=== PATIENT | male | born 1960 | race Caucasian/White ===

== ENCOUNTER 2023-09-07 22:01 | Inpatient (IN) | payer OTHER, MEDICARE, SELFPAY ==
[2023-09-07] VITALS (16 sets, daily range): BP systolic 100–133; BP diastolic 75–98; BMI 29.3; BMI 29.2
[2023-09-07 18:25] LABS: % Basophils 0.3 % (0-2); % Immature Granulocytes 0.5 % (0-0.5); % Lymphocytes 10.4 % (20.5-51.1); % Monocytes 11.2 % (1.7-9.3); % Neutrophils 77.6 % (42.2-75.2); Absolute Basophils 0.1 10^3/uL (0-0.2); Absolute Immature Granulocytes 0.1 10^3/uL (0-0.05); Absolute Lymphocytes 1.7 10^3/uL (1.2-3.4); Absolute Monocytes 1.8 10^3/uL (0.1-0.6); Absolute Neutrophils 12.7 10^3/uL (1.4-6.5); Hematocrit 51.3 % (39.0-52.0); Hemoglobin 18.3 g/dL (13.0-18.0); Mean Corp Hgb Conc. 35.7 g/dL (33.0-37.0); Mean Corpuscular Hgb 31.1 pg (27.0-31.0); Mean Corpuscular Volume 87.2 fL (80.0-94.0); Mean Platelet Volume 12.9 fL (7.4-10.4); Nucleated Red Blood Cells % 0 % (-); Platelet Count 112 10^3/uL (130-400); Red Blood Cell Count 5.88 10^6/uL (4.70-6.10); Red Cell Dist. Width 12.3 % (11.5-14.5); White Blood Cell Count 16.4 10^3/uL (4.8-10.8)
[2023-09-07 18:36] LABS: Lactic Acid 1.5 mmol/L (0.7-2.0)
[2023-09-07 18:39] LABS: ALT (SGPT) 35 U/L (0-50); AST (SGOT) 38 U/L (17-59); Albumin 4.1 g/dl (3.5-5.0); Alkaline Phosphatase 67 U/L (38-126); Blood Urea Nitrogen 29 mg/dl (9-20); Calcium 10.3 mg/dl (8.4-10.2); Carbon Dioxide 29 mmol/L (22-30); Chloride 96 mmol/L (98-107); Glucose 116 mg/dl (70-99); Lipase 98 U/L (23-300); Potassium 4.3 mmol/L (3.5-5.1); Sodium 135 mmol/L (135-145); Total Bilirubin 2.1 mg/dl (0.2-1.3); Total Protein 7.4 g/dl (6.3-8.2); eGFR 51.35
[2023-09-07 18:49] LABS: NT-proBNP 7690 pg/ml; Troponin I 0.021 ng/ml
--- NOTE | 2023-09-07 18:54 | ED.GENMED ---
History of Present Illness
General
Chief Complaint: Heart Rate Problem
Source: patient
Exam Limitations: none
Time Seen by Provider: 09/07/23 18:40
Travel History
Have you had any contact with someone who has COVID-19?: No
Do you have any symptoms of coronavirus? Fever > 100 degrees, chills, cough, shortness of breath, sore throat, loss of taste or smell, muscle aches, or headache?: No
History of Present Illness
History of Present Illness:
This is a 63 year old male that comes in with multiple complaints. States that he started on Thursday with severe abd pain. States that this continued into Thursday and he was unable to sleep last night. States that he also started with chest pain
last night. States that he went to and was told to come to the ER. States that he has never seen a client retention specialist and does not have a family doctor. States that he has had some SOB with the chest pain, Nausea, headache, lightheaded when he gets up.
Denies any fever, chills, vomiting, diarrhea, urinary burning.
Past History
Past History
ED Past Medical History: None and Cancer (Skin CA)
ED Past Surgical History: Orthopedic (Left ACL replacement, Meniscus repair, Left shoulder surgery. Left hip fracture repair) and Other (Hernia, Skin graft)
Social History
Tobacco: Non-smoker
Alcohol: None
Drug: None
Personal:
Living: with family
Review of Systems
Review of Systems
All Other Systems: ROS reviewed and negative except as documented in HPI and ROS
Constitutional: Reports no symptoms; Denies fever or chills
EENT: Reports no symptoms
Respiratory: Reports trouble breathing; Denies cough
Cardiac: Reports chest pain
ABD/GI: Reports abdominal pain and nausea; Denies vomiting or diarrhea
: Reports no symptoms; Denies dysuria, frequency or urgency
Musculoskeletal: Reports no symptoms
Skin: Reports no symptoms
Neurological: Reports dizzy (when getting up) and headache
Psychiatric: Reports no symptoms
Phy Exam
General Physical Exam
General Presentation: no apparent distress
General age: appears stated age
General Skin: warm and dry
General Habitus: normal
General Mental: alert
General Hydration: dry mucous membranes
ENT Exam
ENT Exam: TM's normal, pharynx normal and neck supple
Eye Exam
Eye Exam: EOMI
Cardiovascular Exam
Cardiovascular Exam: no edema, normal peripheral pulses, irregularly irregular and tachycardia
Pulmonary Exam
Pulmonary Exam: lungs clear, no respiratory distress, no rales, chest non tender, no crackles, no rhonchi, no wheezing and no cough
Gastrointestinal Exam
Gastrointestinal Exam: normal bowel sounds, soft, no organomegaly, no pulsatile mass, non distended and tender (Left lower abd tenderness with palpation)
Musculoskeletal Exam
Musculoskeletal Exam: full ROM and no edema
Skin Exam
Skin Exam: normal color, warm/dry, no rash and no petechia
Psychiatric Exam
Psychiatric Exam: normal mood/affect
Course
Orders/Labs/Results
Orders:
Orders
09/07/23 Breakfast
Regular
At Your Request: Full Participation
09/07/23 18:00
Electrocardiogram (*1) Urgent
Reason for Study: Chest Pain
CR Chest - 2 Views Urgent
Comment:
Reason For Exam: SOB
09/07/23 18:01
EKG- Treatment ONCE
09/07/23 18:13
Complete Blood Count/With Diff Urgent
Comprehensive Metabolic Panel Urgent
Lactic Acid Urgent
Lipase Urgent
NT-proBNP Urgent
Troponin I Urgent
09/07/23 18:53
0.9% Sodium Chloride 1000 ml [Nss] 1,000 ml IV BOLUS
Diltiazem 125 mg/125 ml Nss [Cardizem] 125 mg in 125 ml IV NOW
Initial dose in mg/hr, then titrate:: 5
Titrate to keep:: Heart rate 80-100 bpm
Titrate by mg/hr:: 5 mg/hr
Frequency of titrations (minutes):: 15
Maximum dose in mg/hr:: 15
Diltiazem HCl [Cardizem] 10 mg IV NOW STA
09/07/23 18:54
CT Abd/pelvis W Iv Cont Urgent
Comment:
Reason For Exam: left sided abd pain
09/07/23 18:58
Add On- LAB Urgent
Tests Added?: TSH with reflex free T4
09/07/23 19:01
TSH Reflex To Free T4 Urgent
09/07/23 21:03
CefTRIAXone [Rocephin] 1,000 mg IV NOW STA
09/07/23 21:09
Urinalysis Reflex To Culture Urgent
Date Specimen was Collected: 09/07/23
Time Specimen was Collected: 21:07
Urine Microscopic Reflex Cult Urgent
09/07/23 21:12
Sterile Water [Sterile Water For Injection] 10 ml .ROUTE .[facility]
09/07/23 21:50
Admit/Transfer Patient As Directed
Co-Sign Provider:
Level of Care: Inpatient admission
Assign to:: IVU
Physician / Group: George
Diagnosis: A-fib with RVR
Reason for Hospitalization: Cardizem drip
Expected length of stay greater than two midnights?: Yes
ELOS- Estimated Length of Stay in days: 3
I certify the patient meets the requirements for IP care: Yes
09/07/23 21:51
Code Status As Directed
Resuscitation Status: Full Code
09/07/23 23:36
Acetaminophen [Tylenol] 650 mg PO Q4HPRN PRN
Diltiazem 125 mg/125 ml Nss [Cardizem] 125 mg in 125 ml IV PER PROTOCOL
Currently infusing. Continue current dose and titrate:: Yes
Titrate to keep:: Heart rate 80-100 bpm
Titrate by mg/hr:: 5 mg/hr
Frequency of titrations (minutes):: 15
Maximum dose in mg/hr:: 15
09/07/23 23:36
Echo 2D MMode Color/Doppler Routine
Reason for Study: new a-fib
Cardiology Consult: Arsh Van
Activity As Directed
Activity Level: Out of Bed-Early Mobility
With Assistance
Bladder Scan As Directed
Follow Bladder Retention/Intermittent Cath Algorithm?: Yes
PRN if no void in __ hours: 6
Frequency: Per Retention Algorithm
If Bladder Scan Result >: 400
then:: Straight cath
I&O [Intake/ Output] As Directed
Frequency: q12h
Pneumatic Compression Sleeves As Directed
Type: Knee high
Straight Cath As Directed
Frequency: Per Retention Algorithm
Additional Instructions: straight cath as needed per acute urinary retention algorithm for 24 hrs
Additional Instructions: for bladder scan greater than 400 mL
Vital Signs As Directed
Frequency: Per unit guidelines
Weight As Directed
Frequency: Daily
DX Deep Vein Thrombosis Video Routine
09/08/23 00:00
Heparin 5,000 units SC Q8
09/08/23 06:00
Basic Metabolic Panel IN AM
Complete Blood Count/No Diff IN AM
Magnesium IN AM
Abnormal Lab Results
09/07/23 09/07/23
18:13 21:09
WBC 16.4 H 10^3/uL
(4.8-10.8)
Hgb 18.3 H g/dL
(13.0-18.0)
MCH 31.1 H pg
(27.0-31.0)
Plt Count 112 L 10^3/uL
(130-400)
MPV 12.9 H fL
(7.4-10.4)
Abs Immat Gran (auto) 0.1 H 10^3/uL
(0-0.05)
Absolute Neuts (auto) 12.7 H 10^3/uL
(1.4-6.5)
Absolute Monos (auto) 1.8 H 10^3/uL
(0.1-0.6)
Neutrophils % 77.6 H %
(42.2-75.2)
Lymphocytes % 10.4 L %
(20.5-51.1)
Monocytes % 11.2 H %
(1.7-9.3)
Chloride 96 L mmol/L
(98-107)
BUN 29 H mg/dl
(9-20)
Creatinine 1.5 H mg/dL
(0.7-1.3)
Glucose 116 H mg/dl
(70-99)
Calcium 10.3 H mg/dl
(8.4-10.2)
Total Bilirubin 2.1 H mg/dl
(0.2-1.3)
Urine Ketones 1+ A
(Negative)
Ur Occult Blood Reflex 2+ A
(Negative)
Urine RBC 3-6 A /HPF
(0-2)
09/07/23 18:13
09/07/23 18:13
Leukocytosis. Hgb elevated. Plt low. Chloride slightly low. Dehydration. Glucose nonfasting. Total anyi elevation. Lactic acid normal at 1.5, Lipase normal at 98 Troponin 0.021, Pro-BNP 7690
Urine negative for infection.
Vital Signs
Initial and Last Documented VS:
Initial Vital Signs
Temp Pulse Resp BP Pulse Ox
98.3 F 71 20 112/78 96
09/07/23 17:55 09/07/23 17:55 09/07/23 17:55 09/07/23 17:55 09/07/23 17:55
Last Documented Vital Signs
Temp Pulse Resp BP Pulse Ox
97.8 F 115 22 121/88 94
09/07/23 23:41 09/07/23 23:42 09/07/23 23:42 09/07/23 23:42 09/07/23 23:42
MDM/Problems Addressed
Differential Diagnosis Includes:
Atrial fib , Diverticulitis, Dehydration
MDM/Problems Addressed:
This is a 63 year old male that comes in with multiple complaints. States that he started on Thursday night with severe abd pain. This continued into Thursday and last night he started with chest pain and was unable to sleep.
Will check labs, Start IV Cardizem and get CT of abd/pelvis.
Back into see patient. Explianed again that he would be admitted due to the New onset Atrial fib. On His CT scan there is also 2 masses noted on the left kidney and cyst on the right. This could be infection but will need further evaluation. Will
start IV antibiotics and admit patient. Hospitalist notified.
Chronic conditions affecting care:
NA
Acute Exacerbation and/or Progression of Chronic Illness:
NA
*Radiology
Radiology exam reviewed: radiology read reviewed (CT- findings suggesting 2 left renal masses concernng for malignancy or infection. Not the typical appearance of pyelonephritis but not excluded. Clinical and laboratory correlation recommended.
Simple right renal cyst. Moderate fecal material throughout the colon. Mild diffuse bladder wall ) and other (CT cont- wall thickening concerning for cystitis versus bladder outlet obstruction. New. Mild prostate hypertrophy. Progressed. Chest- no
acute cardiopulmonary process. )
*Pulse Oximetry
Patient hypoxic: no
*EKG
Heart Rate: 155
Rate: tachycardiac
Rhythm: a-fib
[place]: left axis deviation
QRS Pattern: normal QRS
Ischemia: no ischemia
*Aircraft Communicator Interpretation
Rate: tachycardiac
Interpretation: abnormal
Heart Rate: 185
Rhythm: a-fib
*Critical Care Note
Total Time (30-74mins, 75-104mins- exclusive of procedures): Not Applicable
ED Attending Note
-
Portions of this chart may have been created with voice recognition software.� Occasional wrong word or��sound alike� substitutions may have occurred due to the inherent limitations of voice recognition software.
Discharge Plan
Departure
Patient Disposition: Admit
Date of Disposition: 09/07/23
Time of Disposition: 21:12
Admit to: Telemetry
Presentation/result/management discussed w/ accepting MD/DO: Hospitalist
Patient with high blood pressure during this ER visit?: No
Condition: Good
Covid-19: Not Applicable
Discharge Problem:
Atrial fibrillation, new onset, Left kidney mass
Interventions
Interventions:
*General Assessment Last Done: 09/07/23 17:55
*Neglect/Abuse Screening Last Done: 09/07/23 18:46
ED- Fall Risk Assessment Last Done: 09/07/23 23:42
*Nursing Disposition Last Done: 09/07/23 23:42
ED- Cardiac Assessment Last Done: 09/07/23 18:44
ED- Pulmonary Assessment Last Done: 09/07/23 18:44
Discharge Date and Time
Discharge Date/Time: 09/07/23 23:45
[2023-09-07] MEDS: CARDIZEM 10 MG IV (19:03)
[2023-09-07] MEDS: CARDIZEM 125 IV (19:03)
[2023-09-07] MEDS: NSS 1000 IV ×2 (19:04→23:58)
[2023-09-07 20:04] LABS: TSH Reflex To Free T4 1.37 uIU/ml (0.47-4.68)
[2023-09-07] MEDS: ROCEPHIN 1000 MG IV (21:14)
[2023-09-07 21:18] LABS: Urine Albumin Trace (Neg - Trace); Urine Bilirubin Negative (Negative); Urine Character Clear (Clear); Urine Color Yellow; Urine Glucose Negative (Negative); Urine Ketone 1+ (Negative); Urine Leukocyte Negative (Negative); Urine Nitrite Negative (Negative); Urine Occult Blood 2+ (Negative); Urine Specific Gravity 1.015 (<1.030); Urine Urobilinogen 1+ (Neg - 1+)
[2023-09-07 21:26] LABS: Urine Squamous Cell 0-2 /LPF (Few); Urine White Cell 0-2 /HPF (0-5)
[2023-09-07 21:27] LABS: Urine Hyaline Cast 0-2 /LPF (0-2); Urine White Cell Cast 0-2 /LPF
--- NOTE | 2023-09-07 21:57 | HPS.HSE ---
Addendum entered and electronically signed by Micha Vazquez DO 09/07/23 23:40:
Patient seen and examined independently. Agree with findings an plan as set forth by Rosanna Jansen PA-C.
Patient is a 63y M with no significant PMH who presents to ED for evaluation of rapid A-Fib. Patient states that he has been experiencing L chest discomfort - mostly if lying on his L side at night. This has been ongoing for a few months.
Thursday evening, patient developed sharp LLQ pain after eating. His symptoms resolved, but then recurred sometime later - also after eating. He had some nausea but no emesis. No diarrhea. No fevers / chills. Patient states that he has had
nothing to eat or drink since Thursday evening. Today he presented to an Urgent Care for evaluation of his symptoms and he was noted there to be in rapid A-Fib. He has no palpitations or SOB.
Ass:
Atrial Fibrillation with Rapid Ventricular Response - Unknown Duration
LLQ Abdominal Pain
Left Renal Mass Lesion
Leukocytosis
Polycythemia
ELVER
Plan:
Admit to monitored bed for further evaluation and treatment.
IV Cardizem and titrate as needed for rate control.
Cardiology evaluation.
Hold on oral anticoagulation for now pending further work-up of renal lesion, etc.
Urology evaluation for L renal mass - ? incidental.
No clear etiology of his LLQ discomfort / nausea.
Monitor for any new / recurrent symptoms.
IVF support for apparent hypovolemia / hemoconcentration.
Follow for improvement in renal function / labs.
UA is not suggestive of infection.
Observe off of abx for now.
Original Note:
Family Physician
-
Family Physician: * NONE
Chief Complaint
-
Chest and Abdominal Pain
History of Present Illness
Patient is a 63 y/o male without significant past medical history who presents with chest and abdominal pain. Patient reports he has been experiencing left sided chest discomfort intermittently for a while. He reports pain seems to be worse when
he lays on his left. Over the weekend he developed lower abdominal pain. He reports associated nausea, and constipation. He reports waking up frequently the past two nights and admits to urinary frequency. He denies fevers, sweats or chills.
Medical History
Past Medical History
Past Medical History: Reports None
Past Surgical History: Reports Other
Additional Past Surgical History:
Left ACL Repair/Replacement
Meniscus Repair
Left Shoulder Surgery
Left Hip Fracture Repair
Hernia Repair
Social History
Tobacco: Non-smoker
Alcohol: None
Family History
Family History: Not pertinent
Allergies / Home Medications
Allergies reflects when Allergies were last updated in [employer].
Home Medications with original date entered in [employer]
Allergy/Medication List:
Allergies
Allergy/AdvReac Type Severity Reaction Status Date / Time
No Known Allergies Allergy Verified 09/07/23 17:54
Home Medications
No Meds [No Current Medications] 09/07/23
Review of Systems
-
A 12 point ROS was completed and negative except as noted: Yes
Constitutional: Denies Fever or Chills
Respiratory: Denies Cough
Cardiac: Reports See HPI
Abdomen/GI: Reports See HPI
Physical Exam
Vital Signs
Vital Signs
Temp Pulse Resp BP Pulse Ox
98.3 F 133 18 131/78 95
09/07/23 17:55 09/07/23 21:32 09/07/23 21:32 09/07/23 21:15 09/07/23 21:32
Physical Exam
General: Comfortable and Conversant
HEENT: Anicteric and Moist mucous membranes
Respiratory: Clear and Non Labored Respirations
Cardiac: S1/S2, Irregular Rhythm and Tachycardia
GI: Soft, Non Tender and Other (Slightly hypoactive bowel sounds)
Rectal: Deferred by Provider
Musculoskeletal: No Clubbing, No Cyanosis and No Edema
Skin: Warm and Dry
Neuro: Awake, Alert, Oriented and Nonfocal/grossly intact
Laboratory Results
-
09/07/23 18:13
09/07/23 18:13
Laboratory Results
Lactic Acid 1.5 mmol/L (0.7-2.0) 09/07/23 18:
Total Bilirubin 2.1 mg/dl (0.2-1.3) H 09/07/23 18:13
AST 38 U/L (17-59) 09/07/23 18:
ALT 35 U/L (0-50) 09/07/23 18:13
Alkaline Phosphatase 67 U/L (38-126) 09/07/23 18:13
Troponin I 0.021 ng/ml 09/07/23 18:13
Lipase 98 U/L (23-300) 09/07/23 18:13
Data Reviewed
-
CT Scan: Report Reviewed by me
Lab Data: Labs Reviewed by me
Impression/Plan
-
Atrial Fibrillation with Rapid Ventricular Response, unknown duration
-Consult Cardiology
-Continue Cardizem drip
-Check Echocardiogram
Elevated Creatinine, suspect ELVER due to poor oral intake
-Continue IVFs
-Repeat creatinine in AM
Left Renal Masses, unclear etiology
-Consider biopsy
DVT proph: SC Heparin
Code Status: Full Code
[2023-09-08] VITALS (7 sets, daily range): BP systolic 104–119; BP diastolic 64–87; BMI 29.3
[2023-09-08] MEDS: HEPARIN 5000 UNITS SC ×2 (00:07→07:57)
[2023-09-08] MEDS: CARDIZEM 125 IV ×4 (00:08→21:36)
--- NOTE | 2023-09-08 00:27 | PTCARENOTE ---
received patient from the ED. AAox3. ambulated to the BR, independently. denies any lightheadedness/dizziness. denies any cp/sob. HR Afib 100s-130s. increased rate with ambulation. bp 117/92. patient denies any palpitations. cardizem gtt infusing at
15 ml/hr. IVF started per order. reviewed plan of care with patient and verbalize understanding. Afib booklet given/reviewed. educated patient to inform RN with any changes. call burgos within reach.
[2023-09-08 05:30] LABS: Hematocrit 42.5 % (39.0-52.0); Mean Corp Hgb Conc. 35.3 g/dL (33.0-37.0); Mean Corpuscular Volume 87.8 fL (80.0-94.0); Red Blood Cell Count 4.84 10^6/uL (4.70-6.10); Red Cell Dist. Width 12.3 % (11.5-14.5); White Blood Cell Count 12.7 10^3/uL (4.8-10.8)
[2023-09-08 05:52] LABS: Blood Urea Nitrogen 25 mg/dl (9-20); Calcium 8.4 mg/dl (8.4-10.2); Carbon Dioxide 24 mmol/L (22-30); Chloride 102 mmol/L (98-107); Estimated Creatinine Clearance 98 ml/min; Glucose 92 mg/dl (70-99); Magnesium 1.7 mg/dl (1.6-2.3); Potassium 3.6 mmol/L (3.5-5.1); Sodium 136 mmol/L (135-145); eGFR > 60.00
[2023-09-08 06:38] LABS: Hepatitis C Antibody Negative (Negative)
[2023-09-08 07:15] LABS: Mean Platelet Volume 12.5 fL (7.4-10.4)
[2023-09-08 07:16] LABS: Platelet Count 94 10^3/uL (130-400)
--- NOTE | 2023-09-08 07:21 | CON.MD ---
Consultation - Medical
-
see dictated note
pt without regular medical care
last admit for hernia repair
denies prior gu hx
on thursday developed sig LLQ/groin pain with nausea- persisted
no voiding sx's/dysuria/fevers/hematuria
went to urgent care primarily for pain- found to be in rapid afib- sent to ER
no real pain since admit
no fevers
wbc mildly elevated/lower this am/ ua negative
had CT- unusual hypodensities in left kidney- no obstruction- radiology with ? tumor vs pyelo
pt comfortable this am
plan
i see no evid of gu etiology for pain unless pt passed stone OR- possible appearance of kidney in setting of afib is of renal infarct (will review with radiology today)
would rec supportive medical care and outpt f/u for MRI after discharge
will follow
[2023-09-08] MEDS: MIRALAX 17 GRAMS PO (07:58)
[2023-09-08] MEDS: TYLENOL 650 MG PO (08:02)
--- NOTE | 2023-09-08 08:37 | CON.CAR ---
Addendum entered and electronically signed by Akira Perkins MD 09/08/23 10:41:
I saw and examined the patient.
The PHYSICIAN'S AIDE's note was reviewed and I agree with the note.
63-year-old male who presented with abdominal pain left lower quadrant which started 3 days ago. Patient incidentally noted to have A-fib with RVR with of unknown duration. Patient denied having palpitations heart racing or feeling short of breath
although the day he went to the ER his daughter thought he was breathing more heavily. Abdominal CT showed 2 left renal masses mass versus infection. Urology raising question of renal infarct. On exam patient appears comfortable in no distress.
A-fib is rate controlled on IV Cardizem. Temp 100.5. Patient has no prior cardiac history. He has had some chest wall discomfort if he rolls on his left-hand side he has noticed this over the past week but no chest discomfort with other
activities.
New onset atrial fibrillation
-Unknown duration
-CHADSVASC 1 but would consider higher if patient truly has renal infarct.
-Continue IV Cardizem for rate control. Consider transition to oral Cardizem tomorrow if able to take p.o. With plan for continued rate control and anticoagulation for now. Will assess whether additional procedures may be required in the future.
Also if patient does have evidence of renal infarct/embolic event we would prefer him to be on anticoagulation a longer period of time before considering MARY/cardioversion.
-Anticoagulation with IV heparin for A-fib and possible renal infarct. Reviewed with urology. No contraindication from urologic standpoint.
-Echo
-Fever. Low-grade. Exact etiology unclear. Question of infection as possible cause for kidney abnormality on CT. Low-grade temp could also be caused by renal infarct. Blood cultures being drawn. Antibiotics to be directed by primary team
Original Note:
Consultation
Consultation Request
Date/Time Consultation Requested: 09/07/23 23:00
Date/Time Consultation Performed: 09/08/26 08:35
Requesting Provider: Rosanna Jansen PA-C
Performing Provider: RG Light for Dr. Perkins
Reason for Consultation: Atrial fibrillation with rapid ventricular response
Medical History
-
Chief Complaint: Abdominal pain, chest pain
History of Present Illness:
Rene Nance is a 63-year-old male without significant past medical history other than orthopedic surgeries presents with abdominal pain and chest pain. He reports his abdominal pain started 3 days ago. It is worst on his left lower side. It
disrupted his sleep and he had associated nausea. He did not have any diarrhea. Last evening he had chest pain with shortness of breath. It was left-sided and anterior. It did not radiate. It did not get worse with exertional activities.
Laying on his side made it worse. His chest pain would come and go but did not last more than 5 minutes. He was found to be in atrial fibrillation with rapid ventricular response.
Past Medical History
Past Surgical History: Orthopedic
Social History
Tobacco: Non-Smoker
Alcohol: None
Employment: Employed
Family History
Family History: Early CAD (Father with CABG in 40s and in 50s.)
Allergies / Home Medications
Allergy/AdvReac Type Severity Reaction Status Date / Time
No Known Allergies Allergy Verified 09/07/23 17:54
Medication Instructions Recorded Confirmed Type
No Meds [No Current Medications] 09/07/23 09/07/23 History
Review of Systems
-
History Source: Patient
All other systems: Negative unless noted
Constitutional: Fatigue
Cardiac: Chest Pain
Abdomen/GI: Abdominal Pain and Nausea
Physical Exam
Vital Signs
Temp Pulse Resp BP Pulse Ox
100.5 F H 88 16 116/87 94
09/08/23 07:37 09/08/23 07:45 09/08/23 07:37 09/08/23 07:39 09/08/23 07:37
Lab Results
09/08/23 05:04
09/08/23 05:04
Troponin I 0.021 ng/ml 09/07/23 18:13
Dmp-L-Wxzhsokhlem Pept 7690 pg/ml 09/07/23 18:13
Physical Exam
General: Well Developed, Well Nourished, No Apparent Distress and Comfortable
HEENT: Normocephalic, Anicteric and Moist Mucous Membranes
Respiratory: Clear and Non Labored Respirations
Cardiac: S1/S2 and Irregular Rhythm; Negative Peripheral Edema
Breast: Deferred by me
GI: Soft, Non Tender, Non Distended and Normal Bowel Sounds
Rectal: Deferred by Provider
Genito-urinary: No Costovertebral Tender
Musculoskeletal: No Clubbing, No Cyanosis and No Edema
Skin: Warm and Dry
Neuro: AO x 3
Hematologic/Lymphatic: No Lymphadenopathy
Psych: Calm
Impression / Plan
-
Left-sided abdominal pain
-Leukocytosis & febrile, blood cultures pending, per primary
Chest pain
-Currently CP free
-Troponin 0.021, trend
Atrial fibrillation with right ventricular response
-Rates improved on diltiazem 15 mg/hour
-Oral Anticoagulation: None prior to arrival, start heparin gtt
-[id number]: score 1 (age 65-74)
-TSH 1.37
-Echocardiogram today
-Admits to snoring and waking with fatigue in am along with falling asleep in the afternoon, outpatient ELIJAH evaluation
Left renal masses, etiology unclear, Urology believes infarction, heparin gtt as above
ELVER, resolved with intravenous fluids
Data Reviewed
-
EKG: Report Reviewed by me (Atrial fibrillation with right ventricular response, PVCs, nonspecific ST abnormality, rate 155)
--- NOTE | 2023-09-08 08:38 | PTCARENOTE ---
Assumed care of pt from night RN. Pt received awake and alert, Ox3. VSs, CM shows AF 80-100's Cardizem drip infusing through R wrist at 15 mg/hr, POX 94% on RA. Pt denies any pain or discomfort at this time. Tylenol 650 mg given for fever of
100.3 as per SEP, two sets of BC sent to lab. Will continue to monitor closely.
[2023-09-08] MEDS: NSS 1000 IV (09:44)
[2023-09-08 10:30] LABS: APTT 31.7 Sec (23.4-35.0)
--- NOTE | 2023-09-08 10:33 | CM ---
Reviewed chart. Met with Mr. Nance to review discharge plans. He states prior to admission he resides with is son in a two story home without any steps to enter. He states he has to go up a full flight of steps to get to bedroom/full bathroom. He
states he has a powder room on the first floor. He states prior to admission he was independent with ambulation and adls. He states he does not have any DME in the home. He states he has a prescription plan and uses [facility]. Medical work-up
in progress. The discharge plan is to return home with his son when medically stable.
[2023-09-08 10:46] LABS: Troponin I < 0.012 ng/ml
[2023-09-08] MEDS: HEPARIN 25000 UNITS/250 ML IV (11:08)
--- NOTE | 2023-09-08 11:13 | W.PN.HOSP.TC ---
Today's Communication/Plan
-
see A/P
Assessment / Plan
Assessment / Plan
63 y/o male without significant past medical history who presented with chest and abdominal pain.�Patient reported he has been experiencing left sided chest discomfort intermittently for a while.� Pain seemed to be worse when he lays on his left.�
Over the weekend he developed lower abdominal pain. He reports associated nausea, and constipation. He reports waking up frequently the past two nights and admits to urinary frequency.� He denies fevers, sweats or chills.
A/P:
# New diagnosis of Atrial Fibrillation with resolved Rapid Ventricular Response, unknown duration of Afib
Continue IV Cardizem for rate control.� Consider transition to oral Cardizem per card.
Anticoagulation with IV heparin for A-fib and possible renal infarct.�
Plan for continued rate control and anticoagulation for now.�
Check Echo
Cardiology on board
# Low-grade fever, etiology unclear.�
? infection vs renal infarct.�
UA is neg for UTI
Follow Blood cultures
Start empiric Zosyn for now
# resolved prerenal ELVER
SCr 1.5 -> 0.9
Observe off further IVF
# Left Renal Masses, felt likely renal infarct in setting of A Fib
Uro on board , recc treatment of A fib. Pt can follow up outpt for MRI after discharge
DVT proph: SC Heparin
Code Status: Full Code
DW Uro
DW RN
Anticipated Discharge: > 48 hours
Subjective/Interval History
-
Date of Service: September 08, 2023
Objective Data
-
Labs:
Laboratory Results
09/08/23 09/08/23
05:04 10:10
WBC 12.7 H
Hgb 15.0
Hct 42.5
Plt Count 94 L
APTT 31.7
Sodium 136
Potassium 3.6
Chloride 102
Carbon Dioxide 24
BUN 25 H
Creatinine 0.9
Glucose 92
Calcium 8.4 D
Vital Signs:
Vital Signs
Temp Pulse Resp BP Pulse Ox
38.1 C H 88 16 116/87 94
09/08/23 07:37 09/08/23 07:45 09/08/23 07:37 09/08/23 07:39 09/08/23 08:34
I&O
09/07/23 09/08/23 09/09/23
06:59 06:59 06:59
Intake Total 950 / 950
Output Total 350 / 350
Balance 600 / 600
Review of Systems
-
All other systems: Reviewed and negative
Physical Exam
-
General: Well Developed, Well Nourished, No Apparent Distress, Comfortable and Conversant; Negative Respiratory Distress
HEENT: Normocephalic, Atraumatic, Nose Appears Normal and Ears Appear Normal; Negative Oxygen
Respiratory: Clear to Auscultation and Non Labored Respirations; Negative Accessory Resp Muscle Use
Cardiac: Regular Rhythm and S1/S2
GI: Soft, Nontender, Nondistended and Normal Bowel Sounds
Skin: Warm and Dry
Neuro: Awake, Alert, Oriented and AO x 3
Psych: Calm and Intact Judgement/Insight
Data Reviewed
-
CT Scan: Report Reviewed by me
Labs: Labs Reviewed by me
--- NOTE | 2023-09-08 11:35 | PTCARENOTE ---
Heparin drip started at 1,000 u/hr as ordered, infusing through R[facility], first PTT due at 1730.
[2023-09-08] MEDS: ZOSYN 50 IV ×2 (12:36→17:21)
[2023-09-08 18:53] LABS: APTT 33.9 Sec (23.4-35.0)
--- NOTE | 2023-09-08 22:04 | PTCARENOTE ---
Pt rec'd at change of shift awake,alert flat affect. lungs clear, afib rates in 80-90's on telemetry. Pt called nursing to room at this time c/o increased pain on left side when lying on right with deep breathing. pain minimal when lying on left
side; feels best when lying supine. nauseated at beginning of shift after eating eggs subsided without medication. heparin and Cardizem gtts continued.
[2023-09-09] VITALS (8 sets, daily range): BP systolic 107–131; BP diastolic 72–115
[2023-09-09] MEDS: ZOSYN 50 IV ×5 (00:30→23:16)
[2023-09-09 01:04] LABS: APTT 58.8 Sec (23.4-35.0)
[2023-09-09] MEDS: HEPARIN 25000 UNITS/250 ML IV (06:27)
[2023-09-09] MEDS: CARDIZEM 125 IV (07:38)
[2023-09-09 07:41] LABS: Hemoglobin 14.9 g/dL (13.0-18.0); Mean Corp Hgb Conc. 35.5 g/dL (33.0-37.0); Mean Corpuscular Hgb 31.2 pg (27.0-31.0); Mean Corpuscular Volume 88.1 fL (80.0-94.0); Mean Platelet Volume 12.7 fL (7.4-10.4); Platelet Count 79 10^3/uL (130-400); Red Blood Cell Count 4.77 10^6/uL (4.70-6.10); Red Cell Dist. Width 11.9 % (11.5-14.5); White Blood Cell Count 9.9 10^3/uL (4.8-10.8)
--- NOTE | 2023-09-09 07:43 | W.PN.URO.CBU ---
Today's Communication / Plan
-
supportive medical care
Assessment / Plan
-
afib
suspected renal infarct
left groin pain
i did review ct with radiology yesterday and appearance in clinical setting c/w left renal infarct- there is no urologic intervention indicated
his pain continues- but is not in the region of the kidney- is positional and has no palpable abnl- do not believe this is gu related- possibly musculoskeletal
no fevers- awaiting blood cx's and labs today
urologic plana t this point is outpt f/u to schedule MRi in 8 weeks
Diagnosis
-
Date of Service: September 09, 2023
-
Patient Diagnosis:
AFIB
ABNL CT SCAN- SUSPECT INFARCT
LEFT GROIN PAIN
Subjective
-
pt generally rate controlled
no urinary sx's/hematuria or flank pain
still with positional pain in left groin/pubic bone and hip
no palpable abd pain or cva tenderness
Objective
-
Vital Signs
Temp Pulse Resp BP Pulse Ox
98.4 F 86 16 104/83 96
09/09/23 07:26 09/09/23 07:26 09/09/23 07:26 09/08/23 22:12 09/09/23 07:26
Intake and Output
09/08/23 09/09/23 09/10/23
06:59 06:59 06:59
Intake Total 950 / 950 1036 / 1036
Output Total 350 / 350 600 / 600
Balance 600 / 600 436 / 436
Intake:
Oral fluids 450 / 450
IV fluids (Total) 500 / 500 786 / 786
Heparin 156 / 156
cardizem 130 / 130
normal saline 500 / 500 500 / 500
IV piggybacks 250 / 250
Output:
Urine, Voided 350 / 350 600 / 600
Other:
Number of approximated MODERATE 1
amounts of urine
Review of Systems
-
Constitutional: Fatigue
Respiratory: No Symptoms
Cardiac: No Symptoms
Abdomen/GI: Nausea
: No Symptoms
Physical Exam
-
General- NAD
Abdomen - soft, non-tender
Genitalia - normal
Skin - warm & dry with no rash
Neuro - AOx3, no motor deficits
Extremities - no clubbing, no cyanosis, no edema
[2023-09-09 07:55] LABS: APTT 64.3 Sec (23.4-35.0)
[2023-09-09] MEDS: MIRALAX 17 GRAMS PO (08:36)
--- NOTE | 2023-09-09 09:23 | W.PN.CD ---
Today's Communication / Plan
-
Stop IV dilt
Begin HF BB
Move to Eliquis when OK with urology and medicine
? likely stop heparin, defer evaluation of thrombocytopenia to medicine
No plans for cardioversion this admission
Impression / Plan
-
Progressive thrombocytopenia
- Plt 118 in 04/2012
- plt 112 on admit
- plt now 79
- Pt on IV heaprin. Will ask hospitalist if heparin should be stopped and thrombocytopenia be further evaluated
New Afib, duration unknown, pattern unknown
- Rate: better on IV dilt
- Rhythm: still in AFib. No plans for early cardioversion, likely after 4 weeks of OAT +/- with MARY at that time
- Anticoagulation: currently on IV heparin. Urology OK with OAT if H/H stable for 24 hours
- [id number] is at least 1 (age1) and likely at least 3 (urology suspects renal infarct, that could change based on MRI planned for 8 weeks from now
Chest pain
- Several months of positional but not exertional very brief chest pain
- Does not seem ischemic
Structural heart disease:
- Echo 09/08/2023: LVEF 45-50%, RV enlarged, mod LAE, AoV sclerosis
- EKG 10/2021 with LAD and LAE
- CXR this admit with cardiomegaly
- pBNP elevated but no HF on CXR or by symptoms. Elevated pBNP can be seen in AFib but this is higher than just AFib I suspect
- Can treat for a tachy-myopathy and see if CXR and echo improve
Left renal masses
- etiology unclear, Urology believes infarction. MRI in 8 weeks planned
LLQ pain, unknown etiology
ELVER, resolved with intravenous fluids
Physical Exam
Vital Signs/Labs
Vital Signs
Temp Pulse Resp BP Pulse Ox
98.4 F 78 16 121/83 96
09/09/23 07:26 09/09/23 08:30 09/09/23 07:26 09/09/23 07:27 09/09/23 07:27
09/08/23 09/09/23 09/10/23
06:59 06:59 06:59
Actual Weight 106 kg 106.3 kg
09/09/23 07:34
APTT 64.3 Sec (23.4-35.0) H 09/09/23 07:34
Magnesium 1.7 mg/dl (1.6-2.3) 09/08/23 05:04
09/07/23
18:13
Ohu-B-Nnfllzxglnc Pept 7690
LAB Results
09/07/23 09/08/23
18:13 10:10
Troponin I 0.021 < 0.012
Physical Exam
Constitutional: No acute distress
Cardiovascular: Systolic murmur absent, S1S2 is normal and Murmur/rub/gallop absent
Respiratory: Respiratory effort normal, Lungs clear to auscul. and Crackles Absent
GI: Soft, Distention absent, Flat, Non tender and Normal bowel sounds
Neuro/Psych: AO x 3
55 min spent: review all records, discuss with his nurse, communicate with hospitalist and urology, prepare this document
Data Reviewed
-
Date of Service: September 09, 2023
[2023-09-09 09:53] LABS: Blood Urea Nitrogen 19 mg/dl (9-20); Calcium 8.6 mg/dl (8.4-10.2); Carbon Dioxide 23 mmol/L (22-30); Chloride 103 mmol/L (98-107); Estimated Creatinine Clearance 98 ml/min; Glucose 84 mg/dl (70-99); Potassium 3.7 mmol/L (3.5-5.1); Sodium 132 mmol/L (135-145); eGFR > 60.00
[2023-09-09] MEDS: COLACE PO ×2 (10:20→19:44)
[2023-09-09] MEDS: TOPROL XL 50 MG PO ×2 (10:20→19:40)
--- NOTE | 2023-09-09 10:37 | CON.ONC ---
Impression
Impression
Thrombocytopenia
Atrial Fibrillation with Rapid Ventricular Response
Left Renal Mass c/w infarction (following w urology)
Plan
Plan
Was on IV heparin for A. Fib x just 2 days. Currently HELD with drop in PLT count but unlikely HIT. 4T score suggests < 5% likelihood of HIT. HIT ESTELLE ordered.
Would transition to PO Eliquis especially as no surgery planned. This should be effective for secondary CVA prophylaxis.
Monitor PLT count with F/U CBC in 2-4 weeks on Eliquis.
Patient History
History of Present Illness
CC: LLQ pain, New onset A. Fib. Heme eval for thrombocytopenia
HPI:63y M with no significant PMH and no PCP who presented from urgent care to ED for evaluation of rapid A-Fib. He developed sharp LLQ pain after eating over the weekend. His symptoms resolved, but then recurred sometime later - also after
eating. When he presented to an Urgent Care for evaluation of his symptoms and he was noted there to be in rapid A-Fib. Found to have a left renal mass c/w renal infarct. Started on IV heparin and PLT dropped from 112 to 79. Previous PLT count
in 2011 = 118 suggesting some chronicity to his thrombocytopenia. Some mild easy bruising when doing yard work last summer. No CP or SOB. No leg swelling.
Past-Medical/Surgical History
PMH: None
PSH: Left ACL Repair/Replacement, Meniscus Repair, Left Shoulder Surgery, Left Hip Fracture Repair, Hernia Repair
SH:
Tobacco: Non-smoker
Alcohol: None
FH:: Not pertinent
Patient Medication
Medication Instructions Recorded Confirmed Last Taken Type
No Meds [No Current Medications] 09/07/23 09/07/23 Unknown History
Active Medications
Generic Name Dose Route Start Last Admin
Trade Name Freq PRN Reason Stop Dose Admin
Acetaminophen 650 mg 09/08/23 07:43 09/08/23 08:02
Acetaminophen 325 Mg Tablet PO 10/06/23 07:42 650 mg
Q6HPRN PRN Administration
mild pain/ fever>100.5F
Docusate Sodium 100 mg 09/09/23 09:00 09/09/23 10:20
Docusate Sodium 100 Mg Capsule PO 10/07/23 08:59 Not Given
BID ZOE
Heparin Sodium 25,000 units in 250 mls @ 0 mls/hr 09/08/23 10:00 09/09/23 06:27
Heparin 19698 Units/250 Ml IV 250 mls
PER PROTOCOL ZOE Administration
Protocol
Per Protocol
Piperacillin Sod/Tazobactam Sod 3.375 gram in 50 mls @ 100 mls/hr 09/08/23 12:00 09/09/23 06:01
Zosyn IV 50 mls
Q6H ZOE Administration
Metoprolol Succinate 50 mg 09/09/23 10:00 09/09/23 10:20
Metoprolol 50 Mg Extended Release Tablet PO 10/07/23 09:59 50 mg
BID ZOE Administration
Polyethylene Glycol 17 grams 09/08/23 08:00 09/09/23 08:36
Polyethylene Glycol Powder 17 Grams Packet PO 10/06/23 07:59 17 grams
DAILY ZOE Administration
Sodium Chloride 0 flush 09/07/23 23:00
Sodium Chloride 0.9% (Flush) Syringe IV 10/05/23 22:59
PER PROTOCOL ZOE
Physical Exam
-
General: Well Developed, Well Nourished and No Apparent Distress
Cardiology: S1, S2 and Irregular Rate/Rhythm
Pulmonary: Clear
GI: Soft
Musculoskeletal: No Edema
Extremities: No C/C/E
Neurology: Non Focal
Skin: Warm
Hematologic / Lymphatic: No Lymphadenopathy
Psych: Calm
Labs
Lab Results
WBC 9.9 10^3/uL (4.8-10.8) 09/09/23 07:34
RBC 4.77 10^6/uL (4.70-6.10) 09/09/23 07:34
Hgb 14.9 g/dL (13.0-18.0) 09/09/23 07:34
Hct 42.0 % (39.0-52.0) 09/09/23 07:34
MCV 88.1 fL (80.0-94.0) 09/09/23 07:34
MCH 31.2 pg (27.0-31.0) H 09/09/23 07:34
MCHC 35.5 g/dL (33.0-37.0) 09/09/23 07:34
RDW 11.9 % (11.5-14.5) 09/09/23 07:34
Plt Count 79 10^3/uL (130-400) L 09/09/23 07:34
MPV 12.7 fL (7.4-10.4) H 09/09/23 07:34
Abs Immat Gran (auto) 0.1 10^3/uL (0-0.05) H 09/07/23 18:13
Absolute Neuts (auto) 12.7 10^3/uL (1.4-6.5) H 09/07/23 18:13
Absolute Lymphs (auto) 1.7 10^3/uL (1.2-3.4) 09/07/23 18:13
Absolute Monos (auto) 1.8 10^3/uL (0.1-0.6) H 09/07/23 18:13
Absolute Eos (auto) 0.0 10^3/uL (0-0.7) 09/07/23 18:13
Absolute Basos (auto) 0.1 10^3/uL (0-0.2) 09/07/23 18:13
Immature Gran % 0.5 % (0-0.5) 09/07/23 18:13
Neutrophils % 77.6 % (42.2-75.2) H 09/07/23 18:13
Lymphocytes % 10.4 % (20.5-51.1) L 09/07/23 18:13
Monocytes % 11.2 % (1.7-9.3) H 09/07/23 18:13
Eosinophils % 0.0 % (0-6) 09/07/23 18:13
Basophils % 0.3 % (0-2) 09/07/23 18:13
Creatinine 0.9 mg/dL (0.7-1.3) 09/09/23 07:34
Vital Signs
Vital Signs
Temp Pulse Resp BP Pulse Ox
98.4 F 78 16 121/83 96
09/09/23 07:26 09/09/23 08:30 09/09/23 07:26 09/09/23 07:27 09/09/23 07:27
--- NOTE | 2023-09-09 13:35 | W.PN.HOSP.TC ---
Today's Communication/Plan
-
Monitor vital signs and see plan
Start Eliquis
Continue with metoprolol
Monitor platelets
follow fever curve
Assessment / Plan
Assessment / Plan
63 y/o male without significant past medical history who presented with chest and abdominal pain.�Patient reported he has been experiencing left sided chest discomfort intermittently for a while.� Pain seemed to be worse when he lays on his left.�
Over the weekend he developed lower abdominal pain. He reports associated nausea, and constipation. He reports waking up frequently the past two nights and admits to urinary frequency.� He denies fevers, sweats or chills.
A/P:
# New diagnosis of Atrial Fibrillation with resolved Rapid Ventricular Response, unknown duration of Afib
Was on IV Cardizem, now transition to p.o. metoprolol
Anticoagulation for A-fib and possible renal infarct.� Initially IV heparin was held due to thrombocytopenia however now been evaluated by hematology who is okay with Eliquis. No plans for any intervention by cardiology so started Eliquis 5 mg
twice daily
Echo 09/08 with EF 45 to 50%
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 No plans for cardioversion per cardiology
# Low-grade fever, etiology unclear.�
? infection vs renal infarct.�
UA is neg for UTI
cw empiric Zosyn for now
Hyponatremia
monitor
Thrombocytopenia
Platelet now 79, was 112 on admission on 09/07.
Per previous record in 2011 platelets were 118 suspect some chronicity
Hematology evaluated. Does not think this is related to heparin. HIT panel pending. hematology rec ok for eliquis
# Suspect renal insufficiency
Now improved
Observe off further IVF
# Left Renal Masses, felt likely renal infarct in setting of A Fib
Uro on board , recc treatment of A fib. Pt can follow up outpt for MRI after discharge
DVT proph:eliquis
Code Status: Full Code
General: Well Developed, Well Nourished, No Apparent Distress
HEENT: Normocephalic, Atraumatic
Respiratory: Clear to Auscultation and Non Labored Respirations
Cardiac: irregular Rhythm and S1/S2
GI: Soft, LLQ mild tender, Nondistended
Neuro: Awake, Alert, Oriented and AO x 3
Psych: Calm and Intact Judgement/Insight
Anticipated Discharge: 24 - 48 hours
Subjective/Interval History
-
Date of Service: September 09, 2023
denies chest pain
Objective Data
-
Labs:
Laboratory Results
09/09/23 09/09/23
07:34 14:15
WBC 9.9
Hgb 14.9
Hct 42.0
Plt Count 79 L
APTT 64.3 H Pending
Sodium 132 L
Potassium 3.7
Chloride 103
Carbon Dioxide 23
BUN 19
Creatinine 0.9
Glucose 84
Calcium 8.6
Vital Signs:
Vital Signs
Temp Pulse Resp BP Pulse Ox
97.8 F 106 18 130/82 95
09/09/23 11:46 09/09/23 12:45 09/09/23 11:46 09/09/23 11:46 09/09/23 11:46
I&O
09/08/23 09/09/23 09/10/23
06:59 06:59 06:59
Intake Total 950 / 950 1036 / 1036
Output Total 350 / 350 600 / 600 400 / 400
Balance 600 / 600 436 / 436 -400 / -400
[2023-09-09] MEDS: ELIQUIS 5 MG PO ×2 (14:10→23:15)
--- NOTE | 2023-09-09 14:10 | CM ---
Addendum entered by Chioma Young 09/09/23 14:35:
Reviewed co-pay with Mr. Nance. He is agreeable to the $10.00 co-pay.
Original Note:
Aaked to check co-pay on Eliquis 5 mg po bid. Telephone call to [facility], ([phone]) to check on co-pay. His co-pay would be $50.00 a month. He has commercial insurance so he can use the $10.00 a month co-pay card. Placed the co-pay card in
his red discharge folder. Prior to admission he resides with his son in a two story without any steps to enter. He has a full flight of steps to get to bedroom/full bathroom. He has a powder room on the first floor. Prior to admission he was
independent with ambulation and adls. He does not have any DME in the home. Medical work-up in progress. The discharge plan is to return home with his son when medically stable.
--- NOTE | 2023-09-09 18:10 | PTCARENOTE ---
Pt afebrile, c/o left lower quadrant discomfort but only when he moves in particular ways. Pt had a formed bowel movement then later reported one watery bowel movement, aware, will send a stool for cdiff if watery stools persist. Pt ate 2
meals today.
Heparin discontinued secondary to low platelet count, HIT panel sent, eliquis started. Diltiazem infusion stopped, pt given toprol. He remains in uncontrolled atrial fib at a rate of 110 at best, up to 150 briefly with minimal activity.
--- NOTE | 2023-09-09 23:38 | PTCARENOTE ---
Pt rec'd at change of shift awake,alert c/o 'stretching sensation from left side,intermittent. no nausea, tolerating po fluids. Afib on telemetry with rates 120-150. b/p elevated. checked left vs right arm and right arm found to be lower. PM Eliquis
given late after first dose started late.
[2023-09-10] VITALS (8 sets, daily range): BP systolic 112–148; BP diastolic 64–132; BMI 29.0
[2023-09-10 03:55] LABS: % Basophils 0.4 % (0-2); % Eosinophils 0.6 % (0-6); % Immature Granulocytes 0.3 % (0-0.5); % Lymphocytes 22.5 % (20.5-51.1); % Monocytes 11.4 % (1.7-9.3); % Neutrophils 64.8 % (42.2-75.2); Absolute Eosinophils 0.1 10^3/uL (0-0.7); Absolute Lymphocytes 1.8 10^3/uL (1.2-3.4); Absolute Monocytes 0.9 10^3/uL (0.1-0.6); Absolute Neutrophils 5.1 10^3/uL (1.4-6.5); Hematocrit 42.8 % (39.0-52.0); Hemoglobin 15.5 g/dL (13.0-18.0); Mean Corp Hgb Conc. 36.2 g/dL (33.0-37.0); Mean Corpuscular Hgb 31.1 pg (27.0-31.0); Mean Corpuscular Volume 85.9 fL (80.0-94.0); Mean Platelet Volume 12.9 fL (7.4-10.4); Nucleated Red Blood Cells % 0 % (-); Platelet Count 106 10^3/uL (130-400); Red Blood Cell Count 4.98 10^6/uL (4.70-6.10); Red Cell Dist. Width 11.9 % (11.5-14.5); White Blood Cell Count 7.9 10^3/uL (4.8-10.8)
[2023-09-10 04:18] LABS: Blood Urea Nitrogen 19 mg/dl (9-20); Carbon Dioxide 24 mmol/L (22-30); Chloride 101 mmol/L (98-107); Estimated Creatinine Clearance 98 ml/min; Glucose 94 mg/dl (70-99); Potassium 3.6 mmol/L (3.5-5.1); Sodium 136 mmol/L (135-145); eGFR > 60.00
[2023-09-10] MEDS: ZOSYN 50 IV (06:52)
[2023-09-10] MEDS: COLACE PO ×2 (08:23→19:41)
[2023-09-10] MEDS: ELIQUIS 5 MG PO ×2 (08:23→19:40)
[2023-09-10] MEDS: TOPROL XL 50 MG PO ×2 (08:23→09:30)
[2023-09-10] MEDS: MIRALAX PO (08:23)
--- NOTE | 2023-09-10 08:32 | W.PN.CD ---
Today's Communication / Plan
-
increase Toprol XL to 100mg bid
continue eliquis 5mg bid
Impression / Plan
-
New Afib, duration unknown, pattern unknown
- Rate: still elevated. Increase Toprol XL to 100mg bid
- Rhythm: still in AFib. No plans for early cardioversion, likely after 4 weeks of OAT with MARY at that time given suspected renal infarct
- Anticoagulation: eliquis 5mg bid
- [id number] is at least 1 (age1) and likely at least 3 (urology suspects renal infarct, that could change based on MRI planned for 8 weeks from now
Thrombocytopenia
- Plt 118 in 04/2012
- plt 112 on admit, then down to 79
-heparin stopped, and plt up to 106
-hematology has been consulted: HIT panel sent, but low suspicion for HIT
-OK for eliquis
Chest pain
- Several months of positional but not exertional very brief chest pain
- Does not seem ischemic/ACS
-eventual stress test as outpatient
Structural heart disease: mild cardiomyopathy
- Echo 09/08/2023: LVEF 45-50%, RV enlarged, mod LAE, AoV sclerosis
- EKG 10/2021 with LAD and LAE
- CXR this admit with cardiomegaly
- pBNP elevated but no HF on CXR or by symptoms. Elevated pBNP can be seen in AFib but this is higher than just AFib I suspect
- Can treat for a tachy-myopathy and see if CXR and echo improve: currently on Toprol XL
Left renal masses
- etiology unclear, Urology believes infarction. MRI in 8 weeks planned
LLQ pain, unknown etiology: ? renal infarct
ELVER, resolved with intravenous fluids
Physical Exam
Vital Signs/Labs
Vital Signs
Temp Pulse Resp BP Pulse Ox
98.7 F 122 20 115/72 99
09/10/23 07:40 09/10/23 07:45 09/10/23 07:40 09/10/23 07:42 09/10/23 08:22
09/09/23 09/10/23 09/11/23
06:59 06:59 06:59
Actual Weight 106.3 kg 105.1 kg
09/10/23 03:39
09/10/23 03:39
APTT Cancelled 09/09/23 14:15
Magnesium 2.0 mg/dl (1.6-2.3) 09/09/23 07:34
09/07/23
18:13
Biy-M-Gvgqkvttida Pept 7690
LAB Results
09/07/23 09/08/23
18:13 10:10
Troponin I 0.021 < 0.012
Physical Exam
Constitutional: No acute distress and Comfortable
EENT: Moist mucous membranes
Cardiovascular: Pedal edema is absent, JVD pressure is normal, Systolic murmur absent and Rhythm/rate is irregular
Respiratory: Respiratory effort normal and Lungs clear to auscul.
GI: Soft, Distention absent and Flat
Neuro/Psych: AO x 3
Data Reviewed
-
Date of Service: September 10, 2023
EKG: Other (Tele: A fib 130s)
Echo: Report Reviewed by me
Labs: Labs Reviewed by me
--- NOTE | 2023-09-10 09:46 | W.PN.URO.CBU ---
Today's Communication / Plan
-
at time of discharge- have pt call to schedule appointment with dr browning
Assessment / Plan
-
afib
suspected renal infarct
left groin pain
i did review ct with radiology and appearance in clinical setting c/w left renal infarct- there is no urologic intervention indicated
his pain continues- but is not in the region of the kidney- is positional and has no palpable abnl- do not believe this is gu related- possibly musculoskeletal
no fevers- wbc normalized and cx's negative
urologic plan at this point is outpt f/u to schedule MRi in 8 weeks
please call with any further questions
Diagnosis
-
Date of Service: September 10, 2023
-
Patient Diagnosis:
AFIB
ABNL CT SCAN- SUSPECT INFARCT
LEFT GROIN PAIN
Subjective
-
pt still with elevated heart rate
no hematuria
hgb stable- plts coming up
no wbc- cx's negative
still with some positional LLQ pain
Objective
-
Vital Signs
Temp Pulse Resp BP Pulse Ox
98.7 F 139 20 112/95 99
09/10/23 07:40 09/10/23 09:30 09/10/23 07:40 09/10/23 09:30 09/10/23 08:22
Intake and Output
09/09/23 09/10/23 09/11/23
06:59 06:59 06:59
Intake Total 1036 / 1036 870 / 870
Output Total 600 / 600 1350 / 1350
Balance 436 / 436 -480 / -480
Intake:
Oral fluids 720 / 720
IV fluids (Total) 786 / 786
Heparin 156 / 156
cardizem 130 / 130
normal saline 500 / 500
IV piggybacks 250 / 250 150 / 150
Output:
Urine, Voided 600 / 600 1350 / 1350
Laboratory Results
09/10/23 03:39
09/10/23 03:39
Physical Exam
-
General - well developed, well nourished, no acute distress
Abdomen - soft, non-tender,
Genitalia - normal
--- NOTE | 2023-09-10 10:00 | W.PN.ONC ---
Today's Communication / Plan
-
Patient transition to [facility]
Platelet count improved today
Await HIT 4T score predicts low probability
Impression
Impression
Thrombocytopenia
Atrial Fibrillation with Rapid Ventricular Response
Left Renal Mass c/w infarction (following w urology)
Subjective/Objective
Subjective/Objective
Patient without new complaints. No active bleeding. Continues to have left abdominal discomfort exacerbated by twisting the torso suggesting musculoskeletal or neuropathic etiology.
Vital Signs:
Vital Signs
Temp Pulse Resp BP Pulse Ox
98.7 F 139 20 112/95 99
09/10/23 07:40 09/10/23 09:30 09/10/23 07:40 09/10/23 09:30 09/10/23 08:22
Physical Exam
Constitutional: No acute distress and Comfortable
EENT: Moist mucous membranes
Cardiovascular: Pedal edema is absent, JVD pressure is normal
Respiratory: Respiratory effort normal and Lungs clear
GI: Soft, Distention absent and Flat no palpable organomegaly
Neuro/Psych: AO x 3
Lab Results:
Laboratory Data
WBC 7.9 10^3/uL (4.8-10.8) 09/10/23 03:39
Hgb 15.5 g/dL (13.0-18.0) 09/10/23 03:39
Plt Count 106 10^3/uL (130-400) L D 09/10/23 03:39
APTT Cancelled 09/09/23 14:15
eGFR > 60.00 09/10/23 03:39
--- NOTE | 2023-09-10 13:01 | W.PN.HOSP.TC ---
Today's Communication/Plan
-
Monitor vital signs and see plan
Continue with Eliquis
Metoprolol increased to 100 mg twice daily
Hopeful discharge tomorrow once heart rate improves
Monitor platelets
Assessment / Plan
Assessment / Plan
63 y/o male without significant past medical history who presented with chest and abdominal pain.�Patient reported he has been experiencing left sided chest discomfort intermittently for a while.� Pain seemed to be worse when he lays on his left.�
Over the weekend he developed lower abdominal pain. He reports associated nausea, and constipation. He reports waking up frequently the past two nights and admits to urinary frequency.� He denies fevers, sweats or chills.
A/P:
# New diagnosis of Atrial Fibrillation with resolved Rapid Ventricular Response, unknown duration of Afib
Was on IV Cardizem, now transition to p.o. metoprolol,increased to 100 mg twice daily
Anticoagulation for A-fib and possible renal infarct.� Initially IV heparin was held due to thrombocytopenia however now been evaluated by hematology who is okay with Eliquis. No plans for any intervention by cardiology so started Eliquis 5 mg
twice daily
Echo 09/08 with EF 45 to 50%
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 No plans for cardioversion per cardiology
# Low-grade fever
likely 2/2 Renal infarct
UA is neg for UTI
DC further eval
Hyponatremia
resolved
Thrombocytopenia
Platelet now improving, was 112 on admission on 09/07.
Per previous record in 2011 platelets were 118 suspect some chronicity
Hematology evaluated. Does not think this is related to heparin. HIT panel pending. hematology rec ok for eliquis
# Suspect renal insufficiency
Now improved
Observe off further IVF
# Left Renal Masses, felt likely renal infarct in setting of A Fib
Uro on board , recc treatment of A fib. Pt can follow up outpt for MRI after discharge
DVT proph:eliquis
Code Status: Full Code
General: Well Developed, Well Nourished, No Apparent Distress
HEENT: Normocephalic, Atraumatic
Respiratory: Clear to Auscultation and Non Labored Respirations
Cardiac: irregular Rhythm and S1/S2
GI: Soft, LLQ mild tender, Nondistended
Neuro: Awake, Alert, Oriented and AO x 3
Psych: Calm and Intact Judgement/Insight
Anticipated Discharge: Within 24 hours
Subjective/Interval History
-
Date of Service: September 10, 2023
denies pain
Objective Data
-
Labs:
Laboratory Results
09/10/23
03:39
WBC 7.9
Hgb 15.5
Hct 42.8
Plt Count 106 L D
Sodium 136
Potassium 3.6
Chloride 101
Carbon Dioxide 24
BUN 19
Creatinine 0.9
Glucose 94
Calcium 9.0
Vital Signs:
Vital Signs
Temp Pulse Resp BP Pulse Ox
97.5 F 132 20 112/95 96
09/10/23 11:55 09/10/23 10:45 09/10/23 11:55 09/10/23 09:30 09/10/23 11:55
I&O
09/09/23 09/10/23 09/11/23
06:59 06:59 06:59
Intake Total 1036 / 1036 870 / 870
Output Total 600 / 600 1350 / 1350
Balance 436 / 436 -480 / -480
[2023-09-10] MEDS: ZOSYN IV (15:45)
--- NOTE | 2023-09-10 19:16 | PTCARENOTE ---
Toprol increased today as ordered. Pt remains in uncontrolled atrial fib at a low rate of 110 but mainly 130-140 with frequent bursts to 170. Pt asymptomatic. Dr. Watkins aware. Pt with a better appetite today, one liquid brown stool which was
negative for CDiff. Antibiotics discontinued.
[2023-09-10] MEDS: TOPROL XL 100 MG PO (19:40)
--- NOTE | 2023-09-10 21:40 | PTCARENOTE ---
Pt rec'd at change of shift lying in bed. Heart rate 120-150's afib. Dr Watkins made aware via dayshift RN at change of shift. PM dose of metoprolol 100 mg given.
[2023-09-11] VITALS (7 sets, daily range): BP systolic 109–128; BP diastolic 84–109; BMI 29.0
[2023-09-11 06:35] LABS: % Basophils 0.7 % (0-2); % Eosinophils 0.5 % (0-6); % Immature Granulocytes 0.4 % (0-0.5); % Lymphocytes 23.5 % (20.5-51.1); % Neutrophils 63.9 % (42.2-75.2); Absolute Basophils 0.1 10^3/uL (0-0.2); Absolute Lymphocytes 1.7 10^3/uL (1.2-3.4); Absolute Monocytes 0.8 10^3/uL (0.1-0.6); Absolute Neutrophils 4.7 10^3/uL (1.4-6.5); Hematocrit 45.3 % (39.0-52.0); Hemoglobin 16.1 g/dL (13.0-18.0); Mean Corp Hgb Conc. 35.5 g/dL (33.0-37.0); Mean Corpuscular Hgb 30.8 pg (27.0-31.0); Mean Corpuscular Volume 86.6 fL (80.0-94.0); Mean Platelet Volume 12.4 fL (7.4-10.4); Nucleated Red Blood Cells % 0 % (-); Platelet Count 110 10^3/uL (130-400); Red Blood Cell Count 5.23 10^6/uL (4.70-6.10); Red Cell Dist. Width 11.9 % (11.5-14.5); White Blood Cell Count 7.4 10^3/uL (4.8-10.8)
[2023-09-11 06:58] LABS: Blood Urea Nitrogen 26 mg/dl (9-20); Calcium 8.7 mg/dl (8.4-10.2); Carbon Dioxide 28 mmol/L (22-30); Chloride 104 mmol/L (98-107); Estimated Creatinine Clearance 98 ml/min; Glucose 102 mg/dl (70-99); Potassium 4.2 mmol/L (3.5-5.1); Sodium 136 mmol/L (135-145); eGFR > 60.00
[2023-09-11] MEDS: COLACE PO (09:06)
[2023-09-11] MEDS: ELIQUIS 5 MG PO ×2 (09:06→20:01)
[2023-09-11] MEDS: MIRALAX PO (09:06)
[2023-09-11] MEDS: TOPROL XL 100 MG PO ×2 (09:07→20:03)
--- NOTE | 2023-09-11 11:57 | CM ---
Reviewed chart. Met with Mr. Nance to review discharge plans. He states he feels bout the same. Prior to admission he resides with his son in a two story home without any steps to enter. He has a full flight of syeps to get to bedroom/full
bathroom. He has a powder room on the first floor. Prior to admission he was independent with ambulation and adls. He does not have any DME in the home. Will need to see his current functional level to see if he will have any skilled care needs.
He has a prescription plan and uses [email or web address]. His co-pay for Eliquis 5 mg po bid is $50.00 a month. He has commercial insurance and can use the $10.00 co-pay card. He is agreeable to the co-pay. Medical work-up in progress. The discharge
plan is to retrun home with his son when medically stable.
--- NOTE | 2023-09-11 13:18 | W.PN.HOSP.TC ---
Today's Communication/Plan
-
Monitor vital signs
see plan
EP to see today
Continue with metoprolol
Continue Eliquis
Assessment / Plan
Assessment / Plan
63 y/o male without significant past medical history who presented with chest and abdominal pain.�Patient reported he has been experiencing left sided chest discomfort intermittently for a while.� Pain seemed to be worse when he lays on his left.�
Over the weekend he developed lower abdominal pain. He reports associated nausea, and constipation. He reports waking up frequently the past two nights and admits to urinary frequency.� He denies fevers, sweats or chills.
A/P:
# New diagnosis of Atrial Fibrillation with resolved Rapid Ventricular Response, unknown duration of Afib
Was on IV Cardizem, now transition to p.o. metoprolol,increased to 100 mg twice daily. still HR uncontrolled. Plan to be seen by EP today
Anticoagulation for A-fib and possible renal infarct.� Initially IV heparin was held due to thrombocytopenia however now been evaluated by hematology who is okay with Eliquis. No plans for any intervention by cardiology so started Eliquis 5 mg
twice daily
Echo 09/08 with EF 45 to 50%
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 No plans for cardioversion per cardiology
# Low-grade fever
likely 2/2 Renal infarct
UA is neg for UTI
DC further abx
lidocaine patch
Hyponatremia
resolved
Thrombocytopenia
Platelet now improving, was 112 on admission on 09/07.
Per previous record in 2011 platelets were 118 suspect some chronicity
Hematology evaluated. Does not think this is related to heparin. HIT panel pending. hematology rec ok for eliquis
# Suspect renal insufficiency
Now improved
Observe off further IVF
# Left Renal Masses, felt likely renal infarct in setting of A Fib
Uro on board , recc treatment of A fib. Pt can follow up outpt for MRI after discharge
DVT proph:eliquis
Code Status: Full Code
General: Well Developed, Well Nourished, No Apparent Distress
HEENT: Normocephalic, Atraumatic
Respiratory: Clear to Auscultation and Non Labored Respirations
Cardiac: irregular Rhythm and S1/S2
GI: Soft, LLQ mild tender, Nondistended
Neuro: Awake, Alert, Oriented and AO x 3
Psych: Calm and Intact Judgement/Insight
Anticipated Discharge: Within 24 hours
Subjective/Interval History
-
Date of Service: September 11, 2023
denies nausea
Objective Data
-
Labs:
Laboratory Results
09/11/23
06:20
WBC 7.4
Hgb 16.1
Hct 45.3
Plt Count 110 L
Sodium 136
Potassium 4.2
Chloride 104
Carbon Dioxide 28
BUN 26 H
Creatinine 0.9
Glucose 102 H
Calcium 8.7
Vital Signs:
Vital Signs
Temp Pulse Resp BP Pulse Ox
98.3 F 148 20 109/96 97
09/11/23 11:30 09/11/23 11:37 09/11/23 11:30 09/11/23 11:37 09/11/23 11:30
I&O
09/10/23 09/11/23 09/12/23
06:59 06:59 06:59
Intake Total 870 / 870 640 / 640 120 / 120
Output Total 1350 / 1350
Balance -480 / -480 640 / 640 120 / 120
[2023-09-11] MEDS: LIDOCAINE 4% PATCH 1 PATCH TOPICAL (14:27)
--- NOTE | 2023-09-11 14:39 | W.PN.CD ---
Today's Communication / Plan
-
Continue metoprolol ER 100 bid
rate so fast still => add Dilt 60 q6 (convert to Cardizem CD at discharge)
Continue Eliquis
Since we plan MARY/DCCV in 4 weeks we dont need perfect rate control
He knows high risk of AFib recurrence and he knows about ablation for AFib (relative had tachy-myopathy and successful AFib ablation)
Impression / Plan
-
New Afib, duration unknown, pattern unknown
- Rate: still elevated. Increase Toprol XL to 100mg bid. Rate stil fast => add DILTiazem
- Rhythm: still in AFib. No plans for early cardioversion, likely after 4 weeks of OAT with MARY at that time given suspected renal infarct
- Anticoagulation: eliquis 5mg bid
- [id number] is at least 1 (age1) and likely at least 3 (urology suspects renal infarct, that could change based on MRI planned for 8 weeks from now
Thrombocytopenia
- Plt 118 in 04/2012
- plt 112 on admit, then down to 79
- heparin stopped, and plt up to 106 and now 110
- hematology has been consulted: HIT panel sent, but low suspicion for HIT
- OK for eliquis
Chest pain
- Several months of positional but not exertional very brief chest pain
- Does not seem ischemic/ACS
-eventual stress test as outpatient
Structural heart disease: mild cardiomyopathy
- Echo 09/08/2023: LVEF 45-50%, RV enlarged, mod LAE, AoV sclerosis
- EKG 10/2021 with LAD and LAE
- CXR this admit with cardiomegaly
- pBNP elevated but no HF on CXR or by symptoms. Elevated pBNP can be seen in AFib but this is higher than just AFib I suspect
- Can treat for a tachy-myopathy and see if CXR and echo improve: currently on Toprol XL
Left renal masses
- etiology unclear, Urology believes infarction. MRI in 8 weeks planned
LLQ pain, unknown etiology: ? renal infarct
ELVER, resolved with intravenous fluids
Physical Exam
Vital Signs/Labs
Vital Signs
Temp Pulse Resp BP Pulse Ox
98.3 F 148 20 109/96 97
09/11/23 11:30 09/11/23 11:37 09/11/23 11:30 09/11/23 11:37 09/11/23 11:30
09/10/23 09/11/23 09/12/23
06:59 06:59 06:59
Actual Weight 105.1 kg 105.3 kg
09/11/23 06:20
09/11/23 06:20
APTT Cancelled 09/09/23 14:15
Magnesium 2.0 mg/dl (1.6-2.3) 09/09/23 07:34
09/07/23
18:13
[id number] Pept 7690
Physical Exam
Constitutional: No acute distress
EENT: Anicteric
Cardiovascular: Rhythm/rate is irregular and S1S2 is normal
Respiratory: Respiratory effort normal and Lungs clear to auscul.
GI: Soft and Distention absent
Neuro/Psych: AO x 3
Data Reviewed
-
Date of Service: September 11, 2023
[2023-09-11] MEDS: CARDIZEM 30 MG PO ×2 (15:19→22:53)
[2023-09-11] MEDS: CARDIZEM 60 MG PO (17:44)
--- NOTE | 2023-09-11 19:23 | PTCARENOTE ---
Pt in uncontrolled atrial fib up to 170's today. Pt seen by , diltiazem given in afternoon, heart rate to 80-100 by early evening. notified, per pt may need reduced dose, will watch closely.
[2023-09-11] MEDS: COLACE 100 MG PO (20:01)
[2023-09-11] MEDS: CARDIZEM PO (22:35)
--- NOTE | 2023-09-11 23:10 | PTCARENOTE ---
Pt received start of shift, HR A-fib/flutter 70s-110s. Pt educated on purpose of cardizem and metoprolol for rate control. Pt states no questions at this time. Pt states they have been feeling 'so tired' since onset of afib, expresses hope that rate
control may help with energy. Pt denies any abdominal pain, CP, or SOB at this time. Pt informed to notify RN if any changes, call burgos within reach.
At change of shift, Dr. Dumont [facility] about possibility of lowering Cardizem 60mg PO QID to 30mg PO QID if rate control gets better. Pt HR 70s-100s without activity. TT CBC bone grinder Dr. Van, telephone order to decrease Cardizem to
30mg PO QID starting at 2200 dose. Pt informed why dose was lowered, pt states understanding.
[2023-09-12] VITALS (7 sets, daily range): BP systolic 97–135; BP diastolic 54–98; BMI 29.1
[2023-09-12 04:03] LABS: % Basophils 0.5 % (0-2); % Eosinophils 0.5 % (0-6); % Immature Granulocytes 0.4 % (0-0.5); % Lymphocytes 28.2 % (20.5-51.1); % Neutrophils 58.4 % (42.2-75.2); Absolute Lymphocytes 2.1 10^3/uL (1.2-3.4); Absolute Monocytes 0.9 10^3/uL (0.1-0.6); Absolute Neutrophils 4.3 10^3/uL (1.4-6.5); Hematocrit 44.8 % (39.0-52.0); Hemoglobin 16.2 g/dL (13.0-18.0); Mean Corp Hgb Conc. 36.2 g/dL (33.0-37.0); Mean Corpuscular Hgb 31.5 pg (27.0-31.0); Nucleated Red Blood Cells % 0 % (-); Platelet Count 116 10^3/uL (130-400); Red Blood Cell Count 5.15 10^6/uL (4.70-6.10); Red Cell Dist. Width 11.9 % (11.5-14.5); White Blood Cell Count 7.4 10^3/uL (4.8-10.8)
[2023-09-12 04:30] LABS: Blood Urea Nitrogen 21 mg/dl (9-20); Calcium 8.8 mg/dl (8.4-10.2); Carbon Dioxide 23 mmol/L (22-30); Chloride 105 mmol/L (98-107); Estimated Creatinine Clearance 110 ml/min; Glucose 101 mg/dl (70-99); Sodium 135 mmol/L (135-145); eGFR > 60.00
--- NOTE | 2023-09-12 08:33 | W.PN.CD ---
Today's Communication / Plan
-
- dilt 60 q6 today
- hopefuly to switch to 240 mg tomorrow for hopeful d/c
Impression / Plan
-
New Afib, duration unknown, pattern unknown
- Rate: still elevated. Increase Toprol XL to 100mg bid. Rate stil fast => add DILTiazem
- Rhythm: still in AFib. No plans for early cardioversion, likely after 4 weeks of OAT with MARY at that time given suspected renal infarct
- Anticoagulation: eliquis 5mg bid
- [id number] is at least 1 (age1) and likely at least 3 (urology suspects renal infarct, that could change based on MRI planned for 8 weeks from now
- continue dilt 60 q6 today, plan on increasing if HRs remain elevated, hopeful d/c tomorrow on 240 mg ER
Thrombocytopenia
- Plt 118 in 04/2012
- plt 112 on admit, then down to 79
- heparin stopped, and plt up to 106 and now 110
- hematology has been consulted: HIT panel sent, but low suspicion for HIT
- OK for eliquis
Chest pain
- Several months of positional but not exertional very brief chest pain
- Does not seem ischemic/ACS
-eventual stress test as outpatient
Structural heart disease: mild cardiomyopathy
- Echo 09/08/2023: LVEF 45-50%, RV enlarged, mod LAE, AoV sclerosis
- EKG 10/2021 with LAD and LAE
- CXR this admit with cardiomegaly
- pBNP elevated but no HF on CXR or by symptoms. Elevated pBNP can be seen in AFib but this is higher than just AFib I suspect
- Can treat for a tachy-myopathy and see if CXR and echo improve: currently on Toprol XL
Left renal masses
- etiology unclear, Urology believes infarction. MRI in 8 weeks planned
LLQ pain, unknown etiology: ? renal infarct
ELVER, resolved with intravenous fluids
Subjective: he is anxious about HRs
Physical Exam
Vital Signs/Labs
Vital Signs
Temp Pulse Resp BP Pulse Ox
97.8 F 103 18 135/98 95
09/12/23 07:42 09/12/23 05:00 09/12/23 07:42 09/12/23 02:47 09/12/23 07:42
09/11/23 09/12/23 09/13/23
06:59 06:59 06:59
Actual Weight 232 lb 2.348 oz 232 lb 9.403 oz
09/12/23 03:40
09/12/23 03:40
APTT Cancelled 09/09/23 14:15
Magnesium 2.0 mg/dl (1.6-2.3) 09/09/23 07:34
09/07/23
18:13
[id number]-[id number] Pept 7690
Physical Exam
Constitutional: No acute distress
EENT: Anicteric
Cardiovascular: Rhythm/rate is irregular and S1S2 is normal
Respiratory: Respiratory effort normal and Lungs clear to auscul.
GI: Soft
Neuro/Psych: AO x 3
Data Reviewed
-
Date of Service: September 12, 2023
EKG: Tracing Personally Visualized and interpreted
Labs: Labs Reviewed by me
[2023-09-12] MEDS: MIRALAX PO (08:57)
[2023-09-12] MEDS: COLACE PO ×2 (08:57→21:05)
[2023-09-12] MEDS: CARDIZEM 60 MG PO ×4 (09:02→22:45)
[2023-09-12] MEDS: ELIQUIS 5 MG PO ×2 (09:03→19:39)
[2023-09-12] MEDS: TOPROL XL 100 MG PO ×2 (09:03→19:40)
[2023-09-12] MEDS: LIDOCAINE 4% PATCH 1 PATCH TOPICAL (09:03)
--- NOTE | 2023-09-12 09:30 | PTCARENOTE ---
Pt states he is feeling tired today. He says his energy level has been low since he came to the hospital. HR 120's in A-fib. Bp 133/91.
--- NOTE | 2023-09-12 12:56 | W.PN.HOSP.TC ---
Today's Communication/Plan
-
Monitor vitals
see Plan
Continue with metoprolol, diltiazem
Hopeful DC tomorrow once heart rate improves
Assessment / Plan
Assessment / Plan
63 y/o male without significant past medical history who presented with chest and abdominal pain.�Patient reported he has been experiencing left sided chest discomfort intermittently for a while.� Pain seemed to be worse when he lays on his left.�
Over the weekend he developed lower abdominal pain. He reports associated nausea, and constipation. He reports waking up frequently the past two nights and admits to urinary frequency.� He denies fevers, sweats or chills.
A/P:
# New diagnosis of Atrial Fibrillation with resolved Rapid Ventricular Response, unknown duration of Afib
Was on IV Cardizem, now transition to p.o. metoprolol,increased to 100 mg twice daily. still HR uncontrolled. Started on 60 mg every 6hr diltiazem
Anticoagulation for A-fib and possible renal infarct.� Initially IV heparin was held due to thrombocytopenia however now been evaluated by hematology who is okay with Eliquis. No plans for any intervention by cardiology so started Eliquis 5 mg
twice daily
Echo 09/08 with EF 45 to 50%
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 No plans for cardioversion per cardiology
# Low-grade fever
likely 2/2 Renal infarct
UA is neg for UTI
DC further abx
lidocaine patch
Hyponatremia
resolved
Thrombocytopenia
Platelet now improving, was 112 on admission on 09/07.
Per previous record in 2011 platelets were 118 suspect some chronicity
Hematology evaluated. Does not think this is related to heparin. HIT panel pending. hematology rec ok for eliquis
# Suspect renal insufficiency
Now improved
Observe off further IVF
# Left Renal Masses, felt likely renal infarct in setting of A Fib
Uro on board , recc treatment of A fib. Pt can follow up outpt for MRI after discharge
DVT proph:eliquis
Code Status: Full Code
General: Well Developed, Well Nourished, No Apparent Distress
HEENT: Normocephalic, Atraumatic
Respiratory: Clear to Auscultation and Non Labored Respirations
Cardiac: irregular Rhythm and S1/S2
GI: Soft, LLQ mild tender, Nondistended
Neuro: Awake, Alert, Oriented and AO x 3
Psych: Calm and Intact Judgement/Insight
Anticipated Discharge: Within 24 hours
Subjective/Interval History
-
Date of Service: September 12, 2023
Denies nausea
Objective Data
-
Labs:
Laboratory Results
09/12/23
03:40
WBC 7.4
Hgb 16.2
Hct 44.8
Plt Count 116 L
Sodium 135
Potassium 4.0
Chloride 105
Carbon Dioxide 23
BUN 21 H
Creatinine 0.8
Glucose 101 H
Calcium 8.8
Vital Signs:
Vital Signs
Temp Pulse Resp BP Pulse Ox
97.7 F 105 16 112/81 95
09/12/23 12:49 09/12/23 12:30 09/12/23 12:49 09/12/23 11:33 09/12/23 07:42
I&O
09/11/23 09/12/23 09/13/23
06:59 06:59 06:59
Intake Total 640 / 640 840 / 840
Balance 640 / 640 840 / 840
--- NOTE | 2023-09-12 16:58 | W.PN.UPDATE ---
Update Note
Progress Note Update
Platelet count continues to improve.
HIT ESTELLE negative.
No evidence of HIT.
Eliquis as planned.
--- NOTE | 2023-09-12 23:22 | PTCARENOTE ---
Pt received at start of shift, HR A-flutter/fib 60s-120. Pt in bed. Pt states no questions regarding plan of care at this time. Pt denies any CP, lightheadedness/dizziness, or SOB at this time. Informed to notify RN if any changes, call burgos within
reach.
[2023-09-13 02:10] VITALS: BP 116/80
[2023-09-13] MEDS: ANESTHETIC LOZENGE 1 LOZENGE PO (02:36)
[2023-09-13] MEDS: BENADRYL 25 MG PO (02:36)
[2023-09-13 03:22] LABS: % Basophils 0.6 % (0-2); % Eosinophils 1.1 % (0-6); % Immature Granulocytes 0.5 % (0-0.5); % Lymphocytes 25.7 % (20.5-51.1); % Neutrophils 62.1 % (42.2-75.2); Absolute Basophils 0.1 10^3/uL (0-0.2); Absolute Eosinophils 0.1 10^3/uL (0-0.7); Absolute Lymphocytes 2.1 10^3/uL (1.2-3.4); Absolute Monocytes 0.8 10^3/uL (0.1-0.6); Absolute Neutrophils 5.1 10^3/uL (1.4-6.5); Hematocrit 44.8 % (39.0-52.0); Mean Corp Hgb Conc. 35.7 g/dL (33.0-37.0); Mean Corpuscular Hgb 30.8 pg (27.0-31.0); Mean Corpuscular Volume 86.3 fL (80.0-94.0); Mean Platelet Volume 12.7 fL (7.4-10.4); Nucleated Red Blood Cells % 0 % (-); Platelet Count 132 10^3/uL (130-400); Red Blood Cell Count 5.19 10^6/uL (4.70-6.10); Red Cell Dist. Width 11.9 % (11.5-14.5); White Blood Cell Count 8.1 10^3/uL (4.8-10.8)
[2023-09-13 03:40] LABS: Blood Urea Nitrogen 23 mg/dl (9-20); Calcium 9.2 mg/dl (8.4-10.2); Carbon Dioxide 25 mmol/L (22-30); Chloride 102 mmol/L (98-107); Estimated Creatinine Clearance 98 ml/min; Glucose 109 mg/dl (70-99); Potassium 4.1 mmol/L (3.5-5.1); Sodium 137 mmol/L (135-145); eGFR > 60.00
--- NOTE | 2023-09-13 03:53 | PTCARENOTE ---
Pt used call burgos to inform RN that 'half my tongue is raw'. L side of pt's tongue appears smooth bright red. No swelling or other inflammation noted in oral area. Pt denies a decreased ability to swallow or that his airway is constricted/it is
harder to breathe. Pt states he was having painful swallowing for the past hour 'that felt like I was drinking sand' when swallowing just spit. When drinking water, pt states it's a similar feeling to as if he had 'burnt my tongue on something hot'.
Pt denies having burnt tongue on hot food/drink earlier in the day. 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 25mg Benadryl and PRN Cepacol lozenge ordered and administered. Mycostatin QID also ordered. Pt informed to notify RN if discomfort worsens, any difficulty
breathing, itching, or feelings of swelling in mouth/throat. Call burgos within reach
--- NOTE | 2023-09-13 04:55 | W.PN.UPDATE ---
Update Note
Progress Note Update
RN reported to [facility] F[facility] that patient c/o of 'burning sensation' at the left side of the tongue, along with sorethroat, Also notes difference in the color on the left side of the tongue. patient seen and evaluated, noted patches on tongue, and the left
side of the tongue has glossy look to it with out any patches, pink to red noted at that area, no other symptoms, Denies throat swelling, itchiness, without any other symptoms.
Advise patient to continue to drink cold water, will order Cepacol PO, Benadryl PO and nystatin swish swallow, will order vitamin B12.
[2023-09-13 06:04] LABS: Vitamin B12 611 pg/ml (239-931)
[2023-09-13 07:44] VITALS: BP 120/93
[2023-09-13] MEDS: MIRALAX PO (08:22)
[2023-09-13] MEDS: COLACE PO ×2 (08:22→20:21)
[2023-09-13] MEDS: ELIQUIS 5 MG PO ×2 (08:23→20:17)
[2023-09-13] MEDS: TOPROL XL 100 MG PO ×2 (08:23→20:17)
[2023-09-13] MEDS: LIDOCAINE 4% PATCH 1 PATCH TOPICAL (08:24)
[2023-09-13] MEDS: CARDIZEM CD 240 MG PO (08:24)
[2023-09-13] MEDS: MYCOSTATIN ORAL SUSPENSION 5 ML PO ×4 (08:27→22:18)
--- NOTE | 2023-09-13 09:54 | W.PN.CD ---
Today's Communication / Plan
-
Cont dilt 240, possibly increase tomorrow to 360
Impression / Plan
-
New Afib, duration unknown, pattern unknown
- Rate: still elevated. Increase Toprol XL to 100mg bid. Rate stil fast
- Rhythm: still in AFib. No plans for early cardioversion, likely after 4 weeks of OAT with MARY at that time given suspected renal infarct
- Anticoagulation: eliquis 5mg bid
- [id number] is at least 1 (age1) and likely at least 3 (urology suspects renal infarct, that could change based on MRI planned for 8 weeks from now
- dilt 240 mg ER
Thrombocytopenia
- Plt 118 in 04/2012
- plt 112 on admit, then down to 79
- heparin stopped, and plt up to 106 and now 110
- hematology has been consulted: HIT panel sent, but low suspicion for HIT
- OK for eliquis
Chest pain
- Several months of positional but not exertional very brief chest pain
- Does not seem ischemic/ACS
-eventual stress test as outpatient
Structural heart disease: mild cardiomyopathy
- Echo 09/08/2023: LVEF 45-50%, RV enlarged, mod LAE, AoV sclerosis
- EKG 10/2021 with LAD and LAE
- CXR this admit with cardiomegaly
- pBNP elevated but no HF on CXR or by symptoms. Elevated pBNP can be seen in AFib but this is higher than just AFib I suspect
- Can treat for a tachy-myopathy and see if CXR and echo improve: currently on Toprol XL
Left renal masses
- etiology unclear, Urology believes infarction. MRI in 8 weeks planned
LLQ pain, unknown etiology: ? renal infarct
ELVER, resolved with intravenous fluids
Subjective: he is anxious about HRs
Physical Exam
Vital Signs/Labs
Vital Signs
Temp Pulse Resp BP Pulse Ox
97.8 F 122 20 120/93 94
09/13/23 07:42 09/13/23 09:30 09/13/23 07:42 09/13/23 07:44 09/13/23 07:44
09/12/23 09/13/23 09/14/23
06:59 06:59 06:59
Actual Weight 232 lb 9.403 oz
09/13/23 02:29
09/13/23 02:29
APTT Cancelled 09/09/23 14:15
Magnesium 2.0 mg/dl (1.6-2.3) 09/09/23 07:34
09/07/23
18:13
[id number] Pept [id number]
Physical Exam
Constitutional: No acute distress
EENT: Anicteric
Cardiovascular: Pedal edema is absent and Rhythm/rate is irregular
Respiratory: Respiratory effort normal and Lungs clear to auscul.
GI: Soft
Neuro/Psych: AO x 3
Other: Skin (warm and diaphoretic )
Data Reviewed
-
Date of Service: September 13, 2023
EKG: Tracing Personally Visualized and interpreted
Labs: Labs Reviewed by me
[2023-09-13 11:22] VITALS: BP 111/77
--- NOTE | 2023-09-13 13:37 | W.PN.HOSP.TC ---
Today's Communication/Plan
-
monitor vitals
see plan
cw metoprolol,diltiazem
HR still not controlled
cardiology following
Assessment / Plan
Assessment / Plan
63 y/o male without significant past medical history who presented with chest and abdominal pain.�Patient reported he has been experiencing left sided chest discomfort intermittently for a while.� Pain seemed to be worse when he lays on his left.�
Over the weekend he developed lower abdominal pain. He reports associated nausea, and constipation. He reports waking up frequently the past two nights and admits to urinary frequency.� He denies fevers, sweats or chills.
A/P:
# New diagnosis of Atrial Fibrillation with resolved Rapid Ventricular Response, unknown duration of Afib
Was on IV Cardizem, now transition to p.o. metoprolol,increased to 100 mg twice daily. still HR uncontrolled. Started on 60 mg every 6hr diltiazem; now changed to long acting 240mg; if not controlled then would likely need 360 mg
Anticoagulation for A-fib and possible renal infarct.� Initially IV heparin was held due to thrombocytopenia however now been evaluated by hematology who is okay with Eliquis. No plans for any intervention by cardiology so started Eliquis 5 mg
twice daily
Echo 09/08 with EF 45 to 50%
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 No plans for cardioversion per cardiology
# Low-grade fever
likely 2/2 Renal infarct
UA is neg for UTI
DC further abx
lidocaine patch
Hyponatremia
resolved
Thrombocytopenia
Platelet now improving, was 112 on admission on 09/07.
Per previous record in 2011 platelets were 118 suspect some chronicity
Hematology evaluated. Does not think this is related to heparin. HIT panel pending. hematology rec ok for eliquis
left tongue burning with some ulceration
improving
# Suspect renal insufficiency
Now improved
# Left Renal Masses, felt likely renal infarct in setting of A Fib
Uro on board , [facility] treatment of A fib. Pt can follow up outpt for MRI after discharge
DVT proph:eliquis
Code Status: Full Code
General: Well Developed, Well Nourished, No Apparent Distress
HEENT: Normocephalic, Atraumatic
Respiratory: Clear to Auscultation and Non Labored Respirations
Cardiac: irregular Rhythm and S1/S2
GI: Soft, LLQ mild tender, Nondistended
Neuro: Awake, Alert, Oriented and AO x 3
Psych: Calm and Intact Judgement/Insight
Anticipated Discharge: Within 24 hours
Subjective/Interval History
-
Date of Service: September 13, 2023
denies nausea
Objective Data
-
Labs:
Laboratory Results
09/13/23
02:29
WBC 8.1
Hgb 16.0
Hct 44.8
Plt Count 132
Sodium 137
Potassium 4.1
Chloride 102
Carbon Dioxide 25
BUN 23 H
Creatinine 0.9
Glucose 109 H
Calcium 9.2
Vital Signs:
Vital Signs
Temp Pulse Resp BP Pulse Ox
98.7 F 122 20 120/93 98
09/13/23 11:20 09/13/23 09:30 09/13/23 11:20 09/13/23 07:44 09/13/23 11:20
I&O
09/12/23 09/13/23 09/14/23
06:59 06:59 06:59
Intake Total 840 / 840 480 / 480
Balance 840 / 840 480 / 480
[2023-09-13 15:59] VITALS: BP 108/76
[2023-09-13 20:19] VITALS: BP 109/78
--- NOTE | 2023-09-13 21:42 | PTCARENOTE ---
Pt received at start of shift, HR A-fib/flutter 90s-140s. Pt in bed,,pt states he felt very tired all day and mostly slept besides when doctors or nurses came in the room. Pt appears in high spirits despite having to stay in hospital longer. Pt
states his tongue no longer has any burning sensation or discomfort. Pt's tongue still smooth red on L side. Pt denies any CP, SOB, or lightheadedness/dizziness at this time. Informed to notify RN if any changes, call burgos within reach.
[2023-09-13 22:21] VITALS: BP 118/78
[2023-09-14] VITALS (8 sets, daily range): BP systolic 103–156; BP diastolic 80–104; BMI 29.0
[2023-09-14 03:36] LABS: % Basophils 0.8 % (0-2); % Eosinophils 0.9 % (0-6); % Immature Granulocytes 0.5 % (0-0.5); % Lymphocytes 30.8 % (20.5-51.1); % Monocytes 10.2 % (1.7-9.3); % Neutrophils 56.8 % (42.2-75.2); Absolute Basophils 0.1 10^3/uL (0-0.2); Absolute Eosinophils 0.1 10^3/uL (0-0.7); Absolute Lymphocytes 2.7 10^3/uL (1.2-3.4); Absolute Monocytes 0.9 10^3/uL (0.1-0.6); Hematocrit 46.4 % (39.0-52.0); Hemoglobin 16.4 g/dL (13.0-18.0); Mean Corp Hgb Conc. 35.3 g/dL (33.0-37.0); Mean Corpuscular Hgb 30.9 pg (27.0-31.0); Mean Corpuscular Volume 87.5 fL (80.0-94.0); Mean Platelet Volume 13.1 fL (7.4-10.4); Nucleated Red Blood Cells % 0 % (-); Platelet Count 166 10^3/uL (130-400); Red Cell Dist. Width 12.2 % (11.5-14.5); White Blood Cell Count 8.8 10^3/uL (4.8-10.8)
[2023-09-14 03:45] LABS: Blood Urea Nitrogen 28 mg/dl (9-20); Calcium 9.3 mg/dl (8.4-10.2); Carbon Dioxide 29 mmol/L (22-30); Chloride 102 mmol/L (98-107); Estimated Creatinine Clearance 98 ml/min; Glucose 99 mg/dl (70-99); Potassium 4.1 mmol/L (3.5-5.1); Sodium 140 mmol/L (135-145); eGFR > 60.00
[2023-09-14] MEDS: CARDIZEM CD 240 MG PO (07:09)
--- NOTE | 2023-09-14 08:02 | W.PN.CD ---
Today's Communication / Plan
-
- Start Digoxin 125 mcg PO QD.
- Digoxin 250 mg IV x 1.
- lisinopril 2.5 mg QD
Impression / Plan
-
New Afib, duration unknown, persistent
- Rate: still elevated. On Toprol XL to 100mg bid and Diltiazem 240 mg qd.
- Rate still fast
- will add Digoxin shana with lower EF.
- Rhythm: still in AFib. No plans for early cardioversion, likely after 4-6 weeks of OAT with MARY at that time given suspected renal infarct
- Anticoagulation: eliquis 5mg bid
- [id number] is at least 1 (age 1) and likely at least 3 (urology suspects renal infarct, that could change based on MRI planned for 8 weeks from now
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
Thrombocytopenia
- HIT is negative.
- Platelets are recovered
- OK for eliquis
Chest pain
- Several months of positional but not exertional very brief chest pain
- Does not seem ischemic/ACS
-eventual stress test as outpatient
-Could be related to atrial fibrillation and RVR. Likely months duration.
acute on chronic heart failure
-Structural heart disease: mild cardiomyopathy
- Echo 09/08/2023: LVEF 45-50%, RV enlarged, mod LAE, AoV sclerosis
- EKG 10/2021 with LAD and LAE
- CXR this admit with cardiomegaly
- pBNP elevated - possible tachycardia induced cardiomyopathy and is potentially reversible
- Elevated pBNP can be seen in AFib but this is higher than just AFib I suspect
- currently on Toprol XL. will add lisinopril 2.5 mg QD
Left renal masses
- etiology unclear, Urology believes infarction. MRI in 8 weeks planned
LLQ pain, unknown etiology: ? renal infarct
ELVER, resolved with intravenous fluids
Subjective:
Feeling better but is anxious about all the medication he is getting. he is anxious about HRs
Physical Exam
Vital Signs/Labs
Vital Signs
Temp Pulse Resp BP Pulse Ox
98.3 F 106 16 115/87 94
09/14/23 02:24 09/14/23 07:45 09/14/23 02:24 09/14/23 07:23 09/14/23 07:23
09/13/23 09/14/23 09/15/23
06:59 06:59 06:59
Actual Weight 105.2 kg
09/14/23 02:28
09/14/23 02:28
APTT Cancelled 09/09/23 14:15
Magnesium 2.0 mg/dl (1.6-2.3) 09/09/23 07:34
09/07/23
18:13
[id number] Pept [id number]
Physical Exam
Constitutional: No acute distress and Comfortable
EENT: Anicteric and Moist mucous membranes
Cardiovascular: Pedal edema is absent, JVD pressure is normal, Rhythm/rate is irregular and Systolic murmur present
Respiratory: Respiratory effort normal, Crackles Absent and Rhonchi Absent
GI: Soft, Non tender and Normal bowel sounds
Neuro/Psych: Alert, Oriented, AO x 3 and Motor deficits absent
Data Reviewed
-
Date of Service: September 14, 2023
Medical Decision Making: Reviewed Test Results, Independent Historian Assessment and Review of Case with other Provider
EKG: Tracing Personally Visualized and interpreted
Echo: Report Reviewed by me
X-Ray/CT/US/MRI/NUC/PET: Report Reviewed by me
Labs: Labs Reviewed by me
Old Records: Reviewed
[2023-09-14] MEDS: ELIQUIS 5 MG PO ×2 (08:42→20:05)
[2023-09-14] MEDS: MYCOSTATIN ORAL SUSPENSION 5 ML PO ×4 (08:42→22:42)
[2023-09-14] MEDS: TOPROL XL 100 MG PO ×2 (08:43→20:05)
[2023-09-14] MEDS: MIRALAX PO (08:43)
[2023-09-14] MEDS: COLACE PO ×2 (08:43→20:06)
[2023-09-14] MEDS: LIDOCAINE 4% PATCH 1 PATCH TOPICAL (08:44)
[2023-09-14] MEDS: FLUSH (NSS) 2 FLUSH IV (08:45)
[2023-09-14] MEDS: LANOXIN 250 MCG IV (08:45)
--- NOTE | 2023-09-14 11:26 | PTCARENOTE ---
Received patient this morning resting in bed. Offers no complaints, stated he slept well. Given IV lanoxin as ordered this morning. Patient remains in AF however rate did terell down to 36, patient asymptomatic. Still in AF rate 50-60's. Notified
Naga will resume PO dose of laxonin tomorrow at noon.
[2023-09-14] MEDS: LANOXIN PO (11:32)
--- NOTE | 2023-09-14 11:47 | W.PN.HOSP.TC ---
Today's Communication/Plan
-
Monitor vital signs
see plan
A-fib still uncontrolled, currently on metoprolol and diltiazem. Digoxin added today
Cardiology following
Assessment / Plan
Assessment / Plan
63 y/o male without significant past medical history who presented with chest and abdominal pain.�Patient reported he has been experiencing left sided chest discomfort intermittently for a while.� Pain seemed to be worse when he lays on his left.�
Over the weekend he developed lower abdominal pain. He reports associated nausea, and constipation. He reports waking up frequently the past two nights and admits to urinary frequency.� He denies fevers, sweats or chills.
A/P:
# New diagnosis of Atrial Fibrillation with resolved Rapid Ventricular Response, unknown duration of Afib
Was on IV Cardizem, now transition to p.o. metoprolol,increased to 100 mg twice daily. still HR uncontrolled. Started on 60 mg every 6hr diltiazem; now changed to long acting 240mg; added digoxin 3/
Anticoagulation for A-fib and possible renal infarct.� Initially IV heparin was held due to thrombocytopenia however now been evaluated by hematology who is okay with Eliquis. No plans for any intervention by cardiology so started Eliquis 5 mg
twice daily
Echo 09/08 with EF 45 to 50%
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 No plans for cardioversion per cardiology
# Low-grade fever
likely 2/2 Renal infarct
UA is neg for UTI
DC further abx
lidocaine patch
Hyponatremia
resolved
Thrombocytopenia
Platelet now improving, was 112 on admission on 09/07.
Per previous record in 2011 platelets were 118 suspect some chronicity
Hematology evaluated. Does not think this is related to heparin. hematology rec ok for eliquis
left tongue burning with some ulceration
improving
# Suspect renal insufficiency
Now improved
# Left Renal Masses, felt likely renal infarct in setting of A Fib
Uro on board , recc treatment of A fib. Pt can follow up outpt for MRI after discharge
DVT proph:eliquis
Code Status: Full Code
General: Well Developed, Well Nourished, No Apparent Distress
HEENT: Normocephalic, Atraumatic
Respiratory: Clear to Auscultation and Non Labored Respirations
Cardiac: irregular Rhythm,tachycardia and S1/S2
GI: Soft, LLQ mild tender, Nondistended
Neuro: Awake, Alert, Oriented and AO x 3
Psych: Calm and Intact Judgement/Insight
Anticipated Discharge: Within 24 hours
Subjective/Interval History
-
Date of Service: September 14, 2023
deneis chest pain
Objective Data
-
Labs:
Laboratory Results
09/14/23
02:28
WBC 8.8
Hgb 16.4
Hct 46.4
Plt Count 166 D
Sodium 140
Potassium 4.1
Chloride 102
Carbon Dioxide 29
BUN 28 H
Creatinine 0.9
Glucose 99
Calcium 9.3
Vital Signs:
Vital Signs
Temp Pulse Resp BP Pulse Ox
97.6 F 50 18 115/87 94
09/14/23 07:00 09/14/23 11:32 09/14/23 07:00 09/14/23 07:23 09/14/23 07:23
I&O
09/13/23 09/14/23 09/15/23
06:59 06:59 06:59
Intake Total 480 / 480 720 / 720
Balance 480 / 480 720 / 720
--- NOTE | 2023-09-14 12:01 | CM ---
Chart reviewed. Patient is independent of ADLS, lives with his son in a [address], 0 [facility]IR[facility], 0 DME. Plan is for the patient to return home. CM to follow
--- NOTE | 2023-09-14 13:54 | W.PN.ONC ---
Today's Communication / Plan
-
3/4 PLT 166, improving
HIT ESTELLE negative
Transition to PO Eliquis
Monitor PLT count. CBC w/ diff daily
Cardiology following
Follow up CBC in 2-4 weeks on Eliquis
We will follow.
Impression
Impression
Thrombocytopenia
Atrial Fibrillation with Rapid Ventricular Response
Left Renal Mass c/w infarction (following w urology)
Subjective/Objective
Subjective/Objective
Vital Signs:
Vital Signs
Temp Pulse Resp BP Pulse Ox
97.5 F 50 18 115/87 97
09/14/23 12:39 09/14/23 11:32 09/14/23 12:39 09/14/23 07:23 09/14/23 12:39
physical exam unchanged.
Lab Results:
Laboratory Data
WBC 8.8 10^3/uL (4.8-10.8) 09/14/23 02:28
Hgb 16.4 g/dL (13.0-18.0) 09/14/23 02:28
Plt Count 166 10^3/uL (130-400) D 09/14/23 02:28
APTT Cancelled 09/09/23 14:15
eGFR > 60.00 09/14/23 02:28
09/07: CXR: No acute cardiopulmonary process.
09/07 CT abd/pelvis: Findings suggesting 2 left renal masses concerning for malignancy or infection. Not the typical appearance of pyelonephritis but not excluded. Clinical and laboratory correlation recommended.Simple right renal cyst.Moderate fecal
material throughout the colon.Mild diffuse bladder wall thickening concerning for cystitis versus bladder outlet obstruction. New.Mild prostate hypertrophy. Progressed.
--- NOTE | 2023-09-14 14:23 | PN.CDI ---
CDI
- -
CDI:
Physician Documentation Request
Admit Date: 09/07/23 22:01
Dear Doctor Naga,
Patient admitted with afib.
09/13 Cardiology PN: 'acute on chronic heart failure...Echo 09/08/2023: LVEF 45-50%'
Please provide further specificity regarding the most likely type of CHF you are evaluating, treating or monitoring.
Type
Systolic
Diastolic
Combined Systolic/Diastolic
Other
Use of terms such as suspected, likely, concern for, or probable (associated with a specific diagnosis that is being evaluated, monitored, or treated as if it exists) are acceptable and can be coded in the inpatient setting, when documented at the
time of discharge.
Thank you,
Chasity Prabhakar RN, BSN
CDI Specialist
Available via [employer] text
Please use your independent medical judgment in providing your response.
--- NOTE | 2023-09-15 00:20 | PTCARENOTE ---
Pt received start of shift, HR Afib 90s-140 with activity. L side tongue still appears slightly red, but appears to be improved. Pt c/o pain at R INT ac site after BP taken on R upper arm, requested IV be pulled. Slight redness noted at insertion
site, tender to touch. IV pulled. Pt educated on MARY procedure, digoxin uses, digoxin toxicity, lifestyle changes in regards to improving CHF, and importance of adhering to medication regimen upon discharge. SABIA pt info pages printed on
digoxin/digoxin toxicity and given to pt. Pt denies CP, SOB, or lightheadedness/dizziness at this time. Informed to notify RN if any changes, call burgos within reach.
[2023-09-15 03:49] VITALS: BP 124/92
[2023-09-15 04:50] LABS: Blood Urea Nitrogen 28 mg/dl (9-20); Calcium 9.1 mg/dl (8.4-10.2); Carbon Dioxide 22 mmol/L (22-30); Chloride 106 mmol/L (98-107); Estimated Creatinine Clearance 98 ml/min; Glucose 105 mg/dl (70-99); Potassium 4.1 mmol/L (3.5-5.1); Sodium 136 mmol/L (135-145); eGFR > 60.00
[2023-09-15] MEDS: CARDIZEM CD 240 MG PO (05:16)
[2023-09-15 06:00] VITALS: BMI 28.8
--- NOTE | 2023-09-15 07:21 | W.PN.CD ---
Today's Communication / Plan
-
- Start digoxin and increase lisinopril to 5 mg QD
Impression / Plan
-
New Afib, duration unknown, persistent
- Rate: still elevated. On Toprol XL to 100mg bid and Diltiazem 240 mg qd.
- IV Dig lowered the rates to 40s briefly but are still in 90s to 100s
- Acceptable rates with addition of digoxin.
- Will start Digoxin PO 125 mcg QD
- Rhythm: still in AFib. No plans for early cardioversion, likely after 4-6 weeks of OAT with MARY at that time given suspected renal infarct
- Anticoagulation: eliquis 5mg bid
- [id number] is at least 1 (age 1) and likely at least 3 (urology suspects renal infarct, that could change based on MRI planned for 8 weeks from now
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
Thrombocytopenia
- HIT is negative.
- Platelets are recovered
- OK for eliquis
Chest pain
- Several months of positional but not exertional very brief chest pain
- Does not seem ischemic/ACS
-eventual stress test as outpatient
-Could be related to atrial fibrillation and RVR. Likely months duration.
acute on chronic heart failure
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
- Structural heart disease: mild cardiomyopathy
- Echo 09/08/2023: LVEF 45-50%, RV enlarged, mod LAE, AoV sclerosis
- EKG 10/2021 with LAD and LAE
- CXR this admit with cardiomegaly
- pBNP elevated - possible tachycardia induced cardiomyopathy and is potentially reversible
- Elevated pBNP can be seen in AFib but this is higher than just AFib I suspect
- currently on Toprol XL and lisinopril 2.5 mg QD
- BP is elevated with rate imporved, will increase lisinopril to 5 mg QD
Left renal masses
- etiology unclear, Urology believes infarction. MRI in 8 weeks planned
LLQ pain, unknown etiology: ? renal infarct
ELVER, resolved with intravenous fluids
Subjective:
Feeling better but is anxious about all the medication he is getting. he is anxious about HRs
Physical Exam
Vital Signs/Labs
Vital Signs
Temp Pulse Resp BP Pulse Ox
98 F 104 16 124/92 98
09/15/23 03:49 09/15/23 04:00 09/15/23 03:49 09/15/23 03:49 09/15/23 03:49
09/14/23 09/15/23 09/16/23
06:59 06:59 06:59
Actual Weight 105.2 kg 104.4 kg
09/14/23 02:28
09/15/23 03:55
APTT Cancelled 09/09/23 14:15
Magnesium 2.0 mg/dl (1.6-2.3) 09/09/23 07:34
09/07/23
18:13
Kva-B-Eianptzsgng Pept [id number]
Physical Exam
Constitutional: No acute distress and Comfortable
EENT: Anicteric and Moist mucous membranes
Cardiovascular: Pedal edema is absent, JVD pressure is normal, Systolic murmur absent and Rhythm/rate is irregular
Respiratory: Respiratory effort normal, Lungs clear to auscul., Wheeze Absent and Crackles Absent
GI: Soft, Non tender and Normal bowel sounds
Neuro/Psych: Alert, Oriented, AO x 3 and Motor deficits absent
Data Reviewed
-
Date of Service: September 15, 2023
Medical Decision Making: Reviewed Test Results, Independent Historian Assessment, Test Interpretation and Review of Case with other Provider
EKG: Tracing Personally Visualized and interpreted
Labs: Labs Reviewed by me
Old Records: Reviewed
--- NOTE | 2023-09-15 08:00 | PTCARENOTE ---
Resumed care of patient from previous RN. AAOx3. oOB in chair at time of assessment. HR Afib 90s-120 with activity. Post morning meds HR dropping to 60s. Swish n spit given (no furhter complaints about tongue) 95% RA. reports loose bowel movements.
refusing stool softeners. will cotniue to monitor.
[2023-09-15] MEDS: MIRALAX PO (08:01)
[2023-09-15] MEDS: COLACE PO ×2 (08:01→19:36)
[2023-09-15] MEDS: ZESTRIL 2.5 MG PO (08:01)
[2023-09-15] MEDS: MYCOSTATIN ORAL SUSPENSION 5 ML PO ×4 (08:01→22:28)
[2023-09-15] MEDS: LIDOCAINE 4% PATCH TOPICAL (08:02)
[2023-09-15] MEDS: TOPROL XL 100 MG PO ×2 (08:02→19:31)
[2023-09-15] MEDS: ELIQUIS 5 MG PO ×2 (08:02→19:31)
--- NOTE | 2023-09-15 08:41 | W.PN.HOSP.TC ---
Today's Communication/Plan
-
see bold
Assessment / Plan
Assessment / Plan
63 y/o male without significant past medical history who presented with chest and abdominal pain.�Patient reported he has been experiencing left sided chest discomfort intermittently for a while.� Pain seemed to be worse when he lays on his left.�
Over the weekend he developed lower abdominal pain. He reports associated nausea, and constipation. He reports waking up frequently the past two nights and admits to urinary frequency.� He denies fevers, sweats or chills.
Gen: NAD, AAOx3.
Eyes: EOMI, PERRLA, no scleral icterus.
Neck: supple.
CV: irreg/irreg, +S1/S2, no m/r/g.
Resp: CTAB, no rales, wheezes, or rhonchi.
Abd: +BS, soft, NT, ND
Skin: No rashes.
MSK: palpation of L chest reproduces CP
Neuro: CN 2-12 intact, non-focal.
Psych: Normal mood and affect.
CT A/P: 2 left renal masses concerning for malignancy or infection. Not the typical appearance of pyelonephritis but not excluded. Simple right renal cyst. Moderate fecal material throughout the colon. Mild diffuse bladder wall thickening concerning
for cystitis versus bladder outlet obstruction. New. Mild prostate hypertrophy. Progressed.
Echo: EF 45-50%. Trace MR, mild TR.
New diagnosis of Atrial Fibrillation:
-with RVR, unknown duration of Afib
-was on Cardizem gtt, now off
-cont Cardizem CD/Toprol XL/Dig
-Anticoagulation for A-fib and possible renal infarct.� Initially was on heparin gtt which was held due to thrombocytopenia. Now evaluated by hematology and started on Eliquis.
-Cardiology following
-plan is to treat tachycardia induced cardiomyopathy and monitor if echo improves. No plans for cardioversion per cardiology.
Left Renal Masses:
-felt likely to be renal infarcts due to A Fib
-Uro saw in c/s, recommending treatment of A fib and outpt MRI after discharge
Other problems:
Low-grade fever: Isolated fever, now resolved, and was likely due to renal infarct. Urinalysis not suggestive of UTI. Antibiotics have been stopped.
Hyponatremia, resolved
Thrombocytopenia, resolved
FULL/Eliquis
Anticipated Discharge: Within 24 hours
Subjective/Interval History
-
Date of Service: September 15, 2023
Denies SOB. Reports CP when laying on L side.
Objective Data
-
Labs:
Laboratory Results
09/15/23
03:55
Sodium 136
Potassium 4.1
Chloride 106
Carbon Dioxide 22
BUN 28 H
Creatinine 0.9
Glucose 105 H
Calcium 9.1
Vital Signs:
Vital Signs
Temp Pulse Resp BP Pulse Ox
98.1 F 106 16 118/87 96
09/15/23 07:22 09/15/23 08:01 09/15/23 07:22 09/15/23 08:01 09/15/23 07:22
I&O
09/14/23 09/15/23 09/16/23
06:59 06:59 06:59
Intake Total 720 / 720 720 / 720
Balance 720 / 720 720 / 720
--- NOTE | 2023-09-15 11:23 | W.PN.ONC ---
Addendum entered and electronically signed by Aye Nava MD 09/15/23 14:43:
agree w/ A&P as below
no ongoing hematology issues, we will sign off
Original Note:
Today's Communication / Plan
-
3/4 PLT 166, recovering
Continue to monitor platelet count/monitor for bleeding
Follow up with PCP for management of anticoagulation
CBC in 2-4 weeks on Eliquis.
We will sign off.
Impression
Impression
Thrombocytopenia
Atrial Fibrillation with Rapid Ventricular Response
Left Renal Mass c/w infarction (following w urology)
Subjective/Objective
Subjective/Objective
cardiology at bedside.
Vital Signs:
Vital Signs
Temp Pulse Resp BP Pulse Ox
98.1 F 106 16 118/87 96
09/15/23 07:22 09/15/23 08:01 09/15/23 07:22 09/15/23 08:01 09/15/23 08:00
physical exam unchanged.
Lab Results:
Laboratory Data
WBC 8.8 10^3/uL (4.8-10.8) 09/14/23 02:28
Hgb 16.4 g/dL (13.0-18.0) 09/14/23 02:28
Plt Count 166 10^3/uL (130-400) D 09/14/23 02:28
APTT Cancelled 09/09/23 14:15
eGFR > 60.00 09/15/23 03:55
[2023-09-15] MEDS: LANOXIN 125 MCG PO (12:02)
[2023-09-15 15:42] VITALS: BP 103/66
--- NOTE | 2023-09-15 17:14 | PTCARENOTE ---
Pt had IV removed yesterday in R antecubital d/t discomfort. Today area is edematous/red/warm/hard. Area of erythema measures 10cm x 10cm. Area marked w/ skin marker.
[2023-09-15 18:58] VITALS: BP 115/83
[2023-09-15 22:28] VITALS: BP 117/75
--- NOTE | 2023-09-15 23:30 | PTCARENOTE ---
Pt received at start of shift, HR Afib/flutter w/ PVCs 70s-100s. Pt updated on plan of care, pt states no further questions at this time. Pt denies any CP, SOB, lightheadedness/dizziness at this time. Informed to notify RN if any changes, call burgos
within reach.
Pt c/o back itching. Skin assessed, no rash noted. Lotion applied, effective, pt no longer complaining of itching.
[2023-09-16 03:20] VITALS: BP 153/110
[2023-09-16 03:22] VITALS: BP 150/90
[2023-09-16 03:23] VITALS: BP 136/87
[2023-09-16 06:00] VITALS: BMI 28.5
[2023-09-16] MEDS: CARDIZEM CD 240 MG PO (06:23)
[2023-09-16 06:50] VITALS: BP 125/96
[2023-09-16] MEDS: TYLENOL 650 MG PO (07:54)
[2023-09-16] MEDS: LIDOCAINE 4% PATCH TOPICAL (07:55)
[2023-09-16] MEDS: COLACE PO ×2 (07:55→08:02)
[2023-09-16] MEDS: MYCOSTATIN ORAL SUSPENSION 5 ML PO (07:55)
[2023-09-16] MEDS: ZESTRIL 2.5 MG PO (07:55)
[2023-09-16] MEDS: ELIQUIS 5 MG PO (07:55)
[2023-09-16] MEDS: MIRALAX PO (07:56)
[2023-09-16] MEDS: TOPROL XL 100 MG PO (07:58)
--- NOTE | 2023-09-16 08:20 | W.PN.HOSP.TC ---
Today's Communication/Plan
-
d/c
Assessment / Plan
Assessment / Plan
63 y/o male without significant past medical history who presented with chest and abdominal pain.�Patient reported he has been experiencing left sided chest discomfort intermittently for a while.� Pain seemed to be worse when he lays on his left.�
Over the weekend he developed lower abdominal pain. He reports associated nausea, and constipation. He reports waking up frequently the past two nights and admits to urinary frequency.� He denies fevers, sweats or chills.
Gen: NAD, AAOx3.
Eyes: EOMI, PERRLA, no scleral icterus.
Neck: supple.
CV: remains irreg/irreg, +S1/S2, no m/r/g.
Resp: remains CTAB, no rales, wheezes, or rhonchi.
Abd: +BS, soft, NT, ND
Skin: No rashes.
Neuro: CN 2-12 intact, non-focal.
Psych: anxious
CT A/P: 2 left renal masses concerning for malignancy or infection. Not the typical appearance of pyelonephritis but not excluded. Simple right renal cyst. Moderate fecal material throughout the colon. Mild diffuse bladder wall thickening concerning
for cystitis versus bladder outlet obstruction. New. Mild prostate hypertrophy. Progressed.
Echo: EF 45-50%. Trace MR, mild TR.
New diagnosis of Atrial Fibrillation:
-with RVR, unknown duration of Afib
-was on Cardizem gtt, now off
-cont Cardizem CD/Toprol XL/Dig
-Anticoagulation for A-fib and possible renal infarct.� Initially was on heparin gtt which was held due to thrombocytopenia. Now evaluated by hematology and started on Eliquis.
-Cardiology following. Case discussed with Dr. Mc. From his standpoint pt is medically cleared for d/c. Will have outpt MARY/CV at some point in the future.
Left Renal Masses:
-felt likely to be renal infarcts due to A Fib
-Uro saw in c/s, recommending treatment of A fib and outpt MRI after discharge
Other problems:
Low-grade fever: Isolated fever, now resolved, and was likely due to renal infarct. Urinalysis not suggestive of UTI. Antibiotics have been stopped.
Hyponatremia, resolved
Thrombocytopenia, resolved
FULL/Eliquis
Total time spent on d/c = 33 min. This included today's physical exam, progress note, review of laboratory and diagnostic data, preparation of discharge documents and prescriptions, and discussions about the pt's hospital course and discharge plan
with the patient and other medical office asst involved in the patient's care.
Anticipated Discharge: Today
Subjective/Interval History
-
Date of Service: September 16, 2023
No new complaints. Pt with concerns about his HR going to 130 with ambulation.
Objective Data
-
Vital Signs:
Vital Signs
Temp Pulse Resp BP Pulse Ox
97.6 F 110 16 125/96 97
09/16/23 06:50 09/16/23 06:50 09/16/23 06:50 09/16/23 06:50 09/16/23 06:50
I&O
09/15/23 09/16/23 09/17/23
06:59 06:59 06:59
Intake Total 720 / 720 260 / 260
Balance 720 / 720 260 / 260
--- NOTE | 2023-09-16 08:37 | W.PN.CD ---
Today's Communication / Plan
-
- no new cardiac plans and I will sign off. OK for d/c.
- Plan - as listed previously - is cardioversion, likely after 4-6 weeks of OAT with MARY at that time given suspected renal infarct. Rhythm control strategy due to CM.
- MEDS: below
- Follow up: Allyson Avila Oct 06 at 10:40 AM
Impression / Plan
-
New Afib, duration unknown, persistent
- Rate: controlled on dilt, dig, and metoprolol
- Rhythm: still in AFib. No plans for early cardioversion, likely after 4-6 weeks of OAT with MARY at that time given suspected renal infarct
- Anticoagulation: eliquis 5mg bid
- [id number] is at least 1 (age 1) and likely at least 3 (urology suspects renal infarct, that could change based on MRI planned for 8 weeks from now
- can consider AF ablation consult as outpatient if interested in assisted rhythm control.
- he would like an MRI to evaluate his brain. He has no neuro symptoms, but is concerned about silent infarctions and the prognostic implications for that. This is not an acute need for inpatient MRI and I would defer that to outpatient setting
Thrombocytopenia
- HIT is negative.
- Platelets are recovered
- OK for Eliquis
Chest pain
- Several months of positional but not exertional very brief chest pain
- Does not seem ischemic/ACS
-eventual stress test as outpatient
- Could be related to atrial fibrillation and RVR. Likely months duration.
acute on chronic heart failure
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
- Structural heart disease: mild cardiomyopathy
- Echo 09/08/2023: LVEF 45-50%, RV enlarged, mod LAE, AoV sclerosis
- EKG 10/2021 with LAD and LAE
- CXR this admit with cardiomegaly
- pBNP elevated - possible tachycardia induced cardiomyopathy and is potentially reversible
- currently on BB/THERESA. Escalate and add other GDMT as tolerated as OP
Left renal masses - etiology unclear, Urology believes infarction. MRI in 8 weeks planned
LLQ pain, unknown etiology: ? renal infarct
ELVER, resolved with intravenous fluids
Dispo
- no new cardiac plans and I will sign off. OK for d/c.
- Plan - as listed previously - is cardioversion, likely after 4-6 weeks of OAT with MARY at that time given suspected renal infarct. Rhythm control strategy due to CM.
- MEDS: below
- Follow up: Allyson Avila Oct 06 at 10:40 AM
Subjective:
Notices his HR is faster with activity but he doesn't feel it. Some atypical CP when he lays on his left side. No dyspnea. Understandably concerned about his AF, HR, renal infarcts, etc - all this is new.
Laboratory Data
09/14/23 09/15/23
03:55
Hgb 16.4
Creatinine 0.9
Selected Entries
09/07/23
18:44 09/16/23
06:00 10/14/21
11:20
Actual Weight 234 lb 12.677
oz 227 lb 15.327
oz 227 lb 4.745 oz
Generic Name Dose Route Start Last Admin
Trade Name Freq PRN Reason Stop Dose Admin
Apixaban 5 mg 09/09/23 13:40
Apixaban (Eliquis) 5 Mg Tablet PO 10/07/23 13:39
BID ZOE
Metoprolol Succinate 100 mg 09/10/23 20:00
Metoprolol 100 Mg Extended Release Tablet PO 10/08/23 19:59
BID ZOE
Diltiazem HCl 240 mg 09/13/23 06:00
Diltiazem 240 Mg Extended Release (24 H) Capsule PO 10/11/23 05:59
DAILY@0600 ZOE
Digoxin 125 mcg 09/14/23 12:00
Digoxin 125 Mcg Tablet PO 10/12/23 11:59
NOON ZOE
Lisinopril 2.5 mg 09/15/23 08:00
Lisinopril 2.5 Mg Tablet PO 10/13/23 07:59
DAILY ZOE
Physical Exam
Vital Signs/Labs
Vital Signs
Temp Pulse Resp BP Pulse Ox
36.4 C 110 16 125/96 97
09/16/23 06:50 09/16/23 06:50 09/16/23 06:50 09/16/23 06:50 09/16/23 06:50
09/15/23 09/16/23 09/17/23
06:59 06:59 06:59
Actual Weight 230 lb 2.601 oz 227 lb 15.327 oz
09/14/23 02:28
09/15/23 03:55
APTT Cancelled 09/09/23 14:15
Magnesium 2.0 mg/dl (1.6-2.3) 09/09/23 07:34
09/07/23
18:13
[id number] Pept 7690
Physical Exam
Constitutional: No acute distress
EENT: Anicteric and Moist mucous membranes
Cardiovascular: Pedal edema is absent, Systolic murmur absent, Diastolic murmur absent and Rhythm/rate is irregular
Respiratory: Respiratory effort normal
Neuro/Psych: Alert
Data Reviewed
-
Date of Service: September 16, 2023
EKG: Other (tele AF around 90 with HR 120s with activity.)
[2023-09-16] MEDS: LANOXIN 125 MCG PO (11:19)
--- NOTE | 2023-09-16 13:40 | W.DCSUMMARY ---
Discharge Summary
Discharge Data
Date of Admission: 09/07/23
Date of Discharge: 09/16/23
-
Pending Results: No
Hospital Course
Primary diagnoses:
Atrial fibrillation with rapid ventricular rate
Renal infarct
Secondary diagnoses:
Thrombocytopenia
Isolated, low-grade fever likely due to renal infarct
Hyponatremia
Consultants:
Cardiology
Oncology
Urology
Imaging:
CT A/P: 2 left renal masses concerning for malignancy or infection. Not the typical appearance of pyelonephritis but not excluded. Simple right renal cyst. Moderate fecal material throughout the colon. Mild diffuse bladder wall thickening concerning
for cystitis versus bladder outlet obstruction. New. Mild prostate hypertrophy. Progressed.
Echo: EF 45-50%. Trace MR, mild TR.
63-year-old male who presented with chest pain and was in rapid atrial fibrillation as outlined in the H&P done on admission. Hospital course by problem list:
New diagnosis of Atrial Fibrillation: Patient presented in atrial fibrillation with rapid ventricular response. He was placed on a Cardizem drip which was weaned to off. He was placed on oral medications for his atrial fibrillation including
Cardizem CD, Toprol-XL, digoxin. Patient was initially placed on a heparin drip which was held due to thrombocytopenia. He was eval by hematology and was able to be started on Eliquis. Echocardiogram as above. Patient's slightly depressed EF was
likely due to high-output heart failure. Patient will need a MARY cardioversion at some point in the future.
Left Renal Masses: These were felt to likely be renal infarcts due to atrial fibrillation. Urology is on consultation. They recommended an MRI in approximately 8 weeks after discharge.
Discharge Plan
-
Patient Disposition: Home (Routine Discharge)
Discharge Diagnosis/Procedures: Atrial fibrillation with rapid ventricular rate
Renal infarct
Thrombocytopenia
Mild cardiomyopathy
Condition: Good
Diet: Other diet
Additional Diets: heart healthy
Activity: As tolerated
Driving Restrictions: As prior to admission
Bathing Restrictions: None
Referrals:
Arsh Van MD [Active] -
NONE,* [Family Provider] - in less than 1 week
Prescriptions:
New
Eliquis 5 mg Tablet
5 mg PO BID Qty: 60 0RF
lidocaine 4 % Adhesive Patch,Medicated
1 patch topical DAILY Qty: 30 0RF
diltiazem HCl 240 mg Capsule,Extended Release 24hr
240 mg PO DAILY@0600 Qty: 30 0RF
metoprolol succinate 100 mg Tablet Extended Release 24 Hr
100 mg PO BID Qty: 60 0RF
docusate sodium 100 mg Capsule
100 mg PO BID Qty: 0 0RF
digoxin 125 mcg (0.125 mg) Tablet
125 mcg PO NOON Qty: 30 0RF
lisinopril 2.5 mg Tablet
2.5 mg PO DAILY Qty: 30 0RF
nystatin 100,000 unit/mL Suspension
5 ml PO QID Qty: 140 0RF
polyethylene glycol 3350 [HealthyLax] 17 gram Powder In Packet
17 g PO DAILY Qty: 0 0RF
Discharge Orders:
Discharge Patient (As Directed); Ordered 09/16/23
Ordered By: Ted Mckoy
Care Plan Goals
Care Plan Goals:
Problem: Readiness for enhanced knowledge related to diagnosis and treatment plan
Goal: Understand your diagnosis and treatment plan needs, including medications if applicable.
Instructions: Know your diagnosis, underlying causes and treatment plan options, including medications if applicable. Consult with your health care team to learn about your diagnosis and treatment plan, including medications if applicable.
Discharge Date and Time
Discharge Date/Time: 09/16/23 13:27
== END 2023-09-16 13:27 | disposition home or self-care (01) | DRG 308 ==
LOC: IVU 22:01
PROVIDERS: Clinical Nurse Specialist Family Health; Emergency Medicine; Internal Medicine; Nurse Practitioner Gerontology; Physician Assistant Medical; ADMITTING PHYSICIAN Hospitalist; ATTENDING PHYSICIAN Internal Medicine; CONSULT PHYSICIAN Specialist; EMERGENCY PHYSICIAN Emergency Medicine; OTHER PHYSICIAN Internal Medicine Cardiovascular Disease; OTHER PHYSICIAN Internal Medicine Hematology & Oncology
DX: I48.19 Other persistent atrial fibrillation (principal); I50.43 Acute on chronic combined systolic (congestive) and diastolic (congestive) heart failure; N17.9 Acute kidney failure, unspecified; N28.0 Ischemia and infarction of kidney; E87.1 Hypo-osmolality and hyponatremia; N13.8 Other obstructive and reflux uropathy; I42.9 Cardiomyopathy, unspecified; R07.89 Other chest pain; D72.829 Elevated white blood cell count, unspecified; R10.32 Left lower quadrant pain; N40.1 Benign prostatic hyperplasia with lower urinary tract symptoms; N28.1 Cyst of kidney, acquired; D75.1 Secondary polycythemia; D69.6 Thrombocytopenia, unspecified; R35.0 Frequency of micturition; K59.00 Constipation, unspecified; R11.0 Nausea; Z85.828 Personal history of other malignant neoplasm of skin; Z82.49 Family history of ischemic heart disease and other diseases of the circulatory system
CPT/HCPCS: 71046; 74177; 80048; 80053; 81003; 81015; 82607; 83605; 83690; 83735; 83880; 84443; 84484; 85025; 85027; 85730; 86022; 86803; 87040; 87324; 87449; 93005; 93306; 96361; 96374; 96375; 99285; J1160; Q9967

== ENCOUNTER 2023-10-15 07:01 | Day surgery (SDC) | payer OTHER, MEDICARE, SELFPAY ==
[2023-10-15 07:46] VITALS: BMI 29.4
[2023-10-15] MEDS: ELIQUIS 5 MG PO (07:56)
== END 2023-10-15 09:25 | disposition home or self-care (01) ==
LOC: CATH 07:01
PROVIDERS: ATTENDING PHYSICIAN Internal Medicine Cardiovascular Disease; FAMILY PHYSICIAN Family Medicine
DX: I48.0 Paroxysmal atrial fibrillation (principal); I34.0 Nonrheumatic mitral (valve) insufficiency; I50.42 Chronic combined systolic (congestive) and diastolic (congestive) heart failure; Z79.01 Long term (current) use of anticoagulants
CPT/HCPCS: 93312; 93320; 93325; 92960; 93005

== ENCOUNTER → 2023-12-29 18:04 | Outpatient (REF) | payer OTHER, MEDICARE, SELFPAY | LOC: MRI 18:04 | PROVIDERS: ATTENDING PHYSICIAN Specialist | DX: N28.89 Other specified disorders of kidney and ureter (principal) | CPT/HCPCS: 74183; A9575 ==

== ENCOUNTER → 2024-01-18 06:38 | Day surgery (SDC) | payer OTHER, SELFPAY | LOC: GI 06:38 | PROVIDERS: ATTENDING PHYSICIAN Internal Medicine Gastroenterology | DX: Z12.11 Encounter for screening for malignant neoplasm of colon (principal); D12.0 Benign neoplasm of cecum; D12.3 Benign neoplasm of transverse colon; K63.5 Polyp of colon; K64.0 First degree hemorrhoids; K63.89 Other specified diseases of intestine; K58.9 Irritable bowel syndrome, unspecified; Z80.0 Family history of malignant neoplasm of digestive organs | CPT/HCPCS: 45385; 45380; 88305 ==

== ENCOUNTER 2024-03-04 19:49 | Emergency (ER) | payer OTHER, SELFPAY ==
[2024-03-04] VITALS (24 sets, daily range): BP systolic 60–100; BP diastolic 47–84
--- NOTE | 2024-03-04 20:26 | ED.GENMED ---
History of Present Illness
General
Chief Complaint: Cardiac Symptoms
Source: patient and records
Exam Limitations: none
Time Seen by Provider: 03/04/24 20:00
Nursing documentation reviewed up to this point in time: agreed with
History of Present Illness
History of Present Illness:
Patient is a 63-year-old male who presents to the emergency department thinking he is in atrial fibrillation that started at 5 PM today. Patient began to feel his heart beat fast and felt lightheaded as though he was going to pass out. Patient
denied any chest pain or shortness of breath. Patient has been compliant with his Eliquis. Patient went home and checked his heart rate and was going approximately 140 to 150 bpm and the EKG was suggestive of atrial fibrillation. Patient denies
any nasal congestion or cough. Patient does complain of a sore throat on the left side that resolves with drinking water. Patient denies any GI or symptoms. Patient denies any leg pain or swelling. Patient does complain of diffuse back pain
when picking up anything. Patient states he can only stand for certain length of time before he has diffuse back pain. Patient denies any pain with movement. Both the sore throat and the back pain have been going on for weeks to months. Patient
denies any fever or chills.
Past History
Past History
ED Past Medical History: Arrthythmia (Atrial fibrillation), Cancer (Skin CA) and Other (Colon polyps)
ED Past Surgical History: Orthopedic (Left ACL replacement, Meniscus repair, Left shoulder surgery. Left hip fracture repair) and Other (Hernia, Skin graft)
Social History
Tobacco: Non-smoker
Alcohol: None
Drug: None
Personal:
Living: with family
Review of Systems
Review of Systems
All Other Systems: ROS reviewed and negative except as documented in HPI and ROS
Constitutional: Reports fatigue; Denies fever or chills
EENT: Reports sore throat
Respiratory: Reports no symptoms
Cardiac: Reports palpitations and other (Lightheaded); Denies chest pain, diaphoresis or syncope
ABD/GI: Reports no symptoms
: Reports no symptoms
Musculoskeletal: Reports back pain
Skin: Reports no symptoms
Neurological: Reports no symptoms
Hematologic/Lymphatic: Reports no symptoms
Psychiatric: Reports no symptoms
Phy Exam
Physical Exam
Physical Exam:
Physical Exam
General: No apparent distress, alert and appropriate, well nourished, well hydrated
HENT: Normocephalic, supple with no lymphadenopathy, no thyromegaly. Oropharynx and uvula are unremarkable
Eyes: Clear sclera, conjuctiva without injection
Heart: irregular irregular rhythm and tachycardic rate. No S3, S4. No murmur. No NVD
Lungs: No respiratory distress, no stridor, lung sounds clear and equal bilaterally, chest wall symmetrical and nontender
Abdomen: Soft, nontender, no organomegaly, no CVA tenderness, BS good
Neuro: Alert and oriented x 3, CN II - XII intact, no motor focality, no cerebellar dysfunction
Skin: no rash
Psychiatric: well kept. interactive and cooperative
Extremities: No edema, cyanosis, tenderness
Musculoskeletal: No cervical, thoracic or lumbar spine tenderness or paravertebral tenderness.
Course
Orders/Labs/Results
Orders:
Orders
03/04/24 19:54
EKG [Electrocardiogram (*1)] Urgent
Reason for Study: Atrial Fibrillation
EKG- Treatment ONCE
03/04/24 20:40
Complete Blood Count/With Diff Urgent
Comprehensive Metabolic Panel Urgent
Dig [Digoxin] Urgent
03/04/24 20:44
Propofol [Diprivan] 20 ml .ROUTE .STK-MED
03/04/24 20:51
EKG [Electrocardiogram (*1)] Urgent
Reason for Study: Other
Other Reason for Exam: post cardioversion
03/04/24 20:52
EKG- Treatment ONCE
Abnormal Lab Results
03/04/24
20:40
MCH 31.6 H pg
(27.0-31.0)
MPV 13.5 H fL
(7.4-10.4)
Lymphocytes % 18.8 L %
(20.5-51.1)
BUN 43 H mg/dl
(9-20)
Creatinine 1.6 H mg/dL
(0.7-1.3)
Glucose 110 H mg/dl
(70-99)
Digoxin < 0.4 L ng/ml
(0.8-2.0)
03/04/24 20:40
03/04/24 20:40
Vital Signs
Initial and Last Documented VS:
Initial Vital Signs
Temp Pulse Resp BP Pulse Ox
97.5 F 74 16 95/59 95
03/04/24 19:50 03/04/24 19:50 03/04/24 19:50 03/04/24 19:50 03/04/24 19:50
Last Documented Vital Signs
Temp Pulse Resp BP Pulse Ox
97.8 F 57 16 100/65 97
03/04/24 21:30 03/04/24 22:30 03/04/24 22:30 03/04/24 22:30 03/04/24 22:30
Procedures
Cardioversion
Indication:: Afib
Performed by:: linkenheimer
Synchronized?: Yes
Energy Used: 150 joules
Number of attempts: 1
Successful?: Yes
Complications: transient hypotension
ASA Risk Score: Class II
Any reaction or bad outcome to prior sedation/anesthesia?: No history of a reaction
Sedation level to be attained: deep
Chart and allergies reviewed: Yes
Patient reassessed prior to sedation: Yes
Time out completed at (validating right patient & procedure): 20:49
History of difficult intubation: No
Airway free of obstruction: Yes
Patient has a gag reflex: Yes
Patient is able to open mouth: Yes
Patient has no dentures: Yes
Patient has no loose teeth: Yes
Medication administered by Provider during Moderate Sedation: IV Propofol (mg)
Total dose administered: 70
Time drug administered: 20:49
Start Time: 20:49
Stop Time: 21:00
*Radiology
Radiology exam reviewed: other (na)
*Pulse Oximetry
Patient hypoxic: no
*EKG
Interpreted by ED Provider?: Yes
EKG Intrepretation Date: 03/04/24
EKG Intrepretation Time: 20:32
Interpretation: abnormal
Comparison EKG: changes noted
Heart Rate: 108
Rate: tachycardiac
Rhythm: a-fib
[place]: left axis deviation
Interval: normal QT interval
QRS Pattern: normal QRS
Ischemia: non-specific ST changes
*Switchgear Repairer Interpretation
Rate: tachycardiac
Interpretation: abnormal
Heart Rate: 120
Rhythm: a-fib
*Critical Care Note
Total Time (30-74mins, 75-104mins- exclusive of procedures): Not Applicable
ED Attending Note
-
Portions of this chart may have been created with voice recognition software.� Occasional wrong word or��sound alike� substitutions may have occurred due to the inherent limitations of voice recognition software.
Discharge Plan
Departure
Patient Disposition: Home (Routine Discharge)
Date of Disposition: 03/04/24
Time of Disposition: 22:44
Patient with high blood pressure during this ER visit?: No
Condition: Good
Covid-19: Not Applicable
Discharge Problem:
Atrial fibrillation with rapid ventricular response, Encounter for cardioversion procedure
Instructions: Atrial Fibrillation (DC), Cardioversion (DC), MODERATE SEDATION ADULT
Prescriptions:
No Action
Eliquis 5 mg Tablet
5 mg PO BID Qty: 60 0RF
lidocaine 4 % Adhesive Patch,Medicated
1 patch topical DAILY Qty: 30 0RF
diltiazem HCl 240 mg Capsule,Extended Release 24hr
240 mg PO DAILY@0600 Qty: 30 0RF
metoprolol succinate 100 mg Tablet Extended Release 24 Hr
100 mg PO BID Qty: 60 0RF
docusate sodium 100 mg Capsule
100 mg PO BID Qty: 0 0RF
digoxin 125 mcg (0.125 mg) Tablet
125 mcg PO NOON Qty: 30 0RF
lisinopril 2.5 mg Tablet
2.5 mg PO DAILY Qty: 30 0RF
nystatin 100,000 unit/mL Suspension
5 ml PO QID Qty: 140 0RF
polyethylene glycol 3350 [HealthyLax] 17 gram Powder In Packet
17 g PO DAILY Qty: 0 0RF
Referrals:
NONE,* [Family Provider] -
Activity Restrictions/Additional Instructions:
Follow-up with your electron beam operator and call on Thursday to follow-up. Continue present medications and therapy.
Interventions
Interventions:
*General Assessment Last Done: 03/04/24 20:11
*Neglect/Abuse Screening Last Done: 03/04/24 20:11
ED- Fall Risk Assessment Last Done: 03/04/24 20:12
*ED COVID-19 Vaccine History Last Done: 03/04/24 20:11
*Nursing Disposition Last Done: 03/05/24 00:41
ED- Pulmonary Assessment Last Done: 03/04/24 23:15
ED- Cardiac Assessment Last Done: 03/04/24 23:15
Discharge Date and Time
Discharge Date/Time: 03/04/24 23:15
Print Language: SWEDISH
[2024-03-04 20:49] LABS: % Basophils 0.3 % (0-2); % Eosinophils 0.2 % (0-6); % Immature Granulocytes 0.5 % (0-0.5); % Lymphocytes 18.8 % (20.5-51.1); % Monocytes 7.3 % (1.7-9.3); % Neutrophils 72.9 % (42.2-75.2); Absolute Lymphocytes 1.6 10^3/uL (1.2-3.4); Absolute Monocytes 0.6 10^3/uL (0.1-0.6); Absolute Neutrophils 6.3 10^3/uL (1.4-6.5); Hematocrit 44.8 % (39.0-52.0); Hemoglobin 16.1 g/dL (13.0-18.0); Mean Corp Hgb Conc. 35.9 g/dL (33.0-37.0); Mean Corpuscular Hgb 31.6 pg (27.0-31.0); Mean Platelet Volume 13.5 fL (7.4-10.4); Nucleated Red Blood Cells % 0 % (-); Platelet Count 141 10^3/uL (130-400); Red Blood Cell Count 5.09 10^6/uL (4.70-6.10); Red Cell Dist. Width 11.9 % (11.5-14.5); White Blood Cell Count 8.6 10^3/uL (4.8-10.8)
[2024-03-04 21:04] LABS: ALT (SGPT) 23 U/L (0-50); AST (SGOT) 28 U/L (17-59); Alkaline Phosphatase 64 U/L (38-126); Blood Urea Nitrogen 43 mg/dl (9-20); Calcium 9.7 mg/dl (8.4-10.2); Carbon Dioxide 22 mmol/L (22-30); Chloride 101 mmol/L (98-107); Estimated Creatinine Clearance 55 ml/min; Glucose 110 mg/dl (70-99); Potassium 4.3 mmol/L (3.5-5.1); Sodium 137 mmol/L (135-145); Total Bilirubin 0.8 mg/dl (0.2-1.3); Total Protein 6.4 g/dl (6.3-8.2); eGFR 47.52
[2024-03-04 21:10] LABS: Digoxin < 0.4 ng/ml (0.8-2.0)
== END 2024-03-04 23:15 | disposition home or self-care (01) ==
LOC: EMR 19:49
PROVIDERS: EMERGENCY PHYSICIAN Emergency Medicine
DX: I48.91 Unspecified atrial fibrillation (principal); R42 Dizziness and giddiness; J02.9 Acute pharyngitis, unspecified; M54.9 Dorsalgia, unspecified; M19.90 Unspecified osteoarthritis, unspecified site; Z85.828 Personal history of other malignant neoplasm of skin; Z79.01 Long term (current) use of anticoagulants
CPT/HCPCS: 92960; 99285; 99152; 80053; 80162; 85025; 93005

== ENCOUNTER → 2024-04-01 15:58 | Outpatient (REF) | payer OTHER, SELFPAY | LOC: HWRCS 15:58 | PROVIDERS: ATTENDING PHYSICIAN Internal Medicine; FAMILY PHYSICIAN Family Medicine | DX: I48.0 Paroxysmal atrial fibrillation (principal); I48.3 Typical atrial flutter; I42.9 Cardiomyopathy, unspecified; N28.0 Ischemia and infarction of kidney; R94.31 Abnormal electrocardiogram [ECG] [EKG] | CPT/HCPCS: 93306 ==

== ENCOUNTER → 2024-04-08 11:53 | Outpatient (REF) | payer OTHER, SELFPAY | LOC: DHCBC/DCA 11:53 | PROVIDERS: ATTENDING PHYSICIAN Internal Medicine; FAMILY PHYSICIAN Family Medicine | DX: I48.0 Paroxysmal atrial fibrillation (principal); I48.3 Typical atrial flutter; I42.9 Cardiomyopathy, unspecified; N28.0 Ischemia and infarction of kidney; R94.31 Abnormal electrocardiogram [ECG] [EKG] | CPT/HCPCS: 78452; 93017; A9500; J2785 ==

== ENCOUNTER 2024-06-13 06:01 | Day surgery (SDC) | payer OTHER, SELFPAY ==
[2024-05-26 13:27] VITALS: BMI 25.0
[2024-05-26 14:30] LABS: % Basophils 0.4 % (0-2); % Eosinophils 0.1 % (0-6); % Immature Granulocytes 0.5 % (0-0.5); % Lymphocytes 12.4 % (20.5-51.1); % Neutrophils 76.6 % (42.2-75.2); Absolute Lymphocytes 0.9 10^3/uL (1.2-3.4); Absolute Monocytes 0.7 10^3/uL (0.1-0.6); Absolute Neutrophils 5.7 10^3/uL (1.4-6.5); Hematocrit 34.7 % (39.0-52.0); Hemoglobin 11.3 g/dL (13.0-18.0); Mean Corp Hgb Conc. 32.6 g/dL (33.0-37.0); Mean Corpuscular Volume 95.1 fL (80.0-94.0); Nucleated Red Blood Cells % 0 % (-); Platelet Count 382 10^3/uL (130-400); Red Blood Cell Count 3.65 10^6/uL (4.70-6.10); Red Cell Dist. Width 13.7 % (11.5-14.5); White Blood Cell Count 7.4 10^3/uL (4.8-10.8)
[2024-05-26 14:42] LABS: ALT (SGPT) 26 U/L (0-50); AST (SGOT) 37 U/L (17-59); Alkaline Phosphatase 117 U/L (38-126); Blood Urea Nitrogen 20 mg/dl (9-20); Carbon Dioxide 27 mmol/L (22-30); Chloride 98 mmol/L (98-107); Estimated Creatinine Clearance 104 ml/min; Glucose 103 mg/dl (70-99); Potassium 4.1 mmol/L (3.5-5.1); Sodium 139 mmol/L (135-145); Total Bilirubin 0.9 mg/dl (0.2-1.3); Total Protein 6.7 g/dl (6.3-8.2); eGFR > 60.00
[2024-06-13] VITALS (12 sets, daily range): BP systolic 119–140; BP diastolic 59–83; BMI 24.3
--- NOTE | 2024-06-13 08:52 | ITS.CL.ABL ---
Customs Inspector - Ablation
Ablation
Procedure Report:
AFIB ablation:
Mr. Nance is a very pleasant 63 yr old gentleman with medical history significant for symptomatic paroxysmal atrial fibrillation and typical atrial flutter on Eliquis for chronic anticoagulation therapy with recent knee surgery with disruption of
anticoagulation but has been back on Eliquis without interruption for the past one month is here in the EP lab for atrial fibrillation ablation
Date of Procedure:
06/13/24
Indications:
Symptomatic atrial fibrillation and atrial flutter.
Pre-Operative Diagnosis:
Paroxysmal atrial fibrillation and typical atrial flutter
Post-Operative Diagnosis:
Paroxysmal atrial fibrillation and typical atrial flutter
Procedure Performed:
Intracardiac Echocardiography.
Performing Physician:
Elmer Nielson MD
Assistants:
None
Anesthesia:
See anesthesia records
Detailed Description of the Procedure:
Written informed consent was obtained from the patient after a full explanation of the risks and benefits of the procedure including the risks of sedation and anesthesia.
The patient was brought to the electrophysiology laboratory in stable condition in fasting state. Continuous electrocardiographic and hemodynamic monitoring was initiated.
The initial rhythm was sinus rhythm.
The procedure site was meticulously prepared with surgical scrub and allowed to dry with no pooling. Sterile draping was applied to cover the procedure site. The image intensifier was draped with sterile bag and positioned over the patient. After
infusion of local anesthetic, vascular access was obtained under ultrasound guidance and sheaths were placed over guide wire as detailed below.
Sheath and Catheter Placement:
In the right femoral vein, an 8-[place] sheath was placed for use during the ablation procedure. A second 9-Fr sheath was placed for use during intracardiac echo procedure.
A 5-Fr was placed in the right femoral artery.
The sheaths were upgraded as needed during the case. Intracardiac catheters were positioned using direct fluoroscopic guidance.� ICE catheter was placed in RA. The following catheters / sheaths were placed
Sheaths:
��������������� 8Fr in right femoral vein
��������������� 9Fr in right femoral vein
��������������� 7Fr in right femoral vein
Catheters:
������������� Decapolar catheter � at locations of RA
������������� ICE catheter - at locations of RA, SVC, and RV.
Intracardiac ECHO:
An 8-[place] AcuNav intracardiac ECHO (ICE) probe was advanced through the 9-[place] sheath in the femoral vein into the right atrium under fluoroscopic and ICE ultrasound image guidance and a baseline ECHO study was performed. The left atrial size
was enlarged. There was trace tricuspid regurgitation. The aortic valve was grossly normal. There was borderline normal left ventricular systolic function. There was no pericardial effusion. The ZOILA has good velocities noted on Doppler.
While preparing for the trans-septal puncture, there was a mobile clot noted in the ZOILA with dense spontaneous contrast present as well. The decision was made not proceed with the trans-septal puncture.
The AF ablation was aborted and MARY drone operator was called.
The ICE images were reviewed with Dr. Watkins who agreed with the presence of ZOILA clot.
The further procedure was aborted.
The anesthesia reversed the sedation and with the reversal of the anesthesia, patient was noted to move all four extremities, and no obvious neurologic deficit noted.
Procedure End
ICE study was done again that showed stable left atrial density.
No complications noted.
Recommendations:
The figure of 8 suture was applied and the sheaths were removed and the patient was sent to the recovery.
Continue Eliquis 5 mg BID without disruption for 6 weeks and repeat MARY before planning for ablation.
Estimated Blood loss:
<10 cc
Specimens Removed:
None.
Implants / Devices:
None
Urine output:
None
Packs / Drains/ Tubes:
None
Instrument / Sponge Count Correct:
Yes
Complications of the Procedure:
None
Condition of Patient at Time of Transfer:
Hemodynamically stable with no neurological or vascular compromise.
Summary:
Intracardiac Echocardiography, cancelled atrial fibrillation ablation.
[2024-06-13] MEDS: PERCOCET 5/325 2 TABLET PO ×2 (09:30→13:32)
== END 2024-06-13 13:43 | disposition home or self-care (01) ==
LOC: CATH 06:01
PROVIDERS: ATTENDING PHYSICIAN Internal Medicine Cardiovascular Disease; OTHER PHYSICIAN Internal Medicine
DX: I48.0 Paroxysmal atrial fibrillation (principal); Z53.09 Procedure and treatment not carried out because of other contraindication; I48.3 Typical atrial flutter; I11.0 Hypertensive heart disease with heart failure; I50.32 Chronic diastolic (congestive) heart failure; E11.9 Type 2 diabetes mellitus without complications; I44.4 Left anterior fascicular block; N40.0 Benign prostatic hyperplasia without lower urinary tract symptoms; Z79.01 Long term (current) use of anticoagulants
CPT/HCPCS: 93656; C1894; C1892; C1759; 36415; 80053; 85025; 86850; 86900; 86901; 93005

== ENCOUNTER → 2024-06-20 10:04 | Outpatient (REF) | payer OTHER, SELFPAY ==
[2024-06-20 11:19] LABS: PT 17.4 Sec (11.4-14.6)
== END ==
LOC: REG 10:04
PROVIDERS: ATTENDING PHYSICIAN Internal Medicine Cardiovascular Disease
DX: I48.0 Paroxysmal atrial fibrillation (principal)
CPT/HCPCS: 36415; 85610

== ENCOUNTER → 2024-06-22 10:19 | Outpatient (REF) | payer OTHER, SELFPAY ==
[2024-06-22 11:29] LABS: PT 27.5 Sec (11.4-14.6)
[2024-06-22 14:13] LABS: HDL Cholesterol 42 mg/dl; LDL Cholesterol, Calculated 130 mg/dl; Total Cholesterol 191 mg/dl (50-199); Triglyceride 98 mg/dl (10-149); Very Low Density Lipoprotein 19 mg/dl (0-30)
== END ==
LOC: REG 10:19
PROVIDERS: ATTENDING PHYSICIAN Internal Medicine Cardiovascular Disease
DX: I48.0 Paroxysmal atrial fibrillation (principal); I42.9 Cardiomyopathy, unspecified; I34.81 Nonrheumatic mitral (valve) annulus calcification
CPT/HCPCS: 36415; 80061; 85610

== ENCOUNTER → 2024-06-27 10:11 | Outpatient (REF) | payer OTHER, SELFPAY ==
[2024-06-27 11:28] LABS: INR 2.49
[2024-06-27 11:40] LABS: HDL Cholesterol 47 mg/dl; LDL Cholesterol, Calculated 121 mg/dl; Total Cholesterol 180 mg/dl (50-199); Triglyceride 63 mg/dl (10-149); Very Low Density Lipoprotein 12 mg/dl (0-30)
== END ==
LOC: REG 10:11
PROVIDERS: ATTENDING PHYSICIAN Internal Medicine Cardiovascular Disease
DX: I48.0 Paroxysmal atrial fibrillation (principal); I42.9 Cardiomyopathy, unspecified; I34.81 Nonrheumatic mitral (valve) annulus calcification
CPT/HCPCS: 36415; 80061; 85610

== ENCOUNTER → 2024-07-04 10:06 | Outpatient (REF) | payer OTHER, SELFPAY ==
[2024-07-04 10:35] LABS: INR 3.07; PT 31.6 Sec (11.4-14.6)
== END ==
LOC: REG 10:06
PROVIDERS: ATTENDING PHYSICIAN Internal Medicine Cardiovascular Disease
DX: I48.0 Paroxysmal atrial fibrillation (principal)
CPT/HCPCS: 36415; 85610

== ENCOUNTER 2024-07-10 12:32 | Emergency (ER) | payer OTHER, MEDICARE, SELFPAY ==
[2024-07-10 12:48] VITALS: BP 109/77
[2024-07-10 13:22] LABS: % Basophils 0.4 % (0-2); % Eosinophils 0.5 % (0-6); % Immature Granulocytes 0.3 % (0-0.5); % Lymphocytes 23.1 % (20.5-51.1); % Monocytes 12.2 % (1.7-9.3); % Neutrophils 63.5 % (42.2-75.2); Absolute Lymphocytes 1.7 10^3/uL (1.2-3.4); Absolute Monocytes 0.9 10^3/uL (0.1-0.6); Absolute Neutrophils 4.7 10^3/uL (1.4-6.5); Hematocrit 40.7 % (39.0-52.0); Hemoglobin 13.4 g/dL (13.0-18.0); Mean Corp Hgb Conc. 32.9 g/dL (33.0-37.0); Mean Corpuscular Hgb 30.9 pg (27.0-31.0); Nucleated Red Blood Cells % 0 % (-); Platelet Count 164 10^3/uL (130-400); Red Blood Cell Count 4.33 10^6/uL (4.70-6.10); Red Cell Dist. Width 14.2 % (11.5-14.5); White Blood Cell Count 7.4 10^3/uL (4.8-10.8)
[2024-07-10 13:34] LABS: APTT 64.4 Sec (23.4-35.0); INR 2.97; PT 31.2 Sec (11.4-14.6)
[2024-07-10 13:39] LABS: ALT (SGPT) 56 U/L (0-50); AST (SGOT) 35 U/L (17-59); Albumin 3.9 g/dl (3.5-5.0); Alkaline Phosphatase 96 U/L (38-126); Blood Urea Nitrogen 19 mg/dl (9-20); Carbon Dioxide 29 mmol/L (22-30); Chloride 99 mmol/L (98-107); Glucose 98 mg/dl (70-99); Potassium 4.2 mmol/L (3.5-5.1); Sodium 137 mmol/L (135-145); Total Bilirubin 0.4 mg/dl (0.2-1.3); Total Protein 6.5 g/dl (6.3-8.2); eGFR > 60.00
[2024-07-10 14:01] LABS: Urine Albumin Negative (Neg - Trace); Urine Bilirubin Negative (Negative); Urine Character Clear (Clear); Urine Color Yellow; Urine Glucose Negative (Negative); Urine Ketone Negative (Negative); Urine Leukocyte Negative (Negative); Urine Nitrite Negative (Negative); Urine Occult Blood Negative (Negative); Urine Specific Gravity 1.005 (<1.030); Urine Urobilinogen Negative (Neg - 1+)
--- NOTE | 2024-07-10 16:13 | ED.GENMED ---
History of Present Illness
General
Chief Complaint: Male Genito-Urinary Symptoms
Source: patient
Exam Limitations: none
Time Seen by Provider: 07/10/24 15:54
Nursing documentation reviewed up to this point in time: agreed with
History of Present Illness
History of Present Illness:
Patient states he developed nausea and lower abd. pain overnight. Symptoms resolved after BM this AM. States he saw a streak of blood in toilet and then wiped red blood from tip of penis. COncerned that INR is too high. Brought self to ED for
eval. Denies fever/chills, v/d. +nausea last PM. Denies any back pain. Lower abd pain has resolved. On coumadin for afib/flutter. Ablation and watchman scheduled for
Past History
Past History
ED Past Medical History: Arrthythmia (Atrial fibrillation), Cancer (Skin CA) and Other (Colon polyps)
ED Past Surgical History: Orthopedic (Left ACL replacement, Meniscus repair, Left shoulder surgery. Left hip fracture repair) and Other (Hernia, Skin graft)
Social History
Tobacco: Non-smoker
Alcohol: None
Drug: None
Personal:
Living: with family
Review of Systems
Review of Systems
Allergies reviewed?: Yes
All Other Systems: ROS reviewed and negative except as documented in HPI and ROS
Constitutional: Reports no symptoms
EENT: Reports no symptoms
Respiratory: Reports no symptoms
Cardiac: Reports no symptoms
ABD/GI: Reports abdominal pain (lower abd. pain overnight.) and nausea (nausesa overnight)
: Reports other (Blood on tip of penis, streak of red blood in toilet bowl this AM)
Musculoskeletal: Reports no symptoms
Skin: Reports no symptoms
Neurological: Reports no symptoms
Psychiatric: Reports no symptoms
Phy Exam
General Physical Exam
General Presentation: well appearing and no apparent distress
General age: appears stated age
General Skin: warm and dry
General Habitus: normal
General Mental: alert
General Hydration: appears well hydrated
Gastrointestinal Exam
Gastrointestinal Exam: non tender, soft, no organomegaly, no pulsatile mass, non distended and no cva tenderness
Rectal Exam: normal external exam and normal sphincter tone
Genitourinary Exam Male
Exam Male: circumcised, no discharge, normal external genitalia, no evidence of trauma and no lesions
Musculoskeletal Exam
Musculoskeletal Exam: full ROM
Skin Exam
Skin Exam: normal color, warm/dry and no rash
Psychiatric Exam
Psychiatric Exam: normal mood/affect
Course
Orders/Labs/Results
Orders:
Orders
07/10/24 13:03
Type+Screen Urgent
Complete Blood Count/With Diff Urgent
Comprehensive Metabolic Panel Urgent
PTT Urgent
Prothrombin Time Urgent
Urinalysis Reflex To Culture Urgent
Date Specimen was Collected: 07/10/24
Time Specimen was Collected: 12:52
Abnormal Lab Results
07/10/24
13:03
RBC 4.33 L 10^6/uL
(4.70-6.10)
MCHC 32.9 L g/dL
(33.0-37.0)
MPV 11.0 H fL
(7.4-10.4)
Absolute Monos (auto) 0.9 H 10^3/uL
(0.1-0.6)
Monocytes % 12.2 H %
(1.7-9.3)
PT 31.2 H Sec
(11.4-14.6)
APTT 64.4 H Sec
(23.4-35.0)
ALT 56 H U/L
(0-50)
07/10/24 13:03
07/10/24 13:03
Vital Signs
Initial and Last Documented VS:
Initial Vital Signs
Temp Pulse Resp BP Pulse Ox
98 F 89 16 109/77 98
07/10/24 12:48 07/10/24 12:48 07/10/24 12:48 07/10/24 12:48 07/10/24 12:48
Last Documented Vital Signs
Temp Pulse Resp BP Pulse Ox
98 F 89 16 109/77 98
07/10/24 12:48 07/10/24 12:48 07/10/24 12:48 07/10/24 12:48 07/10/24 12:48
*Critical Care Note
Total Time (30-74mins, 75-104mins- exclusive of procedures): Not Applicable
Update Note
Update Note:
Patient to ED after noticing blood on tip of penis and a streak of blood in toilet bowel this AM. Had lower abd. pain overnight. Those symptoms resolved with BM. No bleeding since. Labs reviewed with him. NO concerning findings on exam today.
WIll discharge home. He will follow up with PCP in AM. Gven instructions on s/s to return to ED and he is agreeable to plan.
ED Attending Note
-
Portions of this chart may have been created with voice recognition software.� Occasional wrong word or��sound alike� substitutions may have occurred due to the inherent limitations of voice recognition software.
Discharge Plan
Departure
Patient Disposition: Home (Routine Discharge)
Date of Disposition: 07/10/24
Time of Disposition: 16:12
Patient with high blood pressure during this ER visit?: No
Condition: Good
Covid-19: Not Applicable
Discharge Problem:
Hematuria
Instructions: Blood in the urine (hematuria) in adults
Prescriptions:
No Action
oxycodone 15 mg Tablet
15 mg PO BIDPRN PRN (Reason: Pain)
flecainide 100 mg Tablet
100 mg PO Q12H
celecoxib 200 mg Capsule
200 mg PO DAILY
gabapentin 300 mg Capsule
300 mg TID
baclofen 5 mg Tablet
5 mg TID
ferrous sulfate 325 mg (65 mg iron) Tablet
325 mg PO Q48H
diazepam 10 mg Tablet
10 mg PO HS
cholecalciferol (vitamin D3) [Vitamin D3] 50 mcg (2,000 unit) Tablet
100 mcg PO DAILY
metoprolol succinate 100 mg Tablet Extended Release 24 Hr
100 mg PO BID
acetaminophen [Tylenol Extra Strength] 500 mg Capsule
1,000 mg PO TID
warfarin 7.5 mg Tablet
7.5 mg PO MOTUWETHFR
warfarin 5 mg Tablet
5 mg PO SUSA
Rx Instructions:
THURSDAY, THURSDAY
Activity Restrictions/Additional Instructions:
Follow up with your family doctor. Return to the emergency department immediately for any changes in/worsening of your symptoms
Interventions
Interventions:
*Risk Screen - Suicide Last Done: 07/10/24 12:50
*General Assessment Last Done: 07/10/24 12:48
*Neglect/Abuse Screening Last Done: 07/10/24 12:50
Discharge Date and Time
Print Language: LAO
[2024-07-10 16:26] VITALS: BP 108/78
== END 2024-07-10 16:33 | disposition home or self-care (01) ==
LOC: EMR 12:32
PROVIDERS: Emergency Medicine; EMERGENCY PHYSICIAN Emergency Medicine
DX: R31.9 Hematuria, unspecified (principal)
CPT/HCPCS: 99283; 80053; 81003; 85025; 85610; 85730; 86850; 86900; 86901

== ENCOUNTER → 2024-07-11 11:43 | Outpatient (REF) | payer OTHER, MEDICARE, SELFPAY ==
[2024-07-11 13:06] LABS: PT 27.4 Sec (11.4-14.6)
[2024-07-11 13:43] LABS: ALT (SGPT) 48 U/L (0-50); AST (SGOT) 30 U/L (17-59); HDL Cholesterol 45 mg/dl; LDL Cholesterol, Calculated 127 mg/dl; Total Cholesterol 185 mg/dl (50-199); Triglyceride 67 mg/dl (10-149); Very Low Density Lipoprotein 13 mg/dl (0-30)
== END ==
LOC: REG 11:43
PROVIDERS: ATTENDING PHYSICIAN Internal Medicine
DX: I48.0 Paroxysmal atrial fibrillation (principal); I42.9 Cardiomyopathy, unspecified; I34.81 Nonrheumatic mitral (valve) annulus calcification; Z01.810 Encounter for preprocedural cardiovascular examination; D69.6 Thrombocytopenia, unspecified
CPT/HCPCS: 36415; 80061; 84450; 84460; 85610; 93355

== ENCOUNTER 2024-07-12 08:06 | Inpatient (IN) | payer OTHER, MEDICARE, SELFPAY ==
[2024-07-04 13:21] VITALS: BMI 25.0
--- NOTE | 2024-07-04 13:46 | HPS.HSE ---
Family Physician
-
Family Physician: Raymundo Castle
Chief Complaint
-
Paroxysmal atrial fibrillation and typical atrial flutter.
History of Present Illness
The patient is a 63 year old male presenting today for paroxysmal atrial fibrillation and typical atrial flutter. The patient reports a history of dizziness and near syncope secondary to his arrhythmias. He previously underwent 2
MARY-guided cardioversions. He in on current pharmacological therapy with Flecainide and Metoprolol. He was initially on Diltiazem but this was discontinued after experiencing symptomatic bradycardia. He is noted to be bradycardic today but denies
abnormal symptoms. He was set to undergo an ablation for these diagnoses on 06/13/2024; however, an intracardiac echocardiogram prior to his procedure revealed a left atrial appendage thrombus. The patient reports he had been compliant with Eliquis
for oral anticoagulation and denied recent missed doses. His Eliquis was switched to Warfarin which he currently tolerates. He will proceed with an atrial fibrillation and atrial flutter ablation at this time. Given his compliance with oral
anticoagulation and left atrial appendage thrombus, the plan is to also proceed with Watchman implantation along with his ablation. He denies any current complaints today such as chest pain, shortness of breath, palpitations, nausea, vomiting,
cough, sore throat, or fever.
Medical History
Past Medical History
Past Medical History: Reports Other
Additional Past Medical History:
1. Paroxysmal atrial fibrillation and typical atrial flutter, status post MARY-guided cardioversion x2; pharmacological therapy with Flecainide and Metoprolol Succinate, oral anticoagulation with Warfarin.
2. Left atrial appendage thrombus visualized on intracardiac echo 06/13/2024; Eliquis switched to Warfarin.
3. Hypertension.
4. Coronary artery disease, moderate per chest CTA 07/04/2024.
5. Sinus bradycardia, asymptomatic.
6. Congestive heart failure, recovered ejection fraction.
7. Colon polyps.
8. 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
9. Liver hemangiomas.
10. Osteoarthritis.
11. BPH on CT 08/2023.
12. Skin cancer, status post excision.
13. Insomnia.
14. Prediabetes.
15. Elevated transaminases secondary to liver hemangiomas and current Tylenol use.
Past Surgical History: Reports Other
Additional Past Surgical History:
1. Intracardiac echocardiogram.
2. MARY-guided cardioversion x2.
3. Bilateral total knee arthroplasty.
4. Left hip fracture repair.
5. Left knee ACL repair.
6. Right knee meniscectomy.
7. Left shoulder rotator cuff repair.
8. Right inguinal hernia repair.
9. Left inguinal hernia repair with mesh.
10. Skin graft.
11. Colonoscopy.
Social History
Tobacco: Non-smoker
Alcohol: None
Personal: Single
Living: Alone (in a 2 story home. )
Family History
Family History: Not pertinent
Allergies / Home Medications
Allergy/Medication List:
Home medications:
1. Acetaminophen 1000 mg p.o. three times a day.
2. Baclofen 5 mg p.o. three times a day.
3. Celebrex 200 mg p.o. daily.
4. Cholecalciferol 100 mcg p.o. daily.
5. Diazepam 10 mg p.o. at bedtime.
6. Ferrous sulfate 325 mg p.o. every 48 hours.
7. Flecainide 100 mg p.o. every 12 hours.
8. Gabapentin 300 mg p.o. three times a day.
9. Metoprolol Succinate 100 mg p.o. twice a day.
10. Oxycodone 15 mg p.o. twice a day as needed.
11. Warfarin 7.5 mg p.o. Thursday, Thursday, Thursday, , and Thursday.
12. Warfarin 5 mg p.o. Thursday and Aidan.
Allergies: No known allergies.
Review of Systems
-
A 12 point ROS was completed and negative except as noted: Yes
Physical Exam
Vital Signs
Blood pressure 127/79. Heart rate 48. Respirations 18. Pulse ox 99% on room air.
Height 6 feet, 4 inches. Weight 93.2 kg. BMI 25.0.
Physical Exam
General: Well Developed, Well Nourished and No Apparent Distress
HEENT: NormoCephalic, Moist mucous membranes, Atraumatic and PERRLA
Respiratory: Clear
Cardiac: Bradycardia
GI: Soft, Non Tender and Non Distended
Musculoskeletal: No Edema and Other (The patient currently ambulates with a single point cane after his recent bilateral total knee arthroplasty. )
Skin: Warm and Dry
Neuro: AO x 3 and Nonfocal/grossly intact
Laboratory Results
-
DIAGNOSTIC STUDIES as of 07/04/2024: White blood cell count 5.2. Hemoglobin 13.5. Platelet count 169,000. PT 31.1. INR 3.01. Sodium 138. Potassium 4.5. BUN 36. Creatinine 0.9. Glucose 103. Calcium 9.2. AST 133. ALT 105. Albumin 4.2. Type and screen
A positive.
EKG 07/04/2024: Sinus bradycardia. Possible left atrial enlargement. Left axis deviation.
Chest CTA 07/04/2024: Left Atrial Appendage Chicken Wing Morphology without evidence for thrombus. LEFT ATRIAL APPENDAGE OSTIUM MAXIMUM DIAMETER: 25.21 mm. Moderate calcific atherosclerotic plaque in the left anterior descending coronary artery.
Mild cardiomegaly with left atrial enlargement. Multiple hepatic hemangiomas. TOTAL CORONARY ARTERY CALCIUM AGATSTON SCORE: 247.58.
Nuclear stress test 04/08/2024: Normal Lexiscan nuclear stress test. No evidence of infarction or ischemia. Systolic function is normal. The ejection fraction is 57%. Stress Risk is moderate risk study (1 - 3% [place] or /year) due to pharmacologic
agent used. No previous study available for comparison.
Echocardiogram 04/01/2024: Normal left ventricular size, wall thickness, and systolic function. Left ventricular ejection fraction is 55-60% by Dill's method of discs. Normal diastolic function. Normal right ventricular size and function. No
significant valvular disease. Estimated pulmonary artery pressure of 30 mmHg, assuming a right atrial pressure of 3 mmHg. Compared to prior from September 08, 2023, overall left ventricular ejection fraction is now normal at 55 to 60% (previously
mildly reduced at 45 to 50%).
Impression/Plan
-
IMPRESSION/PLAN:
1. Paroxysmal atrial fibrillation and typical atrial flutter: The patient is in need of an atrial fibrillation and atrial flutter ablation with Dr. Elmer Nielson on 07/12/2024. Thankfully, no thrombus was visualized on his pre-operative chest CTA.
In an addition to his ablation, the patient will also undergo a Watchman implantation that day with Dr. Elmer Nielson, who will be assisted by Dr. Hemanth Barraza. The benefits and risks of all procedures have been explained to the patient. The
patient understands the risks and wishes to proceed.
2. Current Celebrex use: The patient is currently on Celebrex due to his recent bilateral total knee arthroplasty. It was strongly recommended the patient discontinue this medication due to prior renal infarct, elevated transaminases, and increased
risk of bleeding with current Warfarin for oral anticoagulation.
3. Elevated transaminases: The patient was advised to stop Tylenol on 07/05/2024. Repeat liver function testing will be drawn the morning of his procedure. Should his transaminases still be elevated, his procedures will likely need to be postponed.
[2024-07-04 14:07] LABS: % Basophils 0.6 % (0-2); % Eosinophils 0.4 % (0-6); % Immature Granulocytes 0.2 % (0-0.5); % Lymphocytes 26.2 % (20.5-51.1); % Monocytes 9.4 % (1.7-9.3); % Neutrophils 63.2 % (42.2-75.2); Absolute Lymphocytes 1.4 10^3/uL (1.2-3.4); Absolute Monocytes 0.5 10^3/uL (0.1-0.6); Absolute Neutrophils 3.3 10^3/uL (1.4-6.5); Hematocrit 42.7 % (39.0-52.0); Hemoglobin 13.5 g/dL (13.0-18.0); Mean Corp Hgb Conc. 31.6 g/dL (33.0-37.0); Mean Corpuscular Hgb 30.4 pg (27.0-31.0); Mean Corpuscular Volume 96.2 fL (80.0-94.0); Mean Platelet Volume 11.6 fL (7.4-10.4); Nucleated Red Blood Cells % 0 % (-); Platelet Count 169 10^3/uL (130-400); Red Blood Cell Count 4.44 10^6/uL (4.70-6.10); Red Cell Dist. Width 14.4 % (11.5-14.5); White Blood Cell Count 5.2 10^3/uL (4.8-10.8)
[2024-07-04 14:16] LABS: INR 3.01; PT 31.1 Sec (11.4-14.6)
[2024-07-04 14:21] LABS: ALT (SGPT) 105 U/L (0-50); AST (SGOT) 133 U/L (17-59); Albumin 4.2 g/dl (3.5-5.0); Alkaline Phosphatase 87 U/L (38-126); Blood Urea Nitrogen 36 mg/dl (9-20); Calcium 9.2 mg/dl (8.4-10.2); Carbon Dioxide 31 mmol/L (22-30); Chloride 101 mmol/L (98-107); Estimated Creatinine Clearance 100 ml/min; Glucose 103 mg/dl (70-99); Potassium 4.5 mmol/L (3.5-5.1); Sodium 138 mmol/L (135-145); Total Bilirubin 0.3 mg/dl (0.2-1.3); Total Protein 6.7 g/dl (6.3-8.2); eGFR > 60.00
[2024-07-12] VITALS (16 sets, daily range): BP systolic 104–125; BP diastolic 68–92; BMI 25.0
[2024-07-12 09:14] LABS: INR 2.09; PT 23.9 Sec (11.4-14.6)
--- NOTE | 2024-07-12 09:14 | WATCHMAN ---
Watchman
Wathcman Procedure
Referred by:: June/Naga
Date of Referral:: 06/21/24
[id number] Score
Age in Years (65=0, 65-74=1, >/=75=2): 65-74
Sex (Female=+1): Male
Congestive Heart Failure History (Yes=+1): No
Hypertension History (Yes=+1): Yes
Stroke/TIA/Thromboembolism History (Yes=+2): No
Vascular Disease History (Yes=+1): No
Diabetes Mellitus (Yes=+1): No
Score: 2
Anticoagulation Recommendations: Recommend anticoagulation (as validated in nonvalvular fib)
HASBLED Score
Hypertenstion (uncontrolled >160mmHG systolic): No
Renal disease (dialysis, transplant, Cr >2.26mg/dL or >200umol/L): No
Liver disease (cirrhosis or bilirubin >2x normal w/ AST/ALT/AP >3x normal: No
Stroke history: No
Prior major bleeding or predisposition to bleeding: Yes
Labile INR(unsable/high INRs,time in therapeutic range <60%): No
Age >65: Yes
Medication usage predisposing to bleeding(ASA, NSAIDS): Yes
Alcohol use (>/= 8 drinks/week): No
Score: 3
Risk: Alternatives to anticoagulation should be considered: Patient is at high risk for major bleeding
Physician Visits
Metallic Yarn Slitting Machine Operator:: Naga
Date of Visit:: 06/21/24
Primary Nurse Aide:: June
Date of Visit:: 03/16/24
PCP:: More
Oral Anticoagulation
Post procedure anticoagulation plan:: Coumadin as directed for 3 months until follow up MARY on 10/11/2024
Plan
Plan:: 06/21/2024: Consult received from Dr. Nielson. Plan for watchman and farapulse ablation combined procedure. Will have CT watchman on 07/04/2024 to assess appendage and resolution of previous ZOILA clot.
07/12/2024: Patient reviewed at pre-procedure meeting. Will verify and confirm device size utilizing MARY prior to procedure. Will continue Coumadin as directed for 3 months post procedure until confirmation of no device leak at MARY on 10/11/2024.
[2024-07-12 12:11] LABS: ACT-LR - POC 376 Seconds (116-155)
--- NOTE | 2024-07-12 12:32 | ITS.CL.ABL ---
Ror Engineer - Ablation
Ablation
Procedure Report:
AFIB ablation:
Mr. Nance is a very pleasant 64 yr old gentleman, a patient of Dr. Watkins, with symptomatic paroxysmal AF, with CHADSVascc score of 4 (age, HTN and ZOILA clot � equivalent to thromboembolic events) who had failed Eliquis and was switched to Warfarin with
high risk of bleeding is recommended a placement of Watchman with atrial fibrillation ablation.
Date of the Procedure:
07/12/2024
Indications:
Paroxysmal atrial fibrillation, ZOILA clot with failed Eliquis
Pre-Operative Diagnosis:
Paroxysmal atrial fibrillation, ZOILA clot with failed Eliquis
Post-Operative Diagnosis:
Paroxysmal atrial fibrillation, ZOILA clot with failed Eliquis
Procedure Performed:
Atrial fibrillation ablation with Pulsed-Field approach for pulmonary vein isolation
Left atrial appendage occlusion with Watchman implantation (31 mm Watchman FLX Pro left atrial appendage closure device)
Performing Physician:
Ablation and implant: Elmer Nielson MD
MARY: Josh Olivares M.D.
Assistants:
EP staff
Anesthesia:
See anesthesia records
Detailed Description of the Procedure:
Written informed consent was obtained from the patient after a full explanation of the risks and benefits of the procedure including the risks of sedation and anesthesia.
The patient was brought to the electrophysiology laboratory in stable condition in fasting state. Continuous electrocardiographic and hemodynamic monitoring was initiated.
The initial rhythm was sinus.
The procedure site was meticulously prepared with surgical scrub and allowed to dry with no pooling. Sterile draping was applied to cover the procedure site. The image intensifier was draped with sterile bag and positioned over the patient. After
infusion of local anesthetic, vascular access was obtained under ultrasound guidance and sheaths were placed over guide wire as detailed below.
Sheath and Catheter Placement:
The following catheters / sheaths were placed
Sheaths:
��������� 17Fr steerable sheath ([employer]�, Jamplify) in right femoral
��������� 9Fr in right femoral vein
Catheters:
��������� MARTINE HD Grid mapping catheter � at locations of RA, LA
��������� Farawave� PFA catheter
��������� ICE catheter �Mahoney ViewFlex - at locations of RA, SVC, and RV.
��������� Watchman delivery sheath
��������� Watchman catheter
Intracardiac ECHO:
An 8-Swedish AcuNav intracardiac ECHO (ICE) probe was advanced through the 9-Swedish sheath in the right femoral vein into the right atrium under fluoroscopic and ICE ultrasound image guidance and a baseline ECHO study was performed. The left atrial
size was normal. There was moderate tricuspid regurgitation. The aortic valve was grossly normal. There was normal left ventricular systolic functions. There is no pericardial effusion. All the four veins were identified and has flow identified.
There was good flow noted in the ZOILA. There was no ZOILA clot noted.
During the procedure, ICE was used for monitoring of complications, guidance of trans-septal puncture, monitor the catheter position and tracking ablation lesions. No change in the pericardial space noted throughout the procedure.
Trans-septal Puncture:
Heparin was initiated and infused to maintain appropriate ACT. A pigtail guidewire was advanced through the 8-Swedish sheath in the right femoral vein into the superior vena cava under fluoroscopic and ICE guidance. The 9-Swedish sheath was exchanged
for a Faradrive sheath which was advanced into the superior vena cava. A trans-septal RF pigtail via Faradrive connect system was utilized to perform the trans-septal puncture. The apparatus was withdrawn until it was in contact with the fossa
ovalis. The position was adjusted based on fluoroscopy and ultrasound images from ICE. Under fluoroscopic, hemodynamic and ICE ultrasound guidance, left atrium was cannulated by applying RF energy. Once atrial septum was cannulated, the pigtail wire
was advanced through the needle into the left atrium. The guide wire was advanced into the left superior pulmonary vein. Both the sheath and the dilator was advanced into the left atrium. The dilator with the needle was withdrawn. Blood was
aspirated from the Faradrive sheath and arterial blood confirmed. The sheath was flushed. Saline injection noted into the left atrium on ICE. The mapping catheter was advanced in the sheath into the left pulmonary vein. Left atrial pressure was
measured.
3D Electroanatomic Mapping:
Using the HD Grid catheter advanced through sheath into the left atrium, an electroanatomic map (EAM) of the left atrium was created using Luminal mapping system. The map was used for localization of catheter position and tacking of ablation
lesions.
The EAM of the left atrium showed 4 pulmonary veins with all 4 veins electrically connected to the body the LA. It showed normal voltage on the posterior and anterior wall of the LA. The LA was mildly dilated in size.
Following the EAM, preparation were made for ablation.
Ablation:
Ablation # 1: Pulmonary vein Isolation:
Glycopyrrolate 0.2 mg was given prior to the placement of ablation. Using SputnikBot pulsed wave ablation system, pulmonary vein isolation was achieved. First the ablation catheter was placed in the LSPV and ostial ablation lesions were performed in a
counter clock nguyen approach all around the PV ostium circumferentially. Then the catheter was placed on the antral location and multiple ablation lesions were placed circumferentially on the antrum of the vein.
In the similar fashion, the LIPV were isolated.
Then the catheter was moved to right sided veins. The ostial and antral ablations were placed as noted above.
EPS and Confirmation of the PVI and bidirectional block:
Following achievement of entrance block at the pulmonary veins, pacing from the HD catheter in each of the four veins at 10 milliamps for 2 milliseconds showed entrance and exit block. All PVI were rechecked at the end of the case and remained
isolated. Entrance and exit block were demonstrated in all veins.
Post ablation Electroanatomic mapping:
Once ablation was completed, the EAM of the LA was done again in sinus rhythm with excellent demarcation of LA myocardium and isolated antral tissue. There was no significant scarring noted in the LA.
The ZOILA had healthy signals and was not isolated.
Watchman implantation:
Using the trans-septal RF pigtail, the Faradrive sheath was swapped with Watchman delivery sheath over the RF pigtail. A curved pig tail was advanced over the guide wire into the left atrium and the wire was removed.
Left atrial appendage atriography:
The pigtail was advanced into the ZOILA and was confirmed on fluoroscopy and MARY. The contrast was injected and the ZOILA shape was recorded in RAMOS /Caudal view (20/16 degrees). The size of the ZOILA was again checked and confirmed reviewing the MARY and
the fluoroscopy along with previously obtained CT scan images.
Watchman Deployment:
The Watchman delivery sheath was advanced into the ZOILA over the pigtail till the right marker was at the location of the orifice line marked on the screen. The pigtail was removed and the Watchman delivery system was advanced through the sheath into
the ZOILA till it was aligned with the outer sheath marker inside the ZOILA. The watchman sheath was clicked with the outer sheath. Once acceptable location achieved, the outer sheath was pulled back keeping the device steady at the ZOILA location till a
ball of the device was formed under fluoroscopic guidance. The whole system was advanced further into the ZOILA till adequate depth is achieved into the ZOILA. The ZOILA occluder was deployed and expanded adequately anchoring to the ZOILA. The device was
kept anchored with stable pressure to that location for 10 seconds.
The MARY image confirmed adequate expansion. The tug test was done that showed the device is anchored well and is not able to come out. The compression was 29%, 29% and 30% on the three sides. There was no significant leak noted on the Doppler via
MARY. A contrast was injected showing adequate location of the device at the mouth of the ZOILA and no leak demonstrated.�
The device was deployed by unscrewing the Watchman device and releasing from the connecting wire. The wire was pulled back into the sheath and the sheath was pulled out of the LA.
Implanted device:
WATCHMAN FLX Pro � 31mm
Procedure End
MARY study was done again that showed no epicardial accumulation that was unchanged from earlier. A repeated images showed no change in the pericardial space. No complications noted.
Following the completion of the deployment, catheters were removed. Protamine 40 mg was given at the end of the procedure and ACT was checked repeatedly. The sheath was removed and hemostasis achieved with Figure of 8 and manual compression after
acceptable ACT is achieved.
Left atrial Pressure:
Mean LA pressure was 4mmHg
Estimated Blood loss:
<10 cc
Specimens Removed:
None.
Implants / Devices:
None
Urine output:
None
Packs / Drains/ Tubes:
None
Instrument / Sponge Count Correct:
Yes
Complications of the Procedure:
None
Condition of Patient at Time of Transfer:
Hemodynamically stable with no neurological or vascular compromise.
Summary:
Successful atrial fibrillation ablation with Pulsed Field approach for pulmonary vein isolation.
Successful implantation of the left atrial occlusion device (WATCHMAN FLX Pro� 31mm)
Post procedure Plan for anticoagulation:
Continue Warfarin for 3 months.
Based on 3 months MARY, will plan to switch Warfarin and ASA 81 mg indefinitely.
Figures from the Procedure:
Figure 1: The electroanatomic mapping (EAM) of the left atrium with bipolar voltage (purple indicates normal electrical activity with glover as no myocardial muscle electric activity indicating a line of block or scar.
[2024-07-12] MEDS: ROXICODONE 15 MG PO ×2 (14:45→19:58)
--- NOTE | 2024-07-12 14:53 | W.DS.TRANS ---
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
-
Discharge Instructions:
Sleep Apnea Risk Intermediate
Discharge Diagnosis/Procedures AFib, s/p ablation + watchman device implant
Diet Low Cholesterol
Driving Restrictions No driving for 24 hours
Others Tests 3 month follow up MARY has been scheduled for 10/11
at [facility] with Dr. Perkins.
You will receive information in the mail and a
call the day prior with arrival time.
Instructions:
Stand-Alone Forms: DC Instructions- Cath/EP Lab
Changes to Home Medications: No
Discharge Medications:
DC Medications w/original date entered in [employer]
flecainide 100 mg tablet 100 mg PO BID 05/18/24
oxycodone 15 mg tablet 15 mg PO Q4HPRN PRN Pain 05/18/24
baclofen 5 mg tablet 5 mg PO TID 06/13/24
gabapentin 300 mg capsule 300 mg PO TID 06/13/24
cholecalciferol (vitamin D3) 50 mcg (2,000 unit) tablet (Vitamin D3) 100 mcg PO DAILY 06/30/24
diazepam 10 mg tablet 10 mg PO HS 06/30/24
ferrous sulfate 325 mg (65 mg iron) tablet 325 mg PO Q48H 06/30/24
metoprolol succinate 100 mg tablet,extended release 24 hr 100 mg PO BID 06/30/24
warfarin 5 mg tablet 5 mg PO SUSA 06/30/24
warfarin 7.5 mg tablet 7.5 mg PO MOTUWETHFR 06/30/24
Home Medication Changes
Pending Results: No
[2024-07-12 15:07] LABS: ACT-LR - POC > 397 Seconds (116-155)
[2024-07-12 15:07] LABS: ACT-LR - POC > 397 Seconds (116-155)
--- NOTE | 2024-07-12 16:21 | CM ---
Chart reviewed. Patient is independent of ADLS, lives alone in a 2 STH, 0 YADIRA, ambulates with a SPC and RW if needed. Plan is for the patient to return home. CM to follow
[2024-07-12] MEDS: NEURONTIN 300 MG PO ×2 (17:42→22:32)
[2024-07-12] MEDS: COUMADIN 7.5 MG PO (17:42)
[2024-07-12] MEDS: FLUSH (NSS) 1 FLUSH IV (17:43)
--- NOTE | 2024-07-12 17:58 | PTCARENOTE ---
Received patient from recovery area after PVI and watchman's procedure. Oriented to the room and plan of care. Dressing right groin is dry and intact and patient maintained post restrictions until figure of 8 removed as ordered. Patient stated to
me that he was just here on Thursday in the ED with hematuria. He was worried about his INR and had it checked, which was normal and has had no further bleeding but that he did not inform anyone of this today. TT to Dr. Nielson and ok to proceed with
PM dose of coumadin.
[2024-07-12] MEDS: LIORESAL 5 MG PO ×2 (18:25→22:32)
[2024-07-12] MEDS: TOPROL XL 100 MG PO (19:59)
[2024-07-12] MEDS: TAMBOCOR 100 MG PO (20:20)
--- NOTE | 2024-07-12 20:27 | PTCARENOTE ---
Pt received from [facility]. R geoffrey CDI- palpable DP. Ambulating the room as a self with his spc. Plan of care discussed pt verbalized understanding. PRN pain medications for 7/10 B/L Knee pain provided.
[2024-07-12] MEDS: VALIUM 10 MG PO (22:32)
[2024-07-13] MEDS: ROXICODONE 15 MG PO ×5 (00:12→16:15)
[2024-07-13 03:52] VITALS: BP 126/86
[2024-07-13 04:27] LABS: Hematocrit 40.5 % (39.0-52.0); Hemoglobin 13.2 g/dL (13.0-18.0); Mean Corp Hgb Conc. 32.6 g/dL (33.0-37.0); Mean Corpuscular Hgb 30.3 pg (27.0-31.0); Mean Corpuscular Volume 92.9 fL (80.0-94.0); Mean Platelet Volume 11.5 fL (7.4-10.4); Platelet Count 166 10^3/uL (130-400); Red Blood Cell Count 4.36 10^6/uL (4.70-6.10); Red Cell Dist. Width 14.1 % (11.5-14.5); White Blood Cell Count 9.2 10^3/uL (4.8-10.8)
[2024-07-13 04:30] LABS: INR 2.17; PT 24.7 Sec (11.4-14.6)
[2024-07-13 04:45] LABS: Blood Urea Nitrogen 27 mg/dl (9-20); Calcium 9.1 mg/dl (8.4-10.2); Carbon Dioxide 27 mmol/L (22-30); Chloride 102 mmol/L (98-107); Estimated Creatinine Clearance 112 ml/min; Glucose 126 mg/dl (70-99); Potassium 4.4 mmol/L (3.5-5.1); Sodium 137 mmol/L (135-145); eGFR > 60.00
[2024-07-13 08:19] VITALS: BP 127/74
[2024-07-13] MEDS: LIORESAL 5 MG PO ×2 (08:26→16:15)
[2024-07-13] MEDS: NEURONTIN 300 MG PO ×2 (08:26→16:15)
[2024-07-13] MEDS: TOPROL XL 100 MG PO (08:26)
[2024-07-13] MEDS: TAMBOCOR 100 MG PO (08:26)
[2024-07-13] MEDS: FLUSH (NSS) 1 FLUSH IV (08:27)
--- NOTE | 2024-07-13 09:35 | PTCARENOTE ---
Received patient this morning resting in bed eating breakfast. Dressing right groin is dry and intact. Patient medicated for bilateral knee pain with oxycodone as ordered, rated pain 7/10- post pain evaluation the patient states the pain medication
did help, but that the pain rating is still a 6/10. Ambulating in the room with his single point cane, gait is steady.
--- NOTE | 2024-07-13 10:24 | W.PN.CD ---
Today's Communication / Plan
-
d/c home
>30 minutes spent in the discharge of this patient
Impression / Plan
-
Paroxysmal atrial fibrillation and typical atrial flutter, status post MARY-guided cardioversion x2; pharmacological therapy with Flecainide and Metoprolol Succinate, oral anticoagulation with Warfarin (Eliquis failure)
-S/p Atrial fibrillation ablation with Pulsed-Field approach for pulmonary vein isolation and Left atrial appendage occlusion with Watchman implantation (31 mm Watchman FLX Pro left atrial appendage closure device) 07/12/24
-Right femoral sight well healed.
-f/u with Dr Watkins
-continue warfarin, bb and flecainide.
Hypertension chronic continue bb
CHF with recovered ef, euvolemic conitnue bb
Physical Exam
Vital Signs/Labs
Vital Signs
Temp Pulse Resp BP Pulse Ox
97.7 F 64 18 127/74 98
07/13/24 08:15 07/13/24 08:19 07/13/24 08:15 07/13/24 08:19 07/13/24 08:15
07/12/24 07/13/24 07/14/24
06:59 06:59 06:59
Actual Weight 92.986 kg
07/13/24 04:03
07/13/24 04:03
PT 24.7 Sec (11.4-14.6) H 07/13/24 04:03
INR 2.17 07/13/24 04:03
Physical Exam
Constitutional: No acute distress
Cardiovascular: Rhythm & rate is regular, JVD pressure is normal, Systolic murmur absent and Diastolic murmur absent
Respiratory: Respiratory effort normal, Lungs clear to auscul., Wheeze Absent, Crackles Absent and Rhonchi Absent
Neuro/Psych: AO x 3
Other: Cardiac Device Site (right groin with multiple access areas, soft well healed no hematoma)
Data Reviewed
-
Date of Service: July 13, 2024
EKG: Tracing Personally Visualized and interpreted (nsr with lafb) and Other (sinus)
[2024-07-13 11:51] VITALS: BP 119/71
[2024-07-13 16:14] VITALS: BP 106/63
--- NOTE | 2024-07-13 17:33 | PTCARENOTE ---
Reviewed discharge instructions with the patient and he states his understanding. Patient discharged home with his daughter.
== END 2024-07-13 17:42 | disposition home or self-care (01) | DRG 317 ==
LOC: IVU 08:06
PROVIDERS: Nurse Practitioner; ADMITTING PHYSICIAN Internal Medicine Cardiovascular Disease; FAMILY PHYSICIAN Family Medicine; OTHER PHYSICIAN Internal Medicine
PROC: 02L73DK Occlusion of Left Atrial Appendage with Intraluminal Device, Percutaneous Approach (ICD-10-PCS; 2024-07-12)
PROC: B24BZZ4 Ultrasonography of Heart with Aorta, Transesophageal (ICD-10-PCS; 2024-07-12)
PROC: 02583ZF Destruction of Conduction Mechanism using Irreversible Electroporation, Percutaneous Approach (ICD-10-PCS; 2024-07-12)
PROC: 02K83ZZ Map Conduction Mechanism, Percutaneous Approach (ICD-10-PCS; 2024-07-12)
PROC: 4A023FZ Measurement of Cardiac Rhythm, Percutaneous Approach (ICD-10-PCS; 2024-07-12)
PROC: 4A0234Z Measurement of Cardiac Electrical Activity, Percutaneous Approach (ICD-10-PCS; 2024-07-12)
DX: I48.0 Paroxysmal atrial fibrillation (principal); I50.42 Chronic combined systolic (congestive) and diastolic (congestive) heart failure; I48.3 Typical atrial flutter; I11.0 Hypertensive heart disease with heart failure; I51.3 Intracardiac thrombosis, not elsewhere classified; I25.10 Atherosclerotic heart disease of native coronary artery without angina pectoris; R73.03 Prediabetes; D18.03 Hemangioma of intra-abdominal structures; R00.1 Bradycardia, unspecified; N40.0 Benign prostatic hyperplasia without lower urinary tract symptoms; M19.90 Unspecified osteoarthritis, unspecified site; Z79.01 Long term (current) use of anticoagulants; Z79.891 Long term (current) use of opiate analgesic; Z79.899 Other long term (current) drug therapy
CPT/HCPCS: 33340; 36415; 75572; 80048; 80053; 85025; 85027; 85347; 85610; 86850; 86900; 86901; 93005; 93656; C1732; C1733; C1759; C1766; C1892; C1894; Q9967

== ENCOUNTER 2024-08-29 06:38 | Inpatient (IN) | payer MEDICARE, OTHER, SELFPAY ==
[2024-08-28 13:06] VITALS: BP 82/58
[2024-08-28 13:42] VITALS: BP 94/64
[2024-08-28 13:49] VITALS: BMI 25.6
[2024-08-28 14:00] VITALS: BP 90/66
[2024-08-28 14:13] LABS: % Basophils 0.4 % (0-2); % Eosinophils 2.5 % (0-6); % Immature Granulocytes 0.4 % (0-0.5); % Monocytes 12.5 % (1.7-9.3); % Neutrophils 69.2 % (42.2-75.2); Absolute Eosinophils 0.1 10^3/uL (0-0.7); Absolute Lymphocytes 0.8 10^3/uL (1.2-3.4); Absolute Monocytes 0.7 10^3/uL (0.1-0.6); Absolute Neutrophils 3.9 10^3/uL (1.4-6.5); Hematocrit 46.5 % (39.0-52.0); Hemoglobin 15.2 g/dL (13.0-18.0); Mean Corp Hgb Conc. 32.7 g/dL (33.0-37.0); Mean Corpuscular Hgb 28.9 pg (27.0-31.0); Mean Corpuscular Volume 88.4 fL (80.0-94.0); Nucleated Red Blood Cells % 0 % (-); Red Blood Cell Count 5.26 10^6/uL (4.70-6.10); Red Cell Dist. Width 14.4 % (11.5-14.5); White Blood Cell Count 5.6 10^3/uL (4.8-10.8)
[2024-08-28 14:18] LABS: INR 1.42; PT 17.6 Sec (11.4-14.6)
[2024-08-28 14:21] LABS: ALT (SGPT) 19 U/L (0-50); AST (SGOT) 40 U/L (17-59); Albumin 3.6 g/dl (3.5-5.0); Alkaline Phosphatase 78 U/L (38-126); Blood Urea Nitrogen 28 mg/dl (9-20); Calcium 8.6 mg/dl (8.4-10.2); Carbon Dioxide 28 mmol/L (22-30); Chloride 97 mmol/L (98-107); Estimated Creatinine Clearance 56 ml/min; Glucose 101 mg/dl (70-99); Potassium 4.3 mmol/L (3.5-5.1); Sodium 133 mmol/L (135-145); Total Bilirubin 0.8 mg/dl (0.2-1.3); Total Protein 6.4 g/dl (6.3-8.2); eGFR 47.23
[2024-08-28 14:27] LABS: Platelet Count 92 10^3/uL (130-400)
[2024-08-28] MEDS: NSS 1000 IV ×2 (14:50→21:19)
--- NOTE | 2024-08-28 14:58 | ED.GENMED ---
History of Present Illness
General
Chief Complaint: Weakness
Time Seen by Provider: 08/28/24 14:08
History of Present Illness
History of Present Illness:
64-year-old male with history of A-fib status post watchman's on Coumadin presenting to the emergency department for generalized weakness. Patient reports for the past 4 days has been feeling generally weak. Yesterday tried to get out of bed and
his legs gave out. He reports that he fell, struck his head. Denies loss of consciousness. Does note that he is coughing. Denies known sick contacts. Denies chest pain or difficulty breathing. Denies fever. Denies abdominal pain. Notes mild
nausea without vomiting or diarrhea. Denies focal weakness. Denies additional acute medical complaints
Past History
Past History
ED Past Medical History: Arrthythmia (Atrial fibrillation), Cancer (Skin CA) and Other (Colon polyps)
ED Past Surgical History: Orthopedic (Left ACL replacement, Meniscus repair, Left shoulder surgery. Left hip fracture repair) and Other (Hernia, Skin graft)
Social History
Tobacco: Non-smoker
Alcohol: None
Drug: None
Personal:
Living: with family
Phy Exam
Physical Exam
Physical Exam:
General: Well-appearing, no clinical signs of dehydration, nontoxic and in no acute distress
HEENT: protecting airway
Head: Small abrasion to forehead
Neck: appears supple
CV: Normal heart rate, regular rhythm
Resp: No accessory muscle use, no increased work of breathing, lungs clear to auscultation bilaterally
Abd: Soft and non-distended, no tenderness to palpation
Extremities: No deformities, no swelling, no erythema
Neuro: alert, no focal neurologic deficit
: deferred
Rectal: deferred
Psych: Normal affect
Skin: Intact
Course
Orders/Labs/Results
Orders:
Orders
08/28/24 13:12
EKG [Electrocardiogram (*1)] Urgent
Reason for Study: Fatigue / Weakness
EKG- Treatment ONCE
08/28/24 13:52
CT Head W/o Iv Contrast Urgent
Comment:
Reason For Exam: fall
08/28/24 14:01
COVID-19 Antigen Urgent
Source: Nasal Swab
Complete Blood Count/With Diff Urgent
Comprehensive Metabolic Panel Urgent
Creatine Phosphokinase Urgent
Comment: ADD ON
Prothrombin Time Urgent
Influenza A+B Rapid Molecular Urgent
SANDY Source: Nasal Swab
Specimen Description:
08/28/24 14:19
Add On- LAB Urgent
Tests Added?: cpk
08/28/24 14:37
0.9% Sodium Chloride 1000 ml [Nss] 1,000 ml IV BOLUS
CR Chest - 2 Views Urgent
Comment:
Reason For Exam: cough, weakness
Abnormal Lab Results
08/28/24
14:01
MCHC 32.7 L g/dL
(33.0-37.0)
Plt Count 92 L 10^3/uL
(130-400)
MPV 12.0 H fL
(7.4-10.4)
Absolute Lymphs (auto) 0.8 L 10^3/uL
(1.2-3.4)
Absolute Monos (auto) 0.7 H 10^3/uL
(0.1-0.6)
Lymphocytes % 15.0 L %
(20.5-51.1)
Monocytes % 12.5 H %
(1.7-9.3)
PT 17.6 H Sec
(11.4-14.6)
Sodium 133 L mmol/L
(135-145)
Chloride 97 L mmol/L
(98-107)
BUN 28 H mg/dl
(9-20)
Creatinine 1.6 H mg/dL
(0.7-1.3)
Glucose 101 H mg/dl
(70-99)
Creatine Kinase 212 H U/L
(55-170)
08/28/24 14:01
08/28/24 14:01
Vital Signs
Initial and Last Documented VS:
Initial Vital Signs
Temp Pulse Resp BP Pulse Ox
98.7 F 90 16 82/58 98
08/28/24 13:06 08/28/24 13:06 08/28/24 13:06 08/28/24 13:06 08/28/24 13:06
Last Documented Vital Signs
Temp Pulse Resp BP Pulse Ox
98.7 F 63 19 91/66 96
08/28/24 13:06 08/28/24 15:15 08/28/24 15:15 08/28/24 15:00 08/28/24 15:15
MDM/Problems Addressed
MDM/Problems Addressed:
64-year-old male with history of A-fib status post watchman's procedure on Coumadin presenting for weakness and fall. Vital signs on arrival are significant for mildly low blood pressure.
On exam patient is resting comfortably, no acute distress. Unremarkable cardiac and pulmonary exam, no increased work of breathing. Patient is currently afebrile, nontoxic. Regarding weakness, intact strength and sensation to bilateral upper and
lower extremities lower suspicion for central neurologic process. In the setting of cough, weakness, fatigue, suspect possible infectious quality to symptoms. Influenza is a consideration versus COVID. Pneumonia see consideration. Will obtain
viral swabs and chest x-ray imaging. Patient reports decreased p.o. intake in the past several days secondary to his symptoms. Will obtain laboratory analysis to evaluate for any signs of dehydration. Will start patient IV fluids. Given
patient's anticoagulation status and head strike, will obtain CT brain imaging.
15:00 - Patient is flu positive, again consistent with myriad of symptoms.
18:00 -CT negative. Labs unremarkable except mild ELVER. Consistent with mild dehydration. Attempt ambulate patient, however very unsteady, notes lightheaded feeling like he is going to pass out. For this reason we will admit to observation for
supportive therapy.
*Critical Care Note
Total Time (30-74mins, 75-104mins- exclusive of procedures): Not Applicable
ED Attending Note
-
Portions of this chart may have been created with voice recognition software.� Occasional wrong word or��sound alike� substitutions may have occurred due to the inherent limitations of voice recognition software.
Discharge Plan
Departure
Prescriptions:
No Action
oxycodone 15 mg Tablet
15 mg PO Q4HPRN PRN (Reason: Pain)
flecainide 100 mg Tablet
100 mg PO BID
gabapentin 300 mg Capsule
300 mg PO TID
baclofen 5 mg Tablet
5 mg PO TID
ferrous sulfate 325 mg (65 mg iron) Tablet
325 mg PO Q48H
diazepam 10 mg Tablet
10 mg PO HS
cholecalciferol (vitamin D3) [Vitamin D3] 50 mcg (2,000 unit) Tablet
100 mcg PO DAILY
metoprolol succinate 100 mg Tablet Extended Release 24 Hr
100 mg PO BID
warfarin 7.5 mg Tablet
7.5 mg PO MOTUWETHFR
warfarin 5 mg Tablet
5 mg PO SUSA
Referrals:
UNKNOWN - PT DOES,NOT KNOW [Family Provider] -
Interventions
Interventions:
*Risk Screen - Suicide Last Done: 08/28/24 13:06
*General Assessment Last Done: 08/28/24 13:49
*Neglect/Abuse Screening Last Done: 08/28/24 13:06
ED- Fall Risk Assessment Last Done: 08/28/24 13:51
*ED COVID-19 Vaccine History Last Done: 08/28/24 13:49
ED- Cardiac Assessment Last Done: 08/28/24 13:51
ED- Neurological Assessment Last Done: 08/28/24 13:51
ED- Pulmonary Assessment Last Done: 08/28/24 13:51
Discharge Date and Time
Print Language: PUERTO RICAN
[2024-08-28 15:00] VITALS: BP 91/66
[2024-08-28 15:05] LABS: COVID-19 Antigen Negative (Negative)
[2024-08-28 16:17] LABS: Creatine Phosphokinase 212 U/L (55-170)
--- NOTE | 2024-08-28 19:42 | HPS.HSE ---
Family Physician
-
Family Physician: NOT KNOW UNKNOWN - PT DOES
Chief Complaint
-
Weakness and falls
History of Present Illness
This is a 64-year-old with history of atrial fibrillation was recently status post ablation and Watchman procedure still on Coumadin presents to the emergency department following multiple falls at home. Found to have influenza.
Patient has bilateral knee replacement and chronic back pain who follows with physical therapy/rehab. He apparently had a fall on evening. He stated his legs just gave way bilaterally. He had trouble getting back to his feet and had to
use his arms and legs to pull himself up. This occurred twice again on Thursday as well as 3 times on Thursday so he decided come to the emergency department. He reported that he has not had anything to eat since Thursday because he was mostly laying
on his bed. He denies any trauma. With he did hit the side of his head on his bedpost. He denied any focal neurological deficits such as numbness tingling or focal weakness this is an in his upper extremities. He denies having any cough fevers
or chills. He does report a sick contact at rehab. Patient reports missing 2 doses of his Coumadin on Thursday and Thursday and he took a 7.5 mg just before coming to the emergency department today.
In the emergency department he was afebrile blood pressure was slightly low at 90/66 with a pulse of 63 satting 96% on room air. His CBC was unremarkable with a hemoglobin of 15.2 but platelet count of 92, INR was 1.4, chest x-ray was negative for
any acute infiltrates. CT of the head was negative for any acute intracranial process. Sodium was 133 rest of the electrolytes were within normal limits, creatinine was elevated at 1.6. CK was negative.
Medical History
Past Medical History
Past Medical History: Reports Arrhythmia (Proximal atrial fibrillation status post ablation and Watchman procedure for failed Eliquis anticoagulation), CHF (Recovered/preserved EF) and Other (History of renal infarct, mitral valve calcification,)
Past Surgical History: Reports Other (Right inguinal hernia repair, left hip fracture repair, meniscus repair of the right knee, robotic assisted laparoscopic Iesha repair of left inguinal hernia,)
Social History
Tobacco: Non-smoker
Alcohol: Occasional
Drug: None
Personal: Single
Living: Alone
Family History
Family History: Not pertinent
Allergies / Home Medications
Allergies reflects when Allergies were last updated in [employer].
Home Medications with original date entered in [employer]
Allergy/Medication List:
Allergies
Allergy/AdvReac Type Severity Reaction Status Date / Time
No Known Allergies Allergy Verified 07/10/24 12:48
Home Medications
flecainide 100 mg tablet 100 mg PO BID Arrhythmia 05/18/24
baclofen 5 mg tablet 5 mg PO TID spasm 06/13/24
gabapentin 300 mg capsule 300 mg PO TID neuropathic pain 06/13/24
diazepam 10 mg tablet 10 mg PO HS Sleep 06/30/24
ferrous sulfate 325 mg (65 mg iron) tablet 325 mg PO Q48H Supplement 06/30/24
metoprolol succinate 100 mg tablet,extended release 24 hr 100 mg PO BID Blood Pressure 06/30/24
warfarin 5 mg tablet 5 mg PO SUSA Blood Clot Prevention/Tx 06/30/24
celecoxib 200 mg capsule 200 mg PO DAILY 08/28/24
warfarin 5 mg tablet 7.5 mg PO MOTUWETHFR 08/28/24
Review of Systems
-
History Source: Patient
Constitutional: Reports Fatigue
EENT: Reports No Symptoms
Respiratory: Reports No Symptoms
Cardiac: Reports No Symptoms
Abdomen/GI: Reports No Symptoms
: Reports No Symptoms
Musculoskeletal: Reports No Symptoms
Skin: Reports No Symptoms
Neurological: Reports No Symptoms
Hematologic/Lymphatic: Reports No Symptoms
Psych: Reports No Symptoms
Physical Exam
Vital Signs
Vital Signs
Temp Pulse Resp BP Pulse Ox
98.7 F 63 19 91/66 96
08/28/24 13:06 08/28/24 15:15 08/28/24 15:15 08/28/24 15:00 08/28/24 15:15
Physical Exam
General: Well Developed, Well Nourished, No Apparent Distress and Comfortable
HEENT: NormoCephalic, Anicteric, Moist mucous membranes and Atraumatic
Respiratory: Clear
Cardiac: S1/S2 and Regular Rhythm
Breast: Deferred by me
GI: Soft, Non Tender, Non Distended and Normal Bowel Sounds
Rectal: Deferred by Provider
Genito-urinary: Deferred by me
Musculoskeletal: No Clubbing and No Cyanosis
Skin: Warm
Neuro: AO x 3 and Nonfocal/grossly intact
Hematologic/Lymphatic: No Lymphadenopathy
Psych: Calm
Laboratory Results
-
08/28/24 14:01
08/28/24 14:01
Laboratory Results
PT 17.6 Sec (11.4-14.6) H 08/28/24 14:01
INR 1.42 08/28/24 14:01
Total Bilirubin 0.8 mg/dl (0.2-1.3) 08/28/24 14:01
AST 40 U/L (17-59) 08/28/24 14:01
ALT 19 U/L (0-50) 08/28/24 14:01
Alkaline Phosphatase 78 U/L (38-126) 08/28/24 14:01
Data Reviewed
-
Diagnostic Radiology: Report Reviewed by me
CT Scan: Report Reviewed by me
Medical Tests (Nuc Med, Echo, EKG etc): Image Personally Visualized and interpreted
Lab Data: Labs Reviewed by me
Old Records: Reviewed
Impression/Plan
-
IMPRESSION:
64 M h/o afib s/p ablation + watchman in June after failure of Eliquis anticoagulation, now on coumadin pending repeat Echo for LA thrombus, comes in with weakness and multiple falls, found to have flu and ELVER. Does have chronic leg pain s/p
knee surgeries and has not been eaten since thursday following his fall and weakness. Xray clear. CT head w/o acute process. No cough, sob, fevers or chills.
PLAN:
1. Influenza - Mostly associated with weakness. No respiratory changes or febrile illness. Onset unclear about around 48 to 72 hours ago.
- admit to tele obs on flecainide
- supportive care for now, no indication for tamiflu
- iv fluids, pain control
- check orthostatics in am
- PT evaluation.
2. ELVER - Cr 1.6 up from 1.0. Low Na. Reports no po since thursday. BP slightly low
- IV fluids for now and reassess in am
- gabapentin to 300 daily for now
3. AFIB - s/p ablation and recent watchman still on AC. INR 1.4, missed 2 coumadin doses and took last dose today just before arrival
- continue inr 7.5 daily for now
- continue flecainide
- continue metoprolol succinate
DVT PPX - SCDs, on coumadin
Code status - Full Code
[2024-08-28 20:52] VITALS: BMI 25.4
[2024-08-28 20:59] VITALS: BP 99/63
[2024-08-28] MEDS: TOPROL XL PO (22:02)
[2024-08-28] MEDS: LIORESAL 5 MG PO (22:36)
[2024-08-28] MEDS: VALIUM 10 MG PO (22:36)
[2024-08-28] MEDS: TAMBOCOR 100 MG PO (22:36)
[2024-08-28 23:20] VITALS: BP 102/64
[2024-08-29] VITALS (8 sets, daily range): BP systolic 89–145; BP diastolic 53–93; PULSE 63–65; O2SAT 95–97
[2024-08-29] MEDS: NSS 1000 IV (06:42)
[2024-08-29 07:00] LABS: INR 1.63; PT 19.5 Sec (11.4-14.6)
[2024-08-29 07:14] LABS: Blood Urea Nitrogen 24 mg/dl (9-20); Calcium 8.1 mg/dl (8.4-10.2); Carbon Dioxide 24 mmol/L (22-30); Chloride 99 mmol/L (98-107); Estimated Creatinine Clearance 89 ml/min; Glucose 83 mg/dl (70-99); Sodium 134 mmol/L (135-145); eGFR > 60.00
[2024-08-29] MEDS: LIORESAL 5 MG PO ×3 (08:01→21:38)
[2024-08-29] MEDS: TOPROL XL 100 MG PO (08:01)
[2024-08-29] MEDS: NEURONTIN 300 MG PO ×3 (08:02→21:39)
[2024-08-29] MEDS: TYLENOL 1000 MG PO ×3 (08:02→21:41)
[2024-08-29] MEDS: TAMBOCOR 100 MG PO ×2 (08:03→21:39)
[2024-08-29 08:04] LABS: Hemoglobin 13.9 g/dL (13.0-18.0); Mean Corp Hgb Conc. 33.9 g/dL (33.0-37.0); Mean Corpuscular Hgb 29.7 pg (27.0-31.0); Mean Corpuscular Volume 87.6 fL (80.0-94.0); Platelet Count 87 10^3/uL (130-400); Red Blood Cell Count 4.68 10^6/uL (4.70-6.10); Red Cell Dist. Width 14.5 % (11.5-14.5); White Blood Cell Count 4.2 10^3/uL (4.8-10.8)
--- NOTE | 2024-08-29 10:44 | W.PN.HOSP.TC ---
Today's Communication/Plan
-
Resumed Coumadin
Start Tamiflu
Tylenol TID
f//w ID recommendations
Assessment / Plan
Assessment / Plan
Physical Exam
General: Well Developed, Well Nourished, No Apparent Distress and Comfortable
HEENT: NormoCephalic, Anicteric, Moist mucous membranes and Atraumatic
Respiratory: Clear
Cardiac: S1/S2 and Regular Rhythm
Breast: Deferred by me
GI: Soft, Non Tender, Non Distended and Normal Bowel Sounds
Rectal: Deferred by Provider
Genito-urinary: Deferred by me
Musculoskeletal: No Clubbing and No Cyanosis
Skin: Warm
Neuro: AO x 3 and Nonfocal/grossly intact
Hematologic/Lymphatic: No Lymphadenopathy
Psych: Calm
# Acute Influenza -
He reports cough, no hypoxia-
continues to have cough
Star oral Tamiflu
Add Tylenol TID to help with muscles aches/ bone pain
Chest x ray no acute findings
Consult ID, help appreciated
# Hyponatremia
Mild
No confusion
c/w diet
# ELVER - Cr 1.6
Creatinine came down
- s/p IV fluids
- Adjust gabapentin to 300 back to TID
# paroxysmal AFIB - s/p ablation and recent watchman still on AC. INR 1.6 from 1.4 , missed 2 Coumadin doses.
Back on Coumadin,
- continue flecainide
- continue metoprolol succinate
DVT PPX - SCDs, on Coumadin
Code status - Full Code
Total time spent to see the patient, examine the patient, review data and lab results, discuss treatment plan with patient, nursing staff around 55 minutes
Anticipated Discharge: 24 - 48 hours
Subjective/Interval History
-
Date of Service: August 29, 2024
He feels diffuse pain all over his body
No chest pain
Still cough
Objective Data
-
Labs:
Laboratory Results
08/29/24
06:34
WBC 4.2 L
Hgb 13.9
Hct 41.0
Plt Count 87 L
PT 19.5 H
INR 1.63
Sodium 134 L
Potassium 4.0
Chloride 99
Carbon Dioxide 24
BUN 24 H
Creatinine 1.0
Glucose 83
Calcium 8.1 L
Vital Signs:
Vital Signs
Temp Pulse Resp BP Pulse Ox
98.9 F 86 18 121/80 96
08/29/24 07:05 08/29/24 07:05 08/29/24 07:05 08/29/24 08:01 08/29/24 07:05
I&O
08/28/24 08/29/24 08/30/24
06:59 06:59 06:59
Output Total 300 / 300
Balance -300 / -300
--- NOTE | 2024-08-29 11:15 | CON.ID ---
Consultation
-
Date/Time Consultation Requested: August 29, 2024 0636
Date/Time Consultation Performed: August 29, 2024 1115
Requesting Provider: Dr. Genny Myers
Performing Provider: Dr. Angeli Ruiz
Reason for Consultation: Influenza
Chief Complaint / Past History
Chief Complaint
Weakness
History of Present Illness
64-year-old male with history of atrial fibrillation status post ablation and Watchman who presented to the hospital on August 28 due to multiple falls. He reports starting feeling little bit weak on night. On Thursday the weakness got
worse and he fell. Again on Thursday he fell twice. He has body aches. His legs will just give out. On Thursday it happened again and his daughter recommended going to the ER. No fever. He tested positive for influenza A. He was in ELVER which
quickly resolved. Chest x-ray negative. Today patient complains of cough which is dry. He has not improved. No fevers or chills. He never received the flu shot.
Past History
Additional Past Medical History:
Paroxysmal atrial fibrillation status post ablation and Watchman
History of renal infarct
Chronic back pain
Additional Past Surgical History:
Bilateral total knee replacements
right inguinal hernia repair
Left hip fracture repair
Right knee meniscus repair
Left inguinal hernia repair
Allergy History:
No Known Allergies Allergy (Verified 07/10/24 12:48)
Medications Reviewed: Yes
Current Antibiotics:
None
Social History
Tobacco: Non-Smoker
Alcohol: Occasional
Drug: None
Living: Alone
Family History
Family History: Not Pertinent
Review of Systems
Review of Systems
General: Change in Appetite; Negative Fever or Chills
HEENT: Negative Headache or Pharyngitis
Cardiovascular: Negative Chest Pain or Dyspnea
Respiratory: Cough; Negative Dyspnea or Sputum Production
Gasteroenterology: Negative Nausea, Vomiting or Diarrhea
Genital / Urological: Negative Dysuria or Flank Pain
Endocrine: Weakness and Fatigue
Musculoskeletal: Myalgias
All systems: All other systems were reviewed and were negative
Vital Signs
Temp Pulse Resp BP Pulse Ox
98.9 F 86 18 121/80 96
08/29/24 07:05 08/29/24 07:05 08/29/24 07:05 08/29/24 08:01 08/29/24 07:05
Physical Exam
Physical Exam
Constitutional: Comfortable
Head: Other (No frontal or max or sinus tenderness.)
Eyes: No Conjunctival Hemorrhage and Sclera Anicteric
Cardiovascular: Regular Rate and S1/S2
Pulmonary: Clear
Gastrointestinal: Soft, Non Tender, Non Distended and Normal Bowel Sounds
Genito-Urinary: Negative CVA Tenderness
Extremities: Negative Edema
Neurological: AO x 3
Lab / Diagnostic Study Results
08/29/24 06:34
08/29/24 06:34
Abs Immat Gran (auto) 0.0 10^3/uL (0-0.05) 08/28/24 14:01
Absolute Neuts (auto) 3.9 10^3/uL (1.4-6.5) 08/28/24 14:01
Absolute Lymphs (auto) 0.8 10^3/uL (1.2-3.4) L 08/28/24 14:01
Absolute Monos (auto) 0.7 10^3/uL (0.1-0.6) H 08/28/24 14:01
Absolute Basos (auto) 0.0 10^3/uL (0-0.2) 08/28/24 14:01
Immature Gran % 0.4 % (0-0.5) 08/28/24 14:01
Neutrophils % 69.2 % (42.2-75.2) 08/28/24 14:01
Lymphocytes % 15.0 % (20.5-51.1) L 08/28/24 14:01
Monocytes % 12.5 % (1.7-9.3) H 08/28/24 14:01
Eosinophils % 2.5 % (0-6) 08/28/24 14:01
Basophils % 0.4 % (0-2) 08/28/24 14:01
PT 19.5 Sec (11.4-14.6) H 08/29/24 06:34
INR 1.63 08/29/24 06:34
Microbiology Results
Micro:
08/28/24 14:01 Influenza Types A & B (MARCIAL) - Final
Nasal Swab Influenza A Positive, NAAT
08/28/24 CXR: No acute cardiopulmonary process.
08/28/[address]: No acute intracranial abnormality noted.
Assessment / Plan
# Influenza A infection
# Profound weakness, dry cough
# Acute Leukopenia and thrombocytopenia - likrly due to influenza
# hx pAfib
- Unvaccinated status against influenza
- CXR no infiltrate
- Treat with oseltamivir 75mg po bid x 5 days.
- Follow cbc
[2024-08-29] MEDS: TAMIFLU 75 MG PO ×2 (12:16→21:40)
--- NOTE | 2024-08-29 12:47 | CM ---
CM met with pt bedside
Pt resides alone in a 2SH with 2 YAD[address], 15 steps to 2nd floor
Pt is indep at baseline, pt works from home
He has a SPC and WW from prior knee surgeries for use as needed
Denies financial insecurities
PCP- does not have a PCP, resident clinic info placed in dc folder per pt request
Rx- [facility] [address]
He will coordinate a ride home through dtr
PT/OT recs- pt would like to see how he is doing on day of dc to determine
He will need to be set up with a PCP if VN on dc
Discharge Disposition- home, follow for VN needs, will need new PCP
[2024-08-29] MEDS: COUMADIN 7.5 MG PO (17:08)
[2024-08-29] MEDS: VALIUM 10 MG PO (21:39)
[2024-08-29] MEDS: TOPROL XL PO (21:43)
[2024-08-30 00:26] VITALS: BP 107/66
--- NOTE | 2024-08-30 00:36 | W.PN.UPDATE ---
Update Note
Progress Note Update
Notified by RN,�patient back in afib HR 63, with brief episodes of bradycardia w/HR in 30's, occasional pauses -longest 2.5 seconds, BP 103/63, afebrile, on room air, pulsox 95%. Patient denies chest pain, SOB, dizziness, n/v.�
EKG showed Critical test result: Long QTc
Atrial flutter with 2:1 AV conduction. Left axis deviation, Pulmonary disease pattern,�prolonged QTc (577).
Discontinued PRN QT prolonging medications.�Monitored overnight,�Cardiology consulted, followed by [facility].
(Of note: One 07/12/24 patient s/p Atrial fibrillation ablation with Pulsed-Field approach for pulmonary vein isolation and Left atrial appendage occlusion with Watchman implantation (31 mm Watchman FLX Pro left atrial appendage closure device).
--- NOTE | 2024-08-30 01:30 | PTCARENOTE ---
Patient converted to A. Flutter/A.Fib. from Sinus Bradycardia that was noted on tele monitor. Patient asymptomatic. Patient does have short moments where he goes back to NSR. QTC prolonged on EKG. RG Luo made aware. RG Luo to let
Cardiology know about EKG. Will continue to monitor closely.
[2024-08-30 03:30] VITALS: BP 114/78
--- NOTE | 2024-08-30 04:42 | PTCARENOTE ---
Patient began having some episodes of bradycardia as low as the 30s. Not sustaining, having some pauses, the longest is 2.5 second pause. JOURNEYMAN WIREMAN Arlene Luo notified. Blood pressure was 107/66 and heart rate was 39. JOURNEYMAN WIREMAN put in cardiology consult.
Will continue to monitor.
[2024-08-30 06:40] LABS: INR 1.83; PT 21.3 Sec (11.4-14.6)
[2024-08-30 06:55] LABS: Blood Urea Nitrogen 23 mg/dl (9-20); Calcium 8.7 mg/dl (8.4-10.2); Carbon Dioxide 29 mmol/L (22-30); Chloride 102 mmol/L (98-107); Estimated Creatinine Clearance 89 ml/min; Glucose 87 mg/dl (70-99); Potassium 4.3 mmol/L (3.5-5.1); Sodium 140 mmol/L (135-145); eGFR > 60.00
[2024-08-30 07:46] VITALS: BP 130/72
--- NOTE | 2024-08-30 07:58 | CON.CAR ---
Consultation
Consultation Request
Date/Time Consultation Requested: 08/30/2024 00:25
Date/Time Consultation Performed: 08/30/2024 07:50
Requesting Provider: RG Eddy
Performing Provider: RG Light for Dr. Van
Reason for Consultation: Bradycardia, paroxysmal atrial fibrillation, pauses
Medical History
-
Chief Complaint: Weakness
History of Present Illness:
Rene Nance is a 64-year-old male (known to Dr. Watkins and Dr. 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
the emergency department with a chief complaint of weakness. He was found to be positive for influenza A. He had a fall associated with his weakness. He struck his head but denied LOC. Head CT stable. On 07/12/2024 he underwent atrial
fibrillation ablation and watchman placement. He is currently on warfarin. He had no complaints overnight while in atrial fibrillation/flutter.
Past Medical History
Past Medical History: Arrhythmias (Paroxysmal atrial fibrillation, typical atrial flutter), CHF (Cardiomyopathy, unspecified) and Other (Renal infarct, prediabetes)
Past Surgical History: Orthopedic
Social History
Tobacco: Non-Smoker
Alcohol: None
Employment: Employed
Family History
Family History: Early CAD (Father with CABG in 40s and in 50s.)
Allergies / Home Medications
Allergy/AdvReac Type Severity Reaction Status Date / Time
No Known Allergies Allergy Verified 07/10/24 12:48
�Medication �Instructions �Recorded �Confirmed �Type
flecainide 100 mg tablet 100 mg PO BID Arrhythmia 05/18/24 08/28/24 History
baclofen 5 mg tablet 5 mg PO TID spasm 06/13/24 08/28/24 History
gabapentin 300 mg capsule 300 mg PO TID neuropathic pain 06/13/24 08/28/24 History
diazepam 10 mg tablet 10 mg PO HS Sleep 06/30/24 08/28/24 History
ferrous sulfate 325 mg (65 mg 325 mg PO Q48H Supplement 06/30/24 08/28/24 History
iron) tablet
metoprolol succinate 100 mg 100 mg PO BID Blood Pressure 06/30/24 08/28/24 History
tablet,extended release 24 hr
warfarin 5 mg tablet 5 mg PO SUSA Blood Clot 06/30/24 08/28/24 History
Prevention/Tx
celecoxib 200 mg capsule 200 mg PO DAILY 08/28/24 08/28/24 History
warfarin 5 mg tablet 7.5 mg PO MOTUWETHFR 08/28/24 08/28/24 History
Physical Exam
Vital Signs
Temp Pulse Resp BP Pulse Ox
97.5 F 59 16 130/72 98
08/30/24 07:46 08/30/24 07:46 08/30/24 07:46 08/30/24 07:46 08/30/24 07:46
Lab Results
08/29/24 06:34
08/30/24 05:54
Impression / Plan
-
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
department with a chief complaint of weakness. 07/12/2024 he underwent atrial fibrillation ablation and watchman placement -> Flu A +
Primary builder operator: Dr. Watkins
EP: Dr. Nielson
Paroxysmal atrial fibrillation, typical atrial flutter
-Not surprising he is back in arrhythmia given his acute illness
-He is not having significant pauses, he is not having significant slow rates
-Ablation 07/12/2024
-Oral Anticoagulation: Warfarin, INR subtherapeutic, Watchman 31 mm placed 07/12/2024
-[id number]: Score at least 3 (Heart failure, renal infarct, age 65-74)
Prolonged QTc, this was incorrectly read on the EKG, will require manual assessment
ELVER, resolved
-Poor oral intake for 3 days prior to admission
-Resolved with IV fluids
Influenza A, on Tamiflu, per ID/primary
Weakness with fall, in the setting of influenza A
-Struck head without LOC, head CT stable, INR 1.42 on admission
Prior renal infarct
Prediabetes
[2024-08-30] MEDS: TYLENOL 1000 MG PO (08:36)
[2024-08-30] MEDS: LIORESAL 5 MG PO (08:36)
[2024-08-30] MEDS: TAMBOCOR 100 MG PO (08:37)
[2024-08-30] MEDS: TAMIFLU 75 MG PO (08:37)
[2024-08-30] MEDS: TOPROL XL 100 MG PO (08:37)
[2024-08-30] MEDS: NEURONTIN 300 MG PO (08:37)
--- NOTE | 2024-08-30 08:50 | W.PN.HOSP.TC ---
Today's Communication/Plan
-
dc planning
Assessment / Plan
Assessment / Plan
Physical Exam
General: Well Developed, Well Nourished, No Apparent Distress and Comfortable
HEENT: NormoCephalic, Anicteric, Moist mucous membranes and Atraumatic
Respiratory: Clear
Cardiac: S1/S2 and Regular Rhythm this morning
GI: Soft, Non Tender, Non Distended and Normal Bowel Sounds
Rectal: Deferred by Provider
Genito-urinary: Deferred by me
Musculoskeletal: No Clubbing and No Cyanosis
Skin: Warm
Neuro: AO x 3 and Nonfocal/grossly intact
Hematologic/Lymphatic: No Lymphadenopathy
Psych: Calm
# Acute Influenza -
He reports feeling better, less cough, no hypoxia-
Started oral Tamiflu
Added Tylenol TID to help with muscles aches/ bone pain
Chest x ray no acute findings
Consulted ID, help appreciated
# Acute Leukopenia and thrombocytopenia - likrly due to influenza
# Hyponatremia
Mild
No confusion
c/w diet
# ELVRE - Cr 1.6
Creatinine came down
- s/p IV fluids
- Adjust gabapentin to 300 back to TID
# paroxysmal AFIB - s/p ablation and recent watchman still on AC. INR 1.8.
Back on Coumadin,
He had runs of afib/flutter, currently in SR
- continue flecainide
- continue metoprolol succinate
DVT PPX - SCDs, on Coumadin
Code status - Full Code
Total discharge time spent to see the patient, examine the patient, review data and lab results, discuss discharge plan with patient, nursing staff around 65 minutes
Anticipated Discharge: Today
Subjective/Interval History
-
Date of Service: August 30, 2024
No chest pain
No sob
No fevers
Objective Data
-
Labs:
Laboratory Results
08/30/24
05:54
PT 21.3 H
INR 1.83
Sodium 140
Potassium 4.3
Chloride 102
Carbon Dioxide 29
BUN 23 H
Creatinine 1.0
Glucose 87
Calcium 8.7
Vital Signs:
Vital Signs
Temp Pulse Resp BP Pulse Ox
97.5 F 59 16 130/72 98
08/30/24 07:46 08/30/24 07:46 08/30/24 07:46 08/30/24 07:46 08/30/24 07:46
I&O
08/29/24 08/30/24 08/31/24
06:59 06:59 06:59
Intake Total 1530 / 1530
Output Total 300 / 300 1500 / 1500 280 / 280
Balance -300 / -300 30 / 30 -280 / -280
--- NOTE | 2024-08-30 10:25 | CM ---
CM reviewed ramo and noted dc order
Bedside meeting with pt
His dtr will transport home
IMM verbally completed- copy provided
Pt declined immediate visit to resident clinic/VN
Resident clinic info in dc folder as pt without PCP
Discharge Disposition- home, no needs- dtr transport (approx 1300 pickup)
[2024-08-30 12:42] VITALS: BP 106/63
--- NOTE | 2024-08-30 12:55 | W.DCSUMMARY ---
Discharge Summary
Discharge Data
Date of Admission: 08/29/24
Date of Discharge: 08/30/24
-
Pending Results: No
Hospital Course
64 years old male presented to the emergency department with a chief complaint of weakness. He was found to be positive for influenza A. He had a fall associated with his weakness, body aches. He struck his head but denied loss of consciousness.
Head CT stable. Patient was admitted for symptomatic and supportive care. He was seen by infectious diseases doctor. He was started on Tamiflu with good response. Patient felt better and tolerated diet. Patient was noted to have runs of
nonsustained atrial fibrillation/flutter. He was maintained on warfarin. Cardiology was consulted and recommended to continue current regimen of Toprol and flecainide. Patient remained in sinus rhythm without shortness of breath or hypoxia. He
remained hemodynamically stable was discharged home in a stable condition.
Discharge Plan
-
Patient Disposition: Home (Routine Discharge)
Discharge Diagnosis/Procedures: Influenza A infection, continue Tamiflu
Diet: As tolerated
Referrals:
UNKNOWN - PT DOES,NOT KNOW [Family Provider] -
Prescriptions:
New
oseltamivir [Tamiflu] 75 mg capsule
75 mg PO BID Qty: 7 0RF
Rx Instructions:
Patient started Tamiflu in hospital, needs 7 more doses to finish 5 days course.
Continued
flecainide 100 mg Tablet
100 mg PO BID
gabapentin 300 mg Capsule
300 mg PO TID
baclofen 5 mg Tablet
5 mg PO TID
ferrous sulfate 325 mg (65 mg iron) Tablet
325 mg PO Q48H
diazepam 10 mg Tablet
10 mg PO HS
metoprolol succinate 100 mg Tablet Extended Release 24 Hr
100 mg PO BID
warfarin 5 mg Tablet
5 mg PO SUSA
celecoxib 200 mg Capsule
200 mg PO DAILY
warfarin 5 mg Tablet
7.5 mg PO MOTUWETHFR
Discharge Orders:
Discharge Patient (As Directed); Ordered 08/30/24
Ordered By: Greg Myers
Discharge Date and Time
Discharge Date/Time: 08/30/24 13:30
Print Language: NIGERIEN
== END 2024-08-30 13:30 | disposition home or self-care (01) | DRG 194 ==
LOC: 3 WEST ACU 06:38
PROVIDERS: Emergency Medicine; ADMITTING PHYSICIAN Internal Medicine; ATTENDING PHYSICIAN Internal Medicine; CONSULT PHYSICIAN Internal Medicine Cardiovascular Disease; EMERGENCY PHYSICIAN Student in an Organized Health Care Education/Training Program; OTHER PHYSICIAN Internal Medicine Infectious Disease
PROC: 3E02340 Introduction of Influenza Vaccine into Muscle, Percutaneous Approach (ICD-10-PCS; 2024-08-30)
DX: J10.1 Influenza due to other identified influenza virus with other respiratory manifestations (principal); E87.1 Hypo-osmolality and hyponatremia; N17.9 Acute kidney failure, unspecified; I48.3 Typical atrial flutter; I42.9 Cardiomyopathy, unspecified; I48.0 Paroxysmal atrial fibrillation; R29.6 Repeated falls; G89.29 Other chronic pain; M54.9 Dorsalgia, unspecified; R73.03 Prediabetes; S09.90XA Unspecified injury of head, initial encounter; W01.10XA Fall on same level from slipping, tripping and stumbling with subsequent striking against unspecified object, initial encounter; Z20.822 Contact with and (suspected) exposure to COVID-19; Z95.818 Presence of other cardiac implants and grafts; Z96.653 Presence of artificial knee joint, bilateral; Z82.49 Family history of ischemic heart disease and other diseases of the circulatory system; Z79.899 Other long term (current) drug therapy; Z79.01 Long term (current) use of anticoagulants; Z23 Encounter for immunization
CPT/HCPCS: 70450; 71046; 80048; 80053; 82550; 83735; 85025; 85027; 85610; 87502; 87811; 93005; 97162; 97166; 99285

== ENCOUNTER 2024-09-08 10:13 | Inpatient (IN) | payer MEDICARE, OTHER, SELFPAY ==
[2024-09-07] VITALS (20 sets, daily range): BP systolic 94–155; BP diastolic 59–91; PULSE 53–65; O2SAT 95–97; BMI 25.7
--- NOTE | 2024-09-07 03:26 | ED.GENMED ---
History of Present Illness
General
Chief Complaint: Generalized Pain
Time Seen by Provider: 09/07/24 02:58
History of Present Illness
History of Present Illness:
64-year-old male presents to the emergency department after fall. He states that he is unsteady on his feet and unable to ambulate safely. He lives alone. He states that he has had several falls over the last few days.
Past History
Past History
ED Past Medical History: Arrthythmia (Atrial fibrillation), Cancer (Skin CA) and Other (Colon polyps)
ED Past Surgical History: Orthopedic (Left ACL replacement, Meniscus repair, Left shoulder surgery. Left hip fracture repair) and Other (Hernia, Skin graft)
Social History
Tobacco: Non-smoker
Alcohol: None
Drug: None
Personal:
Living: with family
Phy Exam
General Physical Exam
General Presentation: moderate distress
General Skin: warm and dry
General Habitus: normal
General Mental: alert
General Hydration: appears well hydrated
ENT Exam
ENT Exam: EOMI, pharynx normal, neck supple and normocephalic
Eye Exam
Eye Exam: PERRL, cornea clear and conjunctiva normal
Cardiovascular Exam
Cardiovascular Exam: regular rate/rhythm, no JVD and no carotid bruit
Pulmonary Exam
Pulmonary Exam: lungs clear, no respiratory distress, no rales, no crackles, no rhonchi, no stridor, no wheezing and no cough
Gastrointestinal Exam
Gastrointestinal Exam: normal bowel sounds, non tender, soft, no organomegaly, no pulsatile mass and non distended
Neurological Exam
Neurological Exam: alert, oriented x3, no motor deficits and speech normal
Musculoskeletal Exam
Musculoskeletal Exam: full ROM and no edema
Skin Exam
Skin Exam: normal color and warm/dry
Psychiatric Exam
Psychiatric Exam: normal mood/affect
Course
Orders/Labs/Results
Orders:
Orders
09/07/24 03:23
C-Reactive Protein Urgent
Comment: ADD ON
Complete Blood Count/With Diff Urgent
Comprehensive Metabolic Panel Urgent
Lipase Urgent
PTT Urgent
Prothrombin Time Urgent
09/07/24 03:25
CT Cervical Spine W/o Iv Contr Urgent
Comment:
Reason For Exam: fall
CT Head W/o Iv Contrast Urgent
Comment:
Reason For Exam: fall
09/07/24 03:[address] [CT Chest W/o Iv Contrast] Urgent
Comment:
Reason For Exam: fall
09/07/24 04:33
0.9% Sodium Chloride 1000 ml [Nss] 1,000 ml IV 250 mls/hr
09/07/24 05:16
Urinalysis Reflex To Culture Urgent
Date Specimen was Collected: 09/07/24
Time Specimen was Collected: 05:14
Urine Microscopic Reflex Cult Urgent
09/07/24 05:59
Diazepam [Valium] 5 mg PO NOW STA
09/07/24 06:00
Admit/Transfer Patient As Directed
Co-Sign Provider:
Level of Care: Observation services
Assign to:: Telemetry
Physician / Group: George
Diagnosis: Neck Pain / Ambulatory Dysfunction / Ataxia
Reason for Telemetry: CVA/TIA
Date to Stop Telemetry: 09/10/24
Time to Stop Telemetry: 11:00
Regular
At Your Request: Full Participation
Does patient need a safe tray?: No
PRN Pain Medication Management As Directed
May give lesser potent ordered pain med per pt: Yes
preference::
Protocol:: Medication orders for pain may be administered in a
manner that supports deferring to patient preference
when the pt is:
- Requesting an ordered lesser potent pain medication.
Least to most potent pain medications are defined
as: acetaminophen < NSAID < tramadol < opioids
(morphine, oxycodone, hydromorphone).
- Requesting a lesser dose of the same medication IF
ORDERED.
- Requesting a less intrusive route of administration
if both routes are prescribed by the provider (PO <
IV).
09/07/24 06:01
Code Status As Directed
Resuscitation Status: Full Code
09/07/24 06:17
Case Management Consult ONCE
Case Management Consult: Discharge Planning
09/07/24 07:00
Flush (0.9% Sodium Chloride) [Flush (Nss)] See Dose Instructions IV PER PROTOCOL
09/07/24 07:41
Acetaminophen [Tylenol] 650 mg PO Q4HPRN PRN
HYDROmorphone [Dilaudid] 0.5 mg IV Q4HPRN PRN
Lactated Ringers [Lr] 1,000 ml IV 100 mls/hr
09/07/24 07:41
Consult Notification Routine
Specialty to Notify: Neurology
Date consulting provider notified: 09/07/24
Time consulting provider notified: 07:45
Notified:: Provider
NEUROLOGY CONSULT Routine
Consulting Provider: Henrry Castaneda
Was physician already notified: No
Reason for consult: Neck Pain / Ataxia
Activity As Directed
Activity Level: Ambulate
With Assistance
Bladder Scan As Directed
Follow Bladder Retention/Intermittent Cath Algorithm?: Yes
PRN if no void in __ hours: 6
Frequency: Per Retention Algorithm
If Bladder Scan Result >: 400
then:: Straight cath
EKG with chest pain [ECG as needed] As Directed
ECG as needed for:: Chest Pain
Heat Application As Directed
Apply heat therapy device to (location):: Neck
Device Frequency setting:: 20 minute cycles
Device temperature setting:: Moderate: 100 F (38 C)
I/O [Intake/ Output] As Directed
Frequency: Per unit guidelines
Neurological Checks As Directed
Frequency: q4h
Orthostatic Vital Signs As Directed
Orthostatic VS Frequency: BID
Pneumatic Compression Sleeves As Directed
Type: Knee high
Straight Cath As Directed
Frequency: Per Retention Algorithm
Additional Instructions: straight cath as needed per acute urinary retention algorithm for 24 hrs
Additional Instructions: for bladder scan greater than 400 mL
Vital Signs As Directed
Frequency: Per unit guidelines
Weight As Directed
Frequency: Daily
Oxygen Therapy [O2 Therapy] [RESP] Routine
Titrate/Wean O2 to maintain O2 sat greater than (%): 94
Ot Eval And Treat Routine
PT Consult [Pt Eval And Treat] Routine
Activity Level: Ambulate
With Assistance
DX Deep Vein Thrombosis Video Routine
09/07/24 08:00
Flecainide [Tambocor] 100 mg PO BID
Gabapentin [Neurontin] 300 mg PO TID
Metoprolol Xl [Toprol Xl] 100 mg PO BID
09/07/24 09:05
Baclofen [Lioresal] 5 mg PO TID
09/07/24 10:00
Celecoxib [Celebrex] 200 mg PO DAILY
09/07/24 10:52
Add On- LAB Urgent
Tests Added?: CRP, ESR
09/07/24 12:33
MR Cervical Spine Without & W Routine
Comment: limited ROM, pain with ROM. on Coumadin/fall
Reason For Exam: evaluate severe neck pain
Recent pill cam endoscopy?: No
09/07/24 12:36
HYDROmorphone [Dilaudid] 0.5 mg IV Q4HPRN PRN
Oxycodone [Roxicodone] 5 mg PO Q4HPRN PRN
09/07/24 13:06
Erythrocyte Sed Rate Urgent
09/07/24 22:00
Diazepam [Valium] 10 mg PO HS
09/08/24 05:55
Basic Metabolic Panel IN AM
Complete Blood Count/No Diff IN AM
Prothrombin Time IN AM
09/08/24 06:00
EKG [Electrocardiogram (*1)] IN AM
Reason for Study: Chest Pain
09/09/24 06:00
Prothrombin Time IN AM
09/10/24 06:00
Prothrombin Time IN AM
09/10/24 11:00
DC Protocol for Telemetry ONCE
09/11/24 06:00
Prothrombin Time IN AM
Abnormal Lab Results
09/07/24 09/07/24 09/07/24
05:16 13:06
RBC
Hgb
Hct
MPV 11.3 H fL
(7.4-10.4)
Abs Immat Gran (auto) 0.1 H 10^3/uL
(0-0.05)
Absolute Neuts (auto) 7.4 H 10^3/uL
(1.4-6.5)
Absolute Monos (auto) 1.1 H 10^3/uL
(0.1-0.6)
Immature Gran % 0.7 H %
(0-0.5)
Lymphocytes % 13.6 L %
(20.5-51.1)
Monocytes % 11.3 H %
(1.7-9.3)
ESR 21 H mm/hour
(0-20)
PT 40.3 H Sec
(11.4-14.6)
APTT 70.3 H Sec
(23.4-35.0)
Carbon Dioxide
BUN 24 H mg/dl
(9-20)
Glucose 105 H mg/dl
(70-99)
C-Reactive Protein 64.30 H mg/L
(0.0-10.00)
Total Protein 6.2 L g/dl
(6.3-8.2)
Urine Ketones 2+ A
(Negative)
Ur Occult Blood Reflex 4+ A
(Negative)
Urine RBC 26-30 A /HPF
(0-2)
Urine Bacteria (Reflex) Few A
(Negative)
Urine Albumin (Reflex) 1+ A
(Neg - Trace)
09/08/24
05:55
RBC 4.10 L 10^6/uL
(4.70-6.10)
Hgb 12.1 L g/dL
(13.0-18.0)
Hct 35.7 L %
(39.0-52.0)
MPV 11.9 H fL
(7.4-10.4)
Abs Immat Gran (auto)
Absolute Neuts (auto)
Absolute Monos (auto)
Immature Gran %
Lymphocytes %
Monocytes %
ESR
PT 37.2 H Sec
(11.4-14.6)
APTT
Carbon Dioxide 31 H mmol/L
(22-30)
BUN
Glucose
C-Reactive Protein
Total Protein
Urine Ketones
Ur Occult Blood Reflex
Urine RBC
Urine Bacteria (Reflex)
Urine Albumin (Reflex)
09/08/24 05:55
09/08/24 05:55
Vital Signs
Initial and Last Documented VS:
Initial Vital Signs
Temp Pulse Resp BP Pulse Ox
97.9 F 78 20 134/90 97
09/07/24 02:54 02/26/25 02:54 09/07/24 02:54 09/07/24 02:54 09/07/24 02:54
Last Documented Vital Signs
Temp Pulse Resp BP Pulse Ox
97.6 F 56 18 110/63 95
09/08/24 20:18 09/08/24 20:18 09/08/24 20:18 09/08/24 20:18 09/08/24 20:18
*Critical Care Note
Total Time (30-74mins, 75-104mins- exclusive of procedures): Not Applicable
Update Note
Update Note:
CT head, C-spine, and chest without IV contrast
IMPRESSION:
CT HEAD: No hemorrhage or other evidence of trauma.
CT CERVICAL SPINE: No acute osseous trauma. Degeneration. Craniocervical junction intact. Vertebral body heights are preserved.
CT CHEST: Lungs clear aside from dependent atelectasis. No pneumothorax or pleural effusion. Central airways patent. Benign variant right azygos lobe. Limited assessment of the aorta and mediastinum without IV contrast. Left atrial appendage
occlusion device. No acute osseous trauma.
Finalized at 4:30 AM EST
ED Attending Note
-
Portions of this chart may have been created with voice recognition software.� Occasional wrong word or��sound alike� substitutions may have occurred due to the inherent limitations of voice recognition software.
Discharge Plan
Departure
Patient Disposition: Admit
Date of Disposition: 09/07/24
Time of Disposition: 06:16
Admit to: Med/Surg
Presentation/result/management discussed w/ accepting MD/DO: Hospitalist
Condition: Good
Discharge Problem:
Weakness, Falls
Interventions
Interventions:
*Risk Screen - Suicide Last Done: 09/07/24 02:54
*General Assessment Last Done: 09/07/24 03:37
*Neglect/Abuse Screening Last Done: 09/07/24 02:54
ED- Fall Risk Assessment Last Done: 09/07/24 21:16
*ED COVID-19 Vaccine History Last Done: 09/07/24 03:37
*Nursing Disposition Last Done: 09/07/24 21:16
Discharge Date and Time
Discharge Date/Time: 09/07/24 21:17
[2024-09-07 03:48] LABS: % Basophils 0.1 % (0-2); % Eosinophils 0.1 % (0-6); % Immature Granulocytes 0.7 % (0-0.5); % Lymphocytes 13.6 % (20.5-51.1); % Monocytes 11.3 % (1.7-9.3); % Neutrophils 74.2 % (42.2-75.2); Absolute Immature Granulocytes 0.1 10^3/uL (0-0.05); Absolute Lymphocytes 1.4 10^3/uL (1.2-3.4); Absolute Monocytes 1.1 10^3/uL (0.1-0.6); Absolute Neutrophils 7.4 10^3/uL (1.4-6.5); Mean Corp Hgb Conc. 33.3 g/dL (33.0-37.0); Mean Corpuscular Hgb 29.2 pg (27.0-31.0); Mean Corpuscular Volume 87.7 fL (80.0-94.0); Mean Platelet Volume 11.3 fL (7.4-10.4); Nucleated Red Blood Cells % 0 % (-); Platelet Count 183 10^3/uL (130-400); Red Blood Cell Count 4.79 10^6/uL (4.70-6.10); Red Cell Dist. Width 14.1 % (11.5-14.5)
[2024-09-07 04:00] LABS: INR 4.23; PT 40.3 Sec (11.4-14.6)
[2024-09-07 04:01] LABS: APTT 70.3 Sec (23.4-35.0)
[2024-09-07 04:15] LABS: ALT (SGPT) 16 U/L (0-50); AST (SGOT) 25 U/L (17-59); Albumin 3.5 g/dl (3.5-5.0); Alkaline Phosphatase 81 U/L (38-126); Blood Urea Nitrogen 24 mg/dl (9-20); Calcium 8.9 mg/dl (8.4-10.2); Carbon Dioxide 28 mmol/L (22-30); Chloride 101 mmol/L (98-107); Estimated Creatinine Clearance 99 ml/min; Glucose 105 mg/dl (70-99); Lipase 148 U/L (23-300); Potassium 3.7 mmol/L (3.5-5.1); Sodium 137 mmol/L (135-145); Total Bilirubin 0.7 mg/dl (0.2-1.3); Total Protein 6.2 g/dl (6.3-8.2); eGFR > 60.00
[2024-09-07] MEDS: NSS 1000 IV (04:52)
[2024-09-07 05:27] LABS: Urine Albumin 1+ (Neg - Trace); Urine Bilirubin Negative (Negative); Urine Character Clear (Clear); Urine Color Yellow; Urine Glucose Negative (Negative); Urine Ketone 2+ (Negative); Urine Leukocyte Negative (Negative); Urine Nitrite Negative (Negative); Urine Occult Blood 4+ (Negative); Urine Specific Gravity 1.015 (<1.030); Urine Urobilinogen 1+ (Neg - 1+)
[2024-09-07 05:42] LABS: Urine Bacteria Few (Negative); Urine Red Blood Cell 26-30 /HPF (0-2)
--- NOTE | 2024-09-07 06:09 | HPS.HSE ---
Family Physician
-
Family Physician: NOT KNOW UNKNOWN - PT DOES
Chief Complaint
-
Neck Pain, Falls
History of Present Illness
Patient is a 64y M with PMH significant for A-Fib and HFrecEF who presents to ED complaining of neck pain and falling at home. Patient was recently admitted to from 08/29 - 08/30 for influenza A. He presented at that time with weakness / fall
at home as well. Patient states that he was feeling improved after discharge. He has completed his course of Tamiflu. He has some mild residual cough but otherwise states that she was feeling well yesterday.
Today he did some work at his computer for 'maybe a couple of hours'. When he stood up from the computer he noted neck pain posteriorly. This pain was quite significant and patient states that he was unable to turn his head from side to side due
to pain.
He went to lie in bed but was unable to get comfortable. He found that he was unable to sit up / get up from bed and had to 'roll' out of the bed and use furniture in order to get upright.
He tried to lie in his recliner - also without improvement in his neck discomfort.
Patient stood from the recliner with some difficulty, lost his balance and fell - striking his L chest on a wooden sofa frame. He reports pain in the L chest since this fall.
He did not strike his head. He did not lose consciousness.
Patient called 911 and was brought to the ED for further evaluation.
Patient notes that he was 'normal' prior to his recent episode of influenza. He typically ambulates without any assist device.
Medical History
Past Medical History
Past Medical History: Reports Other
Additional Past Medical History:
Paroxysmal Atrial Fibrillation
Chronic HF recovered EF
Renal Infarct
Past Surgical History: Reports Other
Additional Past Surgical History:
PVI Ablation / Watchman Device (06/2024)
Hernia Repairs
Left Hip ORIF
Knee Arthroscopy
Social History
Tobacco: Non-smoker
Alcohol: Occasional (Rarely)
Drug: None
Family History
Family History: Not pertinent
Allergies / Home Medications
Allergies reflects when Allergies were last updated in [employer].
Home Medications with original date entered in [employer]
Allergy/Medication List:
Allergies
Allergy/AdvReac Type Severity Reaction Status Date / Time
No Known Allergies Allergy Verified 09/07/24 02:55
Home Medications
flecainide 100 mg tablet 100 mg PO BID Arrhythmia 05/18/24
baclofen 5 mg tablet 5 mg PO TID spasm 06/13/24
gabapentin 300 mg capsule 300 mg PO TID neuropathic pain 06/13/24
diazepam 10 mg tablet 10 mg PO HS Sleep 06/30/24
ferrous sulfate 325 mg (65 mg iron) tablet 325 mg PO Q48H Supplement 06/30/24
metoprolol succinate 100 mg tablet,extended release 24 hr 100 mg PO BID Blood Pressure 06/30/24
warfarin 5 mg tablet 5 mg PO SUSA Blood Clot Prevention/Tx 06/30/24
celecoxib 200 mg capsule 200 mg PO DAILY pain 08/28/24
warfarin 5 mg tablet 7.5 mg PO MOTUWETHFR Blood Clot Prevention/Tx 08/28/24
Review of Systems
-
History Source: Patient
A 12 point ROS was completed and negative except as noted: Yes
Constitutional: Reports Fatigue; Denies Fever or Chills
EENT: Denies Sore Throat
Respiratory: Reports Cough; Denies Trouble Breathing
Cardiac: Denies Chest Pain or Palpitations
Abdomen/GI: Denies Abdominal Pain, Nausea, Vomiting, Diarrhea, Bloody Stools or Black Stools
: Denies Dysuria, Frequency or Flank Pain
Musculoskeletal: Reports Muscle Pain and Other (Neck pain); Denies Edema
Neurological: Reports Weakness and Other (Falls / ataxia); Denies Dizzy or Headache
Psych: Denies Depression or Anxiety
Physical Exam
Vital Signs
Vital Signs
Temp Pulse Resp BP Pulse Ox
98.3 F 78 20 134/90 96
09/07/24 03:37 09/07/24 02:54 09/07/24 02:54 09/07/24 02:54 09/07/24 04:51
Physical Exam
General: Other (64y M in mild distress due to pain.)
HEENT: PERRLA and Other (Dry MM. Neck supple. No signifciant spasticity or tenderness appreciated.)
Respiratory: Clear; No Wheezes, Rales or Rhonchi
Cardiac: S1/S2 and Irregular Rhythm; No Murmur
GI: Soft, Non Tender, Non Distended and Normal Bowel Sounds
Musculoskeletal: No Clubbing, No Cyanosis and No Edema
Neuro: AO x 3 and Other (No focal weakness appreciated on exam.)
Laboratory Results
-
09/07/24 03:23
09/07/24 03:23
Laboratory Results
PT 40.3 Sec (11.4-14.6) H 09/07/24 03:23
INR 4.23 D 09/07/24 03:23
APTT 70.3 Sec (23.4-35.0) H 09/07/24 03:23
Total Bilirubin 0.7 mg/dl (0.2-1.3) 09/07/24 03:23
AST 25 U/L (17-59) 09/07/24 03:23
ALT 16 U/L (0-50) 09/07/24 03:23
Alkaline Phosphatase 81 U/L (38-126) 09/07/24 03:23
Lipase 148 U/L (23-300) 09/07/24 03:23
Impression/Plan
-
A/P: Patient is a 64y M with PMH significant for A-Fib s/p PVI and Watchman device who presents to ED complaining of neck pain and ataxia.
Neck Pain
Ataxia / Fall at Home
- Admit for further evaluation and treatment.
- Significant neck pain, nuchal rigidity, generalized weakness (no apparent focality).
- CT done in the ED with no gross cervical trauma / fracture.
- Supportive care including pain control, muscle relaxants, heat application, etc.
- Check MR C-spine given recent viral infection (influenza) and associated ataxia, etc.
- Neurology evaluation for additional recommendations.
- Follow for any focal neurologic changes / deficits.
- PT / OT evaluations.
- Follow fever curve / monitor for any new symptoms.
Paroxysmal Atrial Fibrillation
- In irregular rhythm on exam. Check EKG now.
- Continue current medications including flecainide.
- Hold Coumadin acutely - ? if patient will require LP or other invasive testing.
- Follow daily INR.
History of HFrecEF
- No evidence of volume overload on exam.
- Not on chronic diuretic therapy, etc.
- Follow I/Os, daily weights, etc.
Recent Influenza A Infection
- s/p course of Tamiflu.
- Mild residual cough. Not currently febrile, hypoxemic, etc.
DVT Prophylaxis: SCDs
Code Status: Full
[2024-09-07] MEDS: VALIUM 5 MG PO (06:29)
[2024-09-07] MEDS: LR 1000 IV ×2 (08:09→17:48)
[2024-09-07] MEDS: TOPROL XL 100 MG PO (08:21)
[2024-09-07] MEDS: TAMBOCOR 100 MG PO ×2 (08:21→21:45)
[2024-09-07] MEDS: NEURONTIN 300 MG PO ×3 (08:21→21:45)
[2024-09-07] MEDS: DILAUDID 0.5 MG IV ×4 (08:22→23:20)
--- NOTE | 2024-09-07 08:30 | CON.NEURO ---
Neuro Assessment/Plan
Assessment
64 year old man with neck pain, low back pain, neurologically intact. Afebrile, normal WBCs. No suspicion for a brain or spinal cord problem
treatment would include continuing celecoxib, baclofen, and Valium; as well as heat, PT, massage, acupuncture, etc
Plan
no need for MRI
Consultation
Order
Date of Consultation: 09/07/24
Requesting Provider: Micha Vazquez
Reason for Consult: Neck pain, ataxia
Subjective/Objective
Subjective Data
Date of Service: September 07, 2024
from H&P:
Patient is a 64y M with PMH significant for A-Fib and HFrecEF who presents to ED complaining of neck pain and falling at home. Patient was recently admitted to from 08/29 - 08/30 for influenza A. He presented at that time with weakness / fall
at home as well. Patient states that he was feeling improved after discharge. He has completed his course of Tamiflu. He has some mild residual cough but otherwise states that she was feeling well yesterday.
Today he did some work at his computer for 'maybe a couple of hours'. When he stood up from the computer he noted neck pain posteriorly. This pain was quite significant and patient states that he was unable to turn his head from side to side due
to pain.
He went to lie in bed but was unable to get comfortable. He found that he was unable to sit up / get up from bed and had to 'roll' out of the bed and use furniture in order to get upright.
He tried to lie in his recliner - also without improvement in his neck discomfort.
Patient stood from the recliner with some difficulty, lost his balance and fell - striking his L chest on a wooden sofa frame. He reports pain in the L chest since this fall.
He did not strike his head. He did not lose consciousness.
To me, he complains of neck pain, low back pain, worse with movement
He denies weakness, numbness, ataxia, bowel or bladder changes.
Objective Data
Vital Signs
Temp Pulse Resp BP Pulse Ox
37.0 C 74 20 155/84 94
09/07/24 06:00 09/07/24 08:21 09/07/24 02:54 09/07/24 08:21 09/07/24 06:45
Lab Results
09/07/24 03:23
09/07/24 03:23
PT 40.3 Sec (11.4-14.6) H 09/07/24 03:23
INR 4.23 D 09/07/24 03:23
APTT 70.3 Sec (23.4-35.0) H 09/07/24 03:23
Sodium 137 mmol/L (135-145) 09/07/24 03:23
Potassium 3.7 mmol/L (3.5-5.1) 09/07/24 03:23
BUN 24 mg/dl (9-20) H 09/07/24 03:23
Glucose 105 mg/dl (70-99) H 09/07/24 03:23
Calcium 8.9 mg/dl (8.4-10.2) 09/07/24 03:23
Patient Allergies
No Known Allergies Allergy (Verified 09/07/24 02:55)
Physical Exam
-
AAOx3 speech clear, language intact
VFF, EOMI, face symmetric
full strength b/l UE, lower ext pain limited
sensation intact to temp/vib
DTR 1+ symmetric
neck very tender, a few degrees of AROM each side with pain, pain with passive movement
palpated left C4 subluxation,
Medications
-
Active Medications
Generic Name Dose Route Start Last Admin
Trade Name Freq PRN Reason Stop Dose Admin
Acetaminophen 650 mg 09/07/24 07:41
Acetaminophen 325 Mg Tablet PO 10/05/24 07:40
Q4HPRN PRN
Mild Pain / Temp > 101
Flecainide Acetate 100 mg 09/07/24 08:00 09/07/24 08:21
Flecainide 100 Mg Tablet PO 10/05/24 07:59 100 mg
BID ZOE Administration
Gabapentin 300 mg 09/07/24 08:00 09/07/24 08:21
Gabapentin 300 Mg Capsule PO 10/05/24 07:59 300 mg
TID ZOE Administration
Hydromorphone HCl 0.5 mg 09/07/24 07:41 09/07/24 08:22
Hydromorphone 0.5 Mg/0.5 Ml Syringe IV 09/21/24 07:40 0.5 mg
Q4HPRN PRN Administration
Severe Pain
Sodium Chloride 1,000 mls @ 250 mls/hr 09/07/24 04:33 09/07/24 04:52
Nss IV 09/07/24 08:32 1,000 mls
.Q4H STA Administration
Lactated Ringer's 1,000 mls @ 100 mls/hr 09/07/24 07:41 09/07/24 08:09
Lr IV 1,000 mls
.Q10H ZOE Administration
Metoprolol Succinate 100 mg 09/07/24 08:00 09/07/24 08:21
Metoprolol 100 Mg Extended Release Tablet PO 10/05/24 07:59 100 mg
BID ZOE Administration
Sodium Chloride 0 flush 09/07/24 07:00
Sodium Chloride 0.9% (Flush) Syringe IV 10/05/24 06:59
PER PROTOCOL ZOE
Home Medications
�Medication �Instructions �Recorded
flecainide 100 mg tablet 100 mg PO BID Arrhythmia 05/18/24
baclofen 5 mg tablet 5 mg PO TID spasm 06/13/24
gabapentin 300 mg capsule 300 mg PO TID neuropathic pain 06/13/24
diazepam 10 mg tablet 10 mg PO HS Sleep 06/30/24
ferrous sulfate 325 mg (65 mg 325 mg PO Q48H Supplement 06/30/24
iron) tablet
metoprolol succinate 100 mg 100 mg PO BID Blood Pressure 06/30/24
tablet,extended release 24 hr
warfarin 5 mg tablet 5 mg PO SUSA Blood Clot 06/30/24
Prevention/Tx
celecoxib 200 mg capsule 200 mg PO DAILY pain 08/28/24
warfarin 5 mg tablet 7.5 mg PO MOTUWETHFR Blood Clot 08/28/24
Prevention/Tx
[2024-09-07] MEDS: CELEBREX 200 MG PO (11:48)
[2024-09-07] MEDS: LIORESAL 5 MG PO ×3 (11:48→21:45)
--- NOTE | 2024-09-07 12:27 | W.PN.HOSP.TC ---
Today's Communication/Plan
-
obtain MRI
continue pain control
PT/OT
Assessment / Plan
Assessment / Plan
Assessment:
Neck Pain
Ataxia/Fall at Home
- Significant neck pain, nuchal rigidity, generalized weakness (no apparent focality).
- CT done in the ED with no gross cervical trauma / fracture.
- Supportive care including pain control, muscle relaxants, heat application, etc.
- Check MR C-spine given recent viral infection (influenza) and associated ataxia, etc.
- Neurology evaluation for additional recommendations.
- Follow for any focal neurologic changes / deficits.
- PT/OT evaluations.
- Follow fever curve / monitor for any new symptoms.
Atrial Flutter
- EKG with Aflutter 2:1 AV conduction
- continue flecainide/BB
- holding Coumadin for supra-therapeutic INR
History of HFpEF
- No evidence of volume overload on exam.
- Not on chronic diuretic therapy, etc.
- Follow I/Os, daily weights, etc.
Recent Influenza A Infection
- s/p course of Tamiflu.
- Mild residual cough. Not currently febrile, hypoxemic, etc.
DVT Prophylaxis: SCDs
Code Status: Full
Anticipated Discharge: 24 - 48 hours
Subjective/Interval History
-
Date of Service: September 07, 2024
reports ongoing limited ROM of neck and neck pain posterior
no new complaints
asking about next dilaudid dosing
Objective Data
-
Labs:
Laboratory Results
09/07/24
03:23
WBC 10.0
Hgb 14.0
Hct 42.0
Plt Count 183
PT 40.3 H
INR 4.23 D
APTT 70.3 H
Sodium 137
Potassium 3.7
Chloride 101
Carbon Dioxide 28
BUN 24 H
Creatinine 0.9
Glucose 105 H
Calcium 8.9
Total Bilirubin 0.7
AST 25
ALT 16
Alkaline Phosphatase 81
Vital Signs:
Vital Signs
Temp Pulse Resp BP Pulse Ox
98.6 F 62 14 129/87 99
09/07/24 06:00 09/07/24 10:48 09/07/24 10:45 09/07/24 10:48 09/07/24 08:15
I&O
09/06/24 09/07/24 09/08/24
06:59 06:59 06:59
Output Total 150 / 150
Balance -150 / -150
Physical Exam
-
General: No Apparent Distress
HEENT: Normocephalic and Atraumatic
Respiratory: Negative Wheezes
Cardiac: Regular Rhythm and S1/S2
GI: Soft and Nontender
Musculoskeletal: Other (neck very tender, a few degrees of AROM each side with pain, pain with passive movement)
Neuro: AO x 3
Hematologic / Lymphatic: No Lymphadenopathy
Psych: Calm
Data Reviewed
-
Total Time Spent with Patient (in minutes): 42
Labs: Labs Reviewed by me
[2024-09-07 14:03] LABS: Erythrocyte Sed Rate 21 mm/hour (0-20)
[2024-09-07] MEDS: ROXICODONE 5 MG PO ×2 (16:15→21:45)
[2024-09-07] MEDS: TOPROL XL PO (21:37)
[2024-09-07] MEDS: VALIUM 10 MG PO (21:45)
[2024-09-08] MEDS: ROXICODONE 5 MG PO ×3 (02:19→20:02)
[2024-09-08] MEDS: DILAUDID 0.5 MG IV (03:23)
[2024-09-08] MEDS: LR 1000 IV ×2 (03:23→12:15)
[2024-09-08 03:27] VITALS: BP 131/77
[2024-09-08 05:33] VITALS: BMI 25.8
[2024-09-08 06:43] LABS: INR 3.74; PT 37.2 Sec (11.4-14.6)
[2024-09-08 06:47] LABS: Hematocrit 35.7 % (39.0-52.0); Hemoglobin 12.1 g/dL (13.0-18.0); Mean Corp Hgb Conc. 33.9 g/dL (33.0-37.0); Mean Corpuscular Hgb 29.5 pg (27.0-31.0); Mean Corpuscular Volume 87.1 fL (80.0-94.0); Mean Platelet Volume 11.9 fL (7.4-10.4); Platelet Count 175 10^3/uL (130-400); White Blood Cell Count 6.1 10^3/uL (4.8-10.8)
[2024-09-08 07:15] LABS: Blood Urea Nitrogen 16 mg/dl (9-20); Calcium 8.8 mg/dl (8.4-10.2); Carbon Dioxide 31 mmol/L (22-30); Chloride 99 mmol/L (98-107); Estimated Creatinine Clearance 99 ml/min; Glucose 89 mg/dl (70-99); Potassium 3.9 mmol/L (3.5-5.1); Sodium 135 mmol/L (135-145); eGFR > 60.00
[2024-09-08 07:30] VITALS: BP 148/76
[2024-09-08] MEDS: TAMBOCOR 100 MG PO ×2 (08:01→20:01)
[2024-09-08] MEDS: LIORESAL 5 MG PO ×3 (08:01→22:38)
[2024-09-08] MEDS: NEURONTIN 300 MG PO ×3 (08:01→20:02)
[2024-09-08] MEDS: CELEBREX 200 MG PO (08:01)
[2024-09-08] MEDS: TOPROL XL 100 MG PO ×2 (08:02→20:01)
[2024-09-08 11:19] VITALS: BP 102/59; BP 111/65; BP 97/52; PULSE 57; PULSE 60; PULSE 70
--- NOTE | 2024-09-08 11:53 | W.PN.HOSP.TC ---
Today's Communication/Plan
-
standing Tylenol and prn Tylenol/oxycodone
muscle relaxers/Gabapentin
CPK level; IV steroid trial
PT/OT
Assessment / Plan
Assessment / Plan
Assessment:
Neck Pain
Fall at home
- Significant neck pain, nuchal rigidity, generalized weakness (no apparent focality).
- CT done in the ED with no gross cervical trauma/fracture.
- MRI neck and C-spine: No compression deformity. No anterior posterior listhesis. Discogenic and facet degenerative changes. Please refer to above discussion for specific and additional details at individual levels. No intrinsic cervical cord
signal alteration
- CPK level pending
- pain control with Tylenol standing and prn
- muscle relaxers
- Gabapentin
- trial IV steroids
- appreciate Neuro evaluation; no change in mental status, fevers, leukocytosis. Low suspicion of meningitis
- PT/OT evaluations.
Atrial Flutter
- EKG with Aflutter 2:1 AV conduction
- continue flecainide/BB
- holding Coumadin for supra-therapeutic INR
History of HFpEF
- No evidence of volume overload on exam.
- Not on chronic diuretic therapy, etc.
- Follow I/Os, daily weights, etc.
Recent Influenza A Infection
- s/p course of Tamiflu.
- Mild residual cough. Not currently febrile, hypoxemic, etc.
DVT Prophylaxis: SCDs
Code Status: Full
Anticipated Discharge: 24 - 48 hours
Subjective/Interval History
-
Date of Service: September 08, 2024
ongoing neck pain, slightly improved, 12/20 today (02/19 yesterday)
Objective Data
-
Labs:
Laboratory Results
09/08/24
05:55
WBC 6.1
Hgb 12.1 L
Hct 35.7 L
Plt Count 175
PT 37.2 H
INR 3.74
Sodium 135
Potassium 3.9
Chloride 99
Carbon Dioxide 31 H
BUN 16
Creatinine 0.9
Glucose 89
Calcium 8.8
Vital Signs:
Vital Signs
Temp Pulse Resp BP Pulse Ox
99.2 F 61 16 148/76 96
09/08/24 11:31 09/08/24 07:30 09/08/24 11:31 09/08/24 07:30 09/08/24 11:31
I&O
09/07/24 09/08/24 09/09/24
06:59 06:59 06:59
Intake Total 120 / 120
Output Total 150 / 150 1300 / 1300
Balance -150 / -150 -1180 / -1180
Physical Exam
-
General: No Apparent Distress
HEENT: Normocephalic and Atraumatic
Respiratory: Negative Wheezes
Cardiac: Regular Rhythm and S1/S2
GI: Soft and Nontender
Musculoskeletal: No Edema and Other (neck with a few degrees of AROM each side with pain, pain with passive movement)
Neuro: AO x 3
Hematologic / Lymphatic: No Lymphadenopathy
Psych: Calm
Data Reviewed
-
Total Time Spent with Patient (in minutes): 41
Labs: Labs Reviewed by me
[2024-09-08] MEDS: DECADRON 4 MG IV ×2 (13:01→20:02)
[2024-09-08 13:26] LABS: Creatine Phosphokinase 72 U/L (55-170)
[2024-09-08] MEDS: TYLENOL 1000 MG PO ×2 (15:33→21:46)
[2024-09-08 15:55] VITALS: BP 122/61
[2024-09-08 20:18] VITALS: BP 100/62; BP 104/62; BP 110/63; PULSE 56; PULSE 61; PULSE 67
[2024-09-08] MEDS: VALIUM 10 MG PO (21:46)
[2024-09-08 23:05] VITALS: BP 119/74
[2024-09-09] VITALS (7 sets, daily range): BP systolic 94–139; BP diastolic 56–82; PULSE 60–72; O2SAT 94; BMI 25.5
[2024-09-09] MEDS: DECADRON 4 MG IV ×3 (04:15→20:19)
[2024-09-09 06:26] LABS: Hematocrit 40.6 % (39.0-52.0); Hemoglobin 13.8 g/dL (13.0-18.0); Mean Corpuscular Volume 85.3 fL (80.0-94.0); Mean Platelet Volume 11.3 fL (7.4-10.4); Platelet Count 186 10^3/uL (130-400); Red Blood Cell Count 4.76 10^6/uL (4.70-6.10); Red Cell Dist. Width 13.4 % (11.5-14.5); White Blood Cell Count 6.7 10^3/uL (4.8-10.8)
[2024-09-09 06:33] LABS: INR 2.39; PT 26.5 Sec (11.4-14.6)
[2024-09-09 07:06] LABS: Blood Urea Nitrogen 17 mg/dl (9-20); Calcium 9.3 mg/dl (8.4-10.2); Carbon Dioxide 29 mmol/L (22-30); Chloride 100 mmol/L (98-107); Estimated Creatinine Clearance > 125 ml/min; Glucose 152 mg/dl (70-99); Potassium 4.4 mmol/L (3.5-5.1); Sodium 135 mmol/L (135-145); eGFR > 60.00
[2024-09-09 07:11] LABS: Creatine Phosphokinase 41 U/L (55-170)
[2024-09-09 07:36] LABS: Erythrocyte Sed Rate 26 mm/hour (0-20)
[2024-09-09] MEDS: ROXICODONE 5 MG PO ×2 (08:36→20:25)
[2024-09-09] MEDS: TYLENOL 1000 MG PO ×3 (08:37→22:23)
[2024-09-09] MEDS: TAMBOCOR 100 MG PO ×2 (08:37→20:22)
[2024-09-09] MEDS: CELEBREX 200 MG PO (08:37)
[2024-09-09] MEDS: NEURONTIN 300 MG PO ×3 (08:38→22:23)
[2024-09-09] MEDS: LIORESAL 5 MG PO ×3 (08:38→22:23)
[2024-09-09] MEDS: TOPROL XL PO (08:39)
--- NOTE | 2024-09-09 09:46 | W.PN.HOSP.TC ---
Today's Communication/Plan
-
check MRI brain w/without contrast
repeat INR at noon
continue IV steroids and current plan of care
Assessment / Plan
Assessment / Plan
Assessment:
Neck Pain
Fall at home
- Significant neck pain, generalized weakness (no apparent focality).
- CT done in the ED with no gross cervical trauma/fracture.
- MRI neck and C-spine: No compression deformity. No anterior posterior listhesis. Discogenic and facet degenerative changes. Please refer to above discussion for specific and additional details at individual levels. No intrinsic cervical cord
signal alteration
- MRI brain pending, evaluate for inflammation, tumors contributing to symptomatology
- CPK level normal
- noted ESR/CRP level elevated; continue IV steroids
- pain control with Tylenol standing and prn
- muscle relaxers
- Gabapentin
- appreciate Neuro evaluation; no change in mental status, fevers, leukocytosis. Low suspicion of meningitis but will follow MRI results for any signs.
- PT/OT evaluations - SNF vs home
Atrial Flutter
- EKG with Aflutter 2:1 AV conduction
- continue flecainide/BB
- holding Coumadin for supra-therapeutic INR; follow INR
History of HFpEF
- No evidence of volume overload on exam.
- Not on chronic diuretic therapy, etc.
- Follow I/Os, daily weights, etc.
Recent Influenza A Infection
- s/p course of Tamiflu.
- Mild residual cough. Not currently febrile, hypoxemic, etc.
DVT Prophylaxis: SCDs
Code Status: Full
Anticipated Discharge: 24 - 48 hours
Subjective/Interval History
-
Date of Service: September 09, 2024
neck pain improving, reports more improved range of motion
no fever/chills
Objective Data
-
Labs:
Laboratory Results
09/09/24 09/09/24
05:58 12:00
WBC 6.7
Hgb 13.8
Hct 40.6
Plt Count 186
PT 26.5 H Pending
INR 2.39 Pending
Sodium 135
Potassium 4.4
Chloride 100
Carbon Dioxide 29
BUN 17
Creatinine 0.7
Glucose 152 H
Calcium 9.3
Vital Signs:
Vital Signs
Temp Pulse Resp BP Pulse Ox
97.5 F 53 16 121/75 95
09/09/24 07:30 09/09/24 08:39 09/09/24 07:30 09/09/24 08:39 09/09/24 07:30
I&O
09/08/24 09/09/24 09/10/24
06:59 06:59 06:59
Intake Total 120 / 120 1180 / 1180
Output Total 1300 / 1300 1000 / 1000
Balance -1180 / -1180 180 / 180
Physical Exam
-
General: No Apparent Distress
HEENT: Normocephalic and Atraumatic
Respiratory: Negative Wheezes
Cardiac: Regular Rhythm and S1/S2
GI: Soft
Musculoskeletal: Other (neck with a few degrees of AROM, slightly improved on each side with less pain, pain with passive movement also decreased)
Neuro: AO x 3
Hematologic / Lymphatic: No Lymphadenopathy
Psych: Calm
Data Reviewed
-
Total Time Spent with Patient (in minutes): 42
Labs: Labs Reviewed by me
[2024-09-09 13:35] LABS: INR 2.29; PT 25.3 Sec (11.4-14.6)
[2024-09-09] MEDS: DILAUDID 0.5 MG IV (14:29)
--- NOTE | 2024-09-09 15:08 | CM ---
CM reviewed chart, patient seen bedside, initial assessment completed. Patient resides independently in a two story home plus basement, two steps to enter. Patient denies use of DME but has equipment at home after having knee surgery in past.
Patient reports Acute Rehab in past, does not have a PCP, pharmacy [facility] Patient declining VN at this time. Patient interested in list of PCPs, will provide to patient. CM will continue to follow for all discharge planning
needs.
Plan; home no needs.
[2024-09-09] MEDS: TOPROL XL 100 MG PO (20:21)
[2024-09-09] MEDS: VALIUM 5 MG PO (22:24)
[2024-09-10 03:52] VITALS: BP 110/68
[2024-09-10 06:00] VITALS: BMI 24.9
[2024-09-10] MEDS: DECADRON 4 MG IV ×3 (06:08→21:58)
[2024-09-10 07:00] VITALS: BP 116/67; BP 119/70; BP 98/64; PULSE 49; PULSE 52; PULSE 58
[2024-09-10 07:53] LABS: Hematocrit 39.1 % (39.0-52.0); Hemoglobin 13.1 g/dL (13.0-18.0); Mean Corp Hgb Conc. 33.5 g/dL (33.0-37.0); Mean Corpuscular Volume 86.5 fL (80.0-94.0); Mean Platelet Volume 12.5 fL (7.4-10.4); Platelet Count 209 10^3/uL (130-400); Red Blood Cell Count 4.52 10^6/uL (4.70-6.10); Red Cell Dist. Width 13.8 % (11.5-14.5); White Blood Cell Count 15.7 10^3/uL (4.8-10.8)
[2024-09-10 07:59] LABS: INR 1.94; PT 22.3 Sec (11.4-14.6)
[2024-09-10 08:18] LABS: Erythrocyte Sed Rate 23 mm/hour (0-20)
[2024-09-10 08:28] LABS: Blood Urea Nitrogen 25 mg/dl (9-20); Carbon Dioxide 29 mmol/L (22-30); Chloride 103 mmol/L (98-107); Estimated Creatinine Clearance 99 ml/min; Glucose 132 mg/dl (70-99); Potassium 4.2 mmol/L (3.5-5.1); Sodium 137 mmol/L (135-145); eGFR > 60.00
[2024-09-10] MEDS: TOPROL XL 100 MG PO ×2 (08:47→21:59)
[2024-09-10] MEDS: LIORESAL 5 MG PO ×3 (08:47→21:59)
[2024-09-10] MEDS: TAMBOCOR 100 MG PO ×2 (08:47→20:22)
[2024-09-10] MEDS: TYLENOL 1000 MG PO ×3 (08:48→21:59)
[2024-09-10] MEDS: NEURONTIN 300 MG PO ×3 (08:48→21:59)
[2024-09-10] MEDS: CELEBREX 200 MG PO (08:48)
[2024-09-10 11:00] VITALS: BP 115/65
--- NOTE | 2024-09-10 13:14 | W.PN.HOSP.TC ---
Today's Communication/Plan
-
stop IV steroids after 10 pm dose; transition to oral steroids
Assessment / Plan
Assessment / Plan
Assessment:
Neck Pain
Fall at home
- Significant neck pain, generalized weakness (no apparent focality).
- CT done in the ED with no gross cervical trauma/fracture.
- MRI neck and C-spine: No compression deformity. No anterior posterior listhesis. Discogenic and facet degenerative changes. Please refer to above discussion for specific and additional details at individual levels. No intrinsic cervical cord
signal alteration
- MRI brain negative
- CPK level normal
- noted ESR/CRP level elevated; continue IV steroids; CRP levels improving. tomorrow transition to PO Steroids
- pain control with Tylenol standing and prn
- muscle relaxers
- Gabapentin
- appreciate Neuro evaluation; no change in mental status, fevers, leukocytosis. Low suspicion of meningitis but will follow MRI results for any signs.
- PT/OT evaluations - home/VN at discharge
Atrial Flutter
- EKG with Aflutter 2:1 AV conduction
- continue flecainide/BB
- resume Coumadin 5mg HS; follow INR daily and outpatient labs
History of HFpEF
- No evidence of volume overload on exam.
- Not on chronic diuretic therapy, etc.
- Follow I/Os, daily weights, etc.
Recent Influenza A Infection
- s/p course of Tamiflu.
- Mild residual cough. Not currently febrile, hypoxemic, etc.
DVT Prophylaxis: SCDs
Code Status: Full
Anticipated Discharge: > 48 hours
Subjective/Interval History
-
Date of Service: September 10, 2024
resting comfortably
feeling better, better ROM
Objective Data
-
Labs:
Laboratory Results
09/10/24
05:53
WBC 15.7 H
Hgb 13.1
Hct 39.1
Plt Count 209
PT 22.3 H
INR 1.94
Sodium 137
Potassium 4.2
Chloride 103
Carbon Dioxide 29
BUN 25 H
Creatinine 0.9
Glucose 132 H
Calcium 9.0
Vital Signs:
Vital Signs
Temp Pulse Resp BP Pulse Ox
97.6 F 58 20 115/65 97
09/10/24 11:00 09/10/24 11:00 09/10/24 11:00 09/10/24 11:00 09/10/24 11:00
I&O
09/09/24 09/10/24 09/11/24
06:59 06:59 06:59
Intake Total 1180 / 1180 840 / 840
Output Total 1000 / 1000 1200 / 1200
Balance 180 / 180 -360 / -360
Physical Exam
-
General: No Apparent Distress
HEENT: Normocephalic and Atraumatic
Respiratory: Negative Wheezes
Cardiac: Regular Rhythm and S1/S2
Genito-urinary: No Costovertebral Tender
Musculoskeletal: No Edema
Neuro: AO x 3
Hematologic / Lymphatic: No Lymphadenopathy
Psych: Calm
Data Reviewed
-
Total Time Spent with Patient (in minutes): 41
Labs: Labs Reviewed by me
[2024-09-10 15:22] VITALS: BP 116/74
[2024-09-10] MEDS: LIDOCAINE 4% PATCH 1 PATCH TOPICAL (16:13)
[2024-09-10] MEDS: DILAUDID 0.5 MG IV ×2 (17:57→22:02)
[2024-09-10] MEDS: COUMADIN 5 MG PO (18:26)
[2024-09-10 19:10] VITALS: BP 112/69; BP 114/65; BP 115/69; BP 117/64; PULSE 55; PULSE 59
[2024-09-10] MEDS: ROXICODONE 5 MG PO (20:30)
[2024-09-10] MEDS: VALIUM 10 MG PO (21:58)
[2024-09-10 23:20] VITALS: BP 119/79
[2024-09-11 03:03] VITALS: BP 142/82
[2024-09-11 05:54] VITALS: BMI 25.0
[2024-09-11 07:39] LABS: INR 1.31; PT 16.5 Sec (11.4-14.6)
[2024-09-11 07:43] VITALS: BP 146/84
[2024-09-11] MEDS: LIDOCAINE 4% PATCH 1 PATCH TOPICAL (08:40)
[2024-09-11] MEDS: LIORESAL 5 MG PO (08:41)
[2024-09-11] MEDS: TYLENOL 1000 MG PO (08:41)
[2024-09-11] MEDS: TAMBOCOR 100 MG PO (08:41)
[2024-09-11] MEDS: DELTASONE 40 MG PO (08:42)
[2024-09-11] MEDS: CELEBREX 200 MG PO (08:42)
[2024-09-11] MEDS: NEURONTIN 300 MG PO (08:42)
[2024-09-11] MEDS: TOPROL XL PO (08:43)
[2024-09-11 10:46] VITALS: BP 124/71
[2024-09-11 11:04] VITALS: BP 123/70; BP 124/71; BP 130/70; PULSE 50; PULSE 65; PULSE 68
--- NOTE | 2024-09-11 12:35 | W.PN.HOSP.TC ---
Addendum entered and electronically signed by Isabel Burrows MD 09/11/24 12:50:
post-influenza bronchitis
Original Note:
Today's Communication/Plan
-
dc home
Assessment / Plan
Assessment / Plan
Assessment:
Neck Pain
Fall at home
- Significant neck pain, generalized weakness (no apparent focality).
- CT done in the ED with no gross cervical trauma/fracture.
- MRI neck and C-spine: No compression deformity. No anterior posterior listhesis. Discogenic and facet degenerative changes. Please refer to above discussion for specific and additional details at individual levels. No intrinsic cervical cord
signal alteration
- MRI brain negative
- CPK level normal
- noted ESR/CRP level elevated; continue IV steroids; CRP levels improving. PO steroids
- pain control with Tylenol standing and prn
- muscle relaxers
- Gabapentin
- appreciate Neuro evaluation; no change in mental status, fevers, leukocytosis. Low suspicion of meningitis but will follow MRI results for any signs.
- PT/OT evaluations - home/VN at discharge
Atrial Flutter
- EKG with Aflutter 2:1 AV conduction
- continue flecainide/BB
- resume Coumadin 5mg HS; follow INR daily and outpatient labs
History of HFpEF
- No evidence of volume overload on exam.
- Not on chronic diuretic therapy, etc.
- Follow I/Os, daily weights, etc.
Recent Influenza A Infection
- s/p course of Tamiflu.
- Mild residual cough. Not currently febrile, hypoxemic, etc.
- post influenza - doxycycline 100mg BID
DVT Prophylaxis: SCDs
Code Status: Full
More than 30 minutes spent in discharge including
Final examination of the patient
Summarizing hospital stay
Instructions for continuing care to all relevant caregivers
Preparation of discharge records, prescriptions, and referral forms
Total time spent (in minutes): 41
Anticipated Discharge: Today
Subjective/Interval History
-
Date of Service: September 11, 2024
neck pain improving
Objective Data
-
Labs:
Laboratory Results
09/11/24
05:55
PT 16.5 H
INR 1.31
Vital Signs:
Vital Signs
Temp Pulse Resp BP Pulse Ox
97.9 F 50 20 124/71 96
09/11/24 10:46 09/11/24 10:46 09/11/24 10:46 09/11/24 10:46 09/11/24 10:46
I&O
09/10/24 09/11/24 09/12/24
06:59 06:59 06:59
Intake Total 840 / 840 480 / 480
Output Total 1200 / 1200
Balance -360 / -360 480 / 480
Physical Exam
-
General: No Apparent Distress
HEENT: Normocephalic and Atraumatic
Respiratory: Negative Wheezes
Cardiac: Regular Rhythm and S1/S2
GI: Soft and Nontender
Genito-urinary: No Costovertebral Tender
Musculoskeletal: No Edema
Neuro: AO x 3
Hematologic / Lymphatic: No Lymphadenopathy
Psych: Calm
Data Reviewed
-
Total Time Spent with Patient (in minutes): 41
Labs: Labs Reviewed by me
--- NOTE | 2024-09-11 12:48 | W.DS.TRANS ---
DC Summary - [employer]
-
Discharge Instructions:
Discharge Diagnosis/Procedures post-influenza bronchitis and also neck/back
pain myalgia
Diet Regular
Activity As tolerated
Bathing Restrictions None
Blood Work INR Thursday - results to Dr. Watkins
Instructions:
Stand-Alone Forms:
Changes to Home Medications: No
Discharge Medications:
DC Medications w/original date entered in [employer]
flecainide 100 mg tablet 100 mg PO BID Arrhythmia 05/18/24
baclofen 5 mg tablet 5 mg PO TID spasm 06/13/24
gabapentin 300 mg capsule 300 mg PO TID neuropathic pain 06/13/24
diazepam 10 mg tablet 10 mg PO HS Sleep 06/30/24
ferrous sulfate 325 mg (65 mg iron) tablet 325 mg PO Q48H Supplement 06/30/24
metoprolol succinate 100 mg tablet,extended release 24 hr 100 mg PO BID Blood Pressure 06/30/24
celecoxib 200 mg capsule 200 mg PO DAILY pain 08/28/24
tavaborole 5 % topical solution with applicator 1 applic topical DAILY toenails on both feet 09/07/24
acetaminophen 500 mg tablet (Tylenol Extra Strength) 1,000 mg (2 x 500 mg) PO TID #100 tabs 09/11/24
doxycycline monohydrate 100 mg capsule 100 mg PO BID #10 caps 09/11/24
prednisone 10 mg tablet 10 mg PO DIRECTED #16 tabs 09/11/24
warfarin 5 mg tablet (Jantoven) 5 mg PO QPM #30 tabs 09/11/24
Home Medication Changes
Pending Results: No
Total time spent discharging patient (in min): 41
--- NOTE | 2024-09-11 13:15 | CM ---
Home today no needs.
Plan; Home no needs.
[2024-09-11 14:52] VITALS: BP 135/70
== END 2024-09-11 15:20 | disposition home or self-care (01) | DRG 552 ==
LOC: 4 WEST ACU 10:13
PROVIDERS: ADMITTING PHYSICIAN Hospitalist; ATTENDING PHYSICIAN Internal Medicine; CONSULT PHYSICIAN Psychiatry & Neurology Clinical Neurophysiology; EMERGENCY PHYSICIAN Student in an Organized Health Care Education/Training Program
DX: M54.2 Cervicalgia (principal); I48.92 Unspecified atrial flutter; I50.32 Chronic diastolic (congestive) heart failure; J10.1 Influenza due to other identified influenza virus with other respiratory manifestations; I48.0 Paroxysmal atrial fibrillation; Y92.009 Unspecified place in unspecified non-institutional (private) residence as the place of occurrence of the external cause; W01.0XXA Fall on same level from slipping, tripping and stumbling without subsequent striking against object, initial encounter; Q33.1 Accessory lobe of lung; Z91.81 History of falling; M54.50 Low back pain, unspecified; M79.10 Myalgia, unspecified site
CPT/HCPCS: 70450; 70553; 71250; 72125; 72156; 80048; 80053; 81003; 81015; 82550; 83690; 85025; 85027; 85610; 85652; 85730; 86140; 93005; 96360; 96361; 97110; 97116; 97163; 97166; 97530; 99285; A9575

== ENCOUNTER → 2024-09-13 09:27 | Outpatient (REF) | payer MEDICARE, OTHER, SELFPAY ==
[2024-09-13 10:17] LABS: INR 1.36
== END ==
LOC: REG 09:27
PROVIDERS: ATTENDING PHYSICIAN Internal Medicine; FAMILY PHYSICIAN Internal Medicine
DX: Z79.01 Long term (current) use of anticoagulants (principal)
CPT/HCPCS: 36415; 85610

== ENCOUNTER → 2024-09-16 10:15 | Outpatient (REF) | payer MEDICARE, OTHER, SELFPAY ==
[2024-09-16 11:03] LABS: INR 1.96; PT 22.5 Sec (11.4-14.6)
== END ==
LOC: REG 10:15
PROVIDERS: ATTENDING PHYSICIAN Internal Medicine
DX: I48.0 Paroxysmal atrial fibrillation (principal)
CPT/HCPCS: 36415; 85610

== ENCOUNTER → 2024-09-20 09:32 | Outpatient (REF) | payer MEDICARE, OTHER, SELFPAY ==
[2024-09-20 11:36] LABS: INR 1.98; PT 22.7 Sec (11.4-14.6)
== END ==
LOC: REG 09:32
PROVIDERS: ATTENDING PHYSICIAN Internal Medicine
DX: I48.0 Paroxysmal atrial fibrillation (principal)
CPT/HCPCS: 36415; 85610

== ENCOUNTER → 2024-09-26 08:51 | Outpatient (REF) | payer MEDICARE, OTHER, SELFPAY ==
[2024-09-26 09:42] LABS: INR 2.41; PT 26.2 Sec (11.4-14.6)
== END ==
LOC: REG 08:51
PROVIDERS: ATTENDING PHYSICIAN Internal Medicine
DX: I48.0 Paroxysmal atrial fibrillation (principal)
CPT/HCPCS: 36415; 85610

== ENCOUNTER → 2024-10-03 08:47 | Outpatient (REF) | payer MEDICARE, OTHER, SELFPAY ==
[2024-10-03 09:28] LABS: INR 2.77; PT 29.2 Sec (11.4-14.6)
== END ==
LOC: REG 08:47
PROVIDERS: ATTENDING PHYSICIAN Internal Medicine
DX: I48.0 Paroxysmal atrial fibrillation (principal)
CPT/HCPCS: 36415; 85610

== ENCOUNTER → 2024-10-06 13:02 | Outpatient (REF) | payer MEDICARE, OTHER, SELFPAY ==
[2024-10-06 13:51] LABS: % Basophils 0.5 % (0-2); % Eosinophils 1.3 % (0-6); % Immature Granulocytes 0.3 % (0-0.5); % Lymphocytes 34.4 % (20.5-51.1); % Neutrophils 50.5 % (42.2-75.2); Absolute Eosinophils 0.1 10^3/uL (0-0.7); Absolute Lymphocytes 1.3 10^3/uL (1.2-3.4); Absolute Monocytes 0.5 10^3/uL (0.1-0.6); Absolute Neutrophils 1.9 10^3/uL (1.4-6.5); Hematocrit 40.5 % (39.0-52.0); Hemoglobin 13.3 g/dL (13.0-18.0); Mean Corp Hgb Conc. 32.8 g/dL (33.0-37.0); Mean Corpuscular Hgb 29.3 pg (27.0-31.0); Mean Corpuscular Volume 89.2 fL (80.0-94.0); Mean Platelet Volume 12.8 fL (7.4-10.4); Nucleated Red Blood Cells % 0 % (-); Platelet Count 118 10^3/uL (130-400); Red Blood Cell Count 4.54 10^6/uL (4.70-6.10); Red Cell Dist. Width 15.4 % (11.5-14.5); White Blood Cell Count 3.8 10^3/uL (4.8-10.8)
[2024-10-06 13:56] LABS: PT 21.4 Sec (11.4-14.6)
== END ==
LOC: REG 13:02
PROVIDERS: ATTENDING PHYSICIAN Internal Medicine
DX: I48.0 Paroxysmal atrial fibrillation (principal); I42.9 Cardiomyopathy, unspecified; R73.03 Prediabetes; K92.1 Melena
CPT/HCPCS: 36415; 85025; 85610

== ENCOUNTER → 2024-10-10 08:28 | Outpatient (REF) | payer MEDICARE, OTHER, SELFPAY ==
[2024-10-10 09:30] LABS: INR 2.82; PT 29.6 Sec (11.4-14.6)
== END ==
LOC: REG 08:28
PROVIDERS: ATTENDING PHYSICIAN Internal Medicine
DX: I48.0 Paroxysmal atrial fibrillation (principal)
CPT/HCPCS: 36415; 85610

== ENCOUNTER 2024-10-11 07:52 | Day surgery (SDC) | payer MEDICARE, OTHER, SELFPAY | END 2024-10-11 10:42 | disposition home or self-care (01) | LOC: CATH 07:52 | PROVIDERS: ATTENDING PHYSICIAN Internal Medicine Cardiovascular Disease; OTHER PHYSICIAN Internal Medicine | DX: Z45.09 Encounter for adjustment and management of other cardiac device (principal); I08.1 Rheumatic disorders of both mitral and tricuspid valves; I48.0 Paroxysmal atrial fibrillation; I50.32 Chronic diastolic (congestive) heart failure; Z79.01 Long term (current) use of anticoagulants | CPT/HCPCS: 93312; 93320; 93325 ==

== ENCOUNTER → 2024-11-24 07:57 | Outpatient (REF) | payer MEDICARE, OTHER, SELFPAY ==
[2024-11-24 10:15] LABS: TSH Reflex To Free T4 3.19 uIU/ml (0.47-4.68)
== END ==
LOC: REG 07:57
PROVIDERS: ATTENDING PHYSICIAN Internal Medicine
DX: I48.0 Paroxysmal atrial fibrillation (principal)
CPT/HCPCS: 36415; 84443

== ENCOUNTER → 2024-12-02 10:37 | Outpatient (REF) | payer MEDICARE, OTHER, SELFPAY ==
[2024-12-02 11:28] LABS: Free T3 2.95 pg/ml (2.77-5.27)
== END ==
LOC: REG 10:37
PROVIDERS: ATTENDING PHYSICIAN Internal Medicine
DX: Z79.899 Other long term (current) drug therapy (principal)
CPT/HCPCS: 36415; 84439; 84481

== ENCOUNTER 2025-02-17 20:51 | Emergency (ER) | payer MEDICARE, OTHER, SELFPAY ==
[2025-02-17 20:53] VITALS: BP 132/93
[2025-02-17 21:02] LABS: Hematocrit 43.6 % (39.0-52.0); Hemoglobin 15.4 g/dL (13.0-18.0); Mean Corp Hgb Conc. 35.3 g/dL (33.0-37.0); Mean Corpuscular Volume 89.5 fL (80.0-94.0); Nucleated Red Blood Cells % 0 % (-); Platelet Count 147 10^3/uL (130-400); Red Cell Dist. Width 12.2 % (11.5-14.5)
[2025-02-17 21:13] LABS: INR 0.98; PT 13.3 Sec (11.4-14.6)
[2025-02-17 21:14] LABS: APTT 24.3 Sec (23.4-35.0)
[2025-02-17 21:19] LABS: ALT (SGPT) 23 U/L (0-50); AST (SGOT) 28 U/L (17-59); Albumin 4.4 g/dl (3.5-5.0); Alkaline Phosphatase 68 U/L (38-126); Blood Urea Nitrogen 22 mg/dl (9-20); Calcium 9.6 mg/dl (8.4-10.2); Carbon Dioxide 26 mmol/L (22-30); Chloride 107 mmol/L (98-107); Glucose 110 mg/dl (70-99); Potassium 4.1 mmol/L (3.5-5.1); Sodium 139 mmol/L (135-145); Total Protein 7.1 g/dl (6.3-8.2); eGFR > 60.00
[2025-02-17 23:30] VITALS: BP 137/83
--- NOTE | 2025-02-17 23:37 | ED.GENMED ---
History of Present Illness
General
Chief Complaint: Vascular Symptoms
Source: patient
Exam Limitations: none
Time Seen by Provider: 02/17/25 23:10
History of Present Illness
History of Present Illness:
64yoM with a history of atrial fibrillation s/p Watchman procedure no longer on anticoagulation, hypertension, and hyperlipidemia presenting for evaluation of multiple complaints. First, he reports feeling coldness in both of his feet for the past
several weeks. Symptoms are mainly present when he has his legs elevated. He denies any paresthesias, claudication, chest pain, shortness of breath. He also reports bruising to his left forearm that he noticed today. He denies any trauma to the
area.
Past History
Past History
ED Past Medical History: Arrthythmia (Atrial fibrillation), Cancer (Skin CA) and Other (Colon polyps)
ED Past Surgical History: Orthopedic (Left ACL replacement, Meniscus repair, Left shoulder surgery. Left hip fracture repair) and Other (Hernia, Skin graft)
Social History
Tobacco: Non-smoker
Alcohol: None
Drug: None
Personal:
Living: with family
Phy Exam
General Physical Exam
General Presentation: well appearing and no apparent distress
General Skin: warm and dry
General Habitus: normal
General Mental: alert
ENT Exam
ENT Exam: normocephalic
Pulmonary Exam
Pulmonary Exam: no respiratory distress
Neurological Exam
Neurological Exam: alert
Raymond Coma Scale
Eye Opening: Spontaneous
Verbal Response: Oriented
Motor Response: Obeys Commands
GCS Total Score: 15
Musculoskeletal Exam
Musculoskeletal Exam: other (Bilateral feet warm to touch and color normal. Cap refill <2 seconds. Strong DP doppler signals bilaterally.)
Skin Exam
Skin Exam: warm/dry and other (Irregular purple discoloration noted to L forearm)
Psychiatric Exam
Psychiatric Exam: normal mood/affect
Course
Orders/Labs/Results
Orders:
Orders
02/17/25 20:57
Complete Blood Count/With Diff Urgent
Comprehensive Metabolic Panel Urgent
PT/INR [Prothrombin Time] Urgent
Is patient on Coumadin/Warfarin?: No
Comment: [email or web address]
PTT Urgent
02/17/25 21:48
US Periph Venous LOWER Ext Dev Urgent
Comment:
Reason For Exam: r/o DVT, b/l foot numbness and tingling
Abnormal Lab Results
02/17/25
20:57
MCH 31.6 H pg
(27.0-31.0)
MPV 11.3 H fL
(7.4-10.4)
Absolute Monos (auto) 1.0 H 10^3/uL
(0.1-0.6)
Monocytes % 9.9 H %
(1.7-9.3)
BUN 22 H mg/dl
(9-20)
Glucose 110 H mg/dl
(70-99)
02/17/25 20:57
02/17/25 20:57
Vital Signs
Initial and Last Documented VS:
Initial Vital Signs
Temp Pulse Resp BP Pulse Ox
97.8 F 89 16 132/93 97
02/17/25 20:53 02/17/25 20:53 02/17/25 20:53 02/17/25 20:53 02/17/25 20:53
Last Documented Vital Signs
Temp Pulse Resp BP Pulse Ox
97.8 F 89 16 134/94 97
02/17/25 20:53 02/17/25 20:53 02/17/25 20:53 02/17/25 23:45 02/17/25 23:52
MDM/Problems Addressed
Differential Diagnosis Includes:
64yoM here for atraumatic bruising to L forearm that started today. Also c/o foot coldness x several weeks. VSS. He is well-appearing in no distress. There is a purple discoloration noted to the left forearm. Both feet are warm and well-perfused.
Strong Doppler signals present bilaterally and cap refill normal. No clinical evidence of arterial occlusion. Venous duplex was obtained in triage which is negative for DVT. Labs unremarkable including normal hemoglobin, platelets, and coags.
ABIs checked at bedside and SHEY 1.2 on right and 1.27 on left which are within normal limits. Patient stable for discharge with PCP follow-up. 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
*Pulse Oximetry
SaO2: 97
Oxygen Mode of Delivery: Room air
Patient hypoxic: no (97%)
*Critical Care Note
Total Time (30-74mins, 75-104mins- exclusive of procedures): Not Applicable
ED Attending Note
-
Portions of this chart may have been created with voice recognition software.� Occasional wrong word or��sound alike� substitutions may have occurred due to the inherent limitations of voice recognition software.
Discharge Plan
Departure
Patient Disposition: Home (Routine Discharge)
Date of Disposition: 02/17/25
Time of Disposition: 23:49
Patient with high blood pressure during this ER visit?: No
Discharge Problem:
Sensation of cold in leg, Contusion of left forearm
Instructions: Taking care of bruises
Prescriptions:
No Action
gabapentin 300 mg Capsule
300 mg PO TID
baclofen 5 mg Tablet
5 mg PO TID
ferrous sulfate 325 mg (65 mg iron) Tablet
325 mg PO Q48H
diazepam 10 mg Tablet
10 mg PO HS
metoprolol succinate 100 mg Tablet Extended Release 24 Hr
100 mg PO BID
amiodarone 200 mg Tablet
200 mg PO DAILY
warfarin [Jantoven] 5 mg tablet
5 mg PO SUTUWETHFRSA
warfarin 10 mg Tablet
10 mg PO MO
Activity Restrictions/Additional Instructions:
Please follow-up with your family doctor and machine leather trimmer next week. Return to the ER with any new or worsening symptoms.
Interventions
Interventions:
*Risk Screen - Suicide Last Done: 02/17/25 20:54
*General Assessment Last Done: 02/17/25 23:50
*Neglect/Abuse Screening Last Done: 02/17/25 20:54
*ED- Fall Risk Assessment Last Done: 02/17/25 23:50
*ED COVID-19 Vaccine History Last Done: 02/17/25 23:50
*Nursing Disposition Last Done: 02/18/25 00:04
ED- Cardiac Assessment Last Done: 02/17/25 23:52
ED- Pulmonary Assessment Last Done: 02/17/25 23:52
ED-Peripheral Vascular Assessment Last Done: 02/17/25 23:52
ED-Skin Assessment Last Done: 02/17/25 23:52
Discharge Date and Time
Discharge Date/Time: 02/18/25 00:07
Print Language: CZECH
[2025-02-17 23:45] VITALS: BP 134/94
[2025-02-17 23:46] VITALS: BMI 29.2
== END 2025-02-18 00:07 | disposition home or self-care (01) ==
LOC: EMR 20:51
PROVIDERS: Student in an Organized Health Care Education/Training Program; EMERGENCY PHYSICIAN Emergency Medicine
DX: S50.12XA Contusion of left forearm, initial encounter (principal); R20.2 Paresthesia of skin; R20.0 Anesthesia of skin; X58.XXXA Exposure to other specified factors, initial encounter; I10 Essential (primary) hypertension; E78.5 Hyperlipidemia, unspecified; I48.91 Unspecified atrial fibrillation
CPT/HCPCS: 99284; 80053; 85025; 85610; 85730; 93970

== ENCOUNTER 2025-04-12 06:16 | Day surgery (SDC) | payer MEDICARE, OTHER, SELFPAY ==
[2025-04-12 09:57] VITALS: BMI 27.1
[2025-04-12 09:58] VITALS: BP 127/88
[2025-04-12] MEDS: CYCLOGYL 1% EYE DROPS 1 DROP OPHTH (10:01)
[2025-04-12] MEDS: ALCAINE 0.5% EYE DROPS 1 DROP OPHTH (10:01)
[2025-04-12] MEDS: NEO-SYNEPHRINE 2.5% OPH SOL. 1 DROP OPHTH (10:02)
[2025-04-12] MEDS: POLYTRIM OPHTHALMIC SOLUTION 1 DROP OPHTH (10:02)
[2025-04-12] MEDS: PRED FORTE 1% EYE DROPS 1 DROP OPHTH (10:02)
[2025-04-12] MEDS: MYDRIACYL 1 DROP OPHTH (10:02)
[2025-04-12] MEDS: AKTEN OPHTHALMIC GEL 1 ML OPHTH (10:02)
[2025-04-12] MEDS: NORMOSOL-R/PLASMALYTE-A 1000 IV (10:03)
[2025-04-12 11:25] VITALS: BP 131/85
== END 2025-04-12 12:00 | disposition home or self-care (01) ==
LOC: SDS 06:16
PROVIDERS: ATTENDING PHYSICIAN Ophthalmology
DX: H25.12 Age-related nuclear cataract, left eye (principal)
CPT/HCPCS: 66984

== ENCOUNTER 2025-04-26 06:27 | Day surgery (SDC) | payer MEDICARE, OTHER, SELFPAY ==
[2025-04-26 09:38] VITALS: BMI 27.1
[2025-04-26 09:39] VITALS: BMI 27.1
[2025-04-26 09:40] VITALS: BP 117/85
[2025-04-26] MEDS: ALCAINE 0.5% EYE DROPS 2 DROP OPHTH (09:42)
[2025-04-26] MEDS: MYDRIACYL 1 DROP OPHTH (09:43)
[2025-04-26] MEDS: CYCLOGYL 1% EYE DROPS 1 DROP OPHTH (09:43)
[2025-04-26] MEDS: AKTEN OPHTHALMIC GEL 1 ML OPHTH (09:44)
[2025-04-26] MEDS: POLYTRIM OPHTHALMIC SOLUTION 1 DROP OPHTH (09:44)
[2025-04-26] MEDS: PRED FORTE 1% EYE DROPS 1 DROP OPHTH (09:44)
[2025-04-26] MEDS: NEO-SYNEPHRINE 2.5% OPH SOL. 1 DROP OPHTH (09:44)
[2025-04-26] MEDS: NORMOSOL-R/PLASMALYTE-A 1000 IV (09:45)
[2025-04-26 10:52] VITALS: BP 111/73
[2025-04-26 11:50] VITALS: BP 95/60
== END 2025-04-26 12:18 | disposition home or self-care (01) ==
LOC: SDS 06:27
PROVIDERS: ATTENDING PHYSICIAN Ophthalmology
DX: H25.11 Age-related nuclear cataract, right eye (principal)
CPT/HCPCS: 66984